=== PATIENT | female | born 1950 | race African-American/Black ===

== ENCOUNTER 2018-07-07 16:54 | Inpatient (IN) | payer MEDICARE, MEDICAID ==
[~2018-07-07] VITALS: Ht 162.6 cm; Wt 131.6 kg
[~2018-07-07 16:54] MED LIST: ALLO100T PO; CARV25TA47 PO; ESCI10TA54 PO; FLUT1DIS2 IH; FURO-151 PO; GABA-531 PO; INSU100I7 SQ; IVAB5TAB PO; LEVVL SQ; MONT5TAB13 PO; SACU1TAB PO; SIMV40TA5 PO
[2018-07-07] MEDS ORDERED: IPRATROPIUM BROMIDE (0.02%) 0.5MG/2.5ML NEB HHN STA (16:57)
[2018-07-07] MEDS ORDERED: METHYLPREDNISOLONE SOD SUCC 125 MG/2 ML VIAL IV STA (16:57)
[2018-07-07] MEDS ORDERED: ALBUTEROL (0.083%) 2.5MG/3ML NEB HHN STA (16:57)
[2018-07-07] MEDS ORDERED: MAGNESIUM 2 G PREMIX 50 ML IV ONE (17:00)
[2018-07-07 18:18] LABS: BASOPHILS % 0.7 % (0.0-2.0); EOSINOPHILS % 1.7 % (0.0-5.0); HEMATOCRIT. 35.1 % (36.0-48.0); HEMOGLOBIN. 11.6 g/dL (12.0-16.0); LYMPHOCYTES % 25.9 % (20.0-50.0); MEAN CORPUSCULAR HEMOGLOBIN 29.6 pg (28.0-32.0); MEAN CORPUSCULAR VOLUME 89.3 fL (81.0-99.0); MEAN PLATELET VOLUME 9.7 fl (7.4-10.4); MONOCYTES % 11.6 % (2.0-8.0); NEUTROPHILS % 60.1 % (40.0-76.0); PLATELET 166 x1000/uL (130-400); RED BLOOD CELL COUNT 3.93 mill/uL (4.2-5.4); RED CELL DISTRIBUTION WIDTH 17.1 % (11.6-14.6)
[2018-07-07 18:23] LABS: CHLORIDE 108 mEq/L (98-107)
[2018-07-07 20:31] LABS: CLARITY URINE CLEAR (CLEAR); COLOR URINE YELLOW (YELLOW); KETONES URINE NEGATIVE (NEGATIVE); LEUKOCYTE ESTERASE URINE NEGATIVE (NEGATIVE); NITRITE URINE NEGATIVE (NEGATIVE); OCCULT BLOOD URINE NEGATIVE (NEGATIVE); PROTEIN URINE NEGATIVE (NEGATIVE); SPECIFIC GRAVITY URINE 1.015 (1.005-1.030)
[2018-07-07] MEDS ORDERED: IPRATROPIUM/ALBUTEROL 0.5-3(2.5)MG/3ML NEB INH PRN (22:00)
[2018-07-07] MEDS ORDERED: CLONIDINE 0.1MG TABLET PO PRN (22:00)
[2018-07-07] MEDS ORDERED: ACETAMINOPHEN 325MG TABLET PO PRN (22:00)
[2018-07-07] MEDS ORDERED: MAGNESIUM/ALUMINUM HYDROXIDE/SIMETHICONE 30ML UDC PO PRN (22:00)
[2018-07-07] MEDS ORDERED: ONDANSETRON HCL 4MG/2ML INJ IV PRN (22:00)
[2018-07-07] MEDS ORDERED: NA PHOS,M-B/NA PHOS,DI-BA ENEMA 118ML PR PRN (22:00)
[2018-07-07] MEDS ORDERED: MORPHINE SULFATE 10MG/5ML ORAL SOLN UDC PO PRN (22:00)
[2018-07-07 23:00] VITALS: BP 134/72
[2018-07-07] MEDS ORDERED: PREG75CA PO (23:21)
[2018-07-07] MEDS ORDERED: TIOT18CA3 INH (23:40)
[2018-07-07] MEDS ORDERED: HYDR-4001 MT (23:40)
[2018-07-07] MEDS ORDERED: DEXTROSE 50% WATER 50ML SYRINGE IV PRN (23:45)
[2018-07-08] VITALS (12 sets, daily range): BP systolic 116–142; BP diastolic 57–90
[2018-07-08 00:04] LABS: CREATINE KINASE 62 IU/L (26-192)
[2018-07-08 00:05] LABS: CREATINE KINASE MB FRACTION < 1.0 ng/mL (0.5-3.6)
[2018-07-08] MEDS: HYDROCODONE/ACETAMINOPHEN 5/325MG TABLET PO PRN ×2 (00:18→08:32)
[2018-07-08 07:12] LABS: BASOPHILS % 0.2 % (0.0-2.0); HEMATOCRIT. 36.8 % (36.0-48.0); HEMOGLOBIN. 11.8 g/dL (12.0-16.0); LYMPHOCYTES % 14.1 % (20.0-50.0); MEAN CORPUSCULAR HEMOGLOBIN 28.9 pg (28.0-32.0); MEAN CORPUSCULAR VOLUME 90.1 fL (81.0-99.0); MEAN PLATELET VOLUME 10.1 fl (7.4-10.4); MONOCYTES % 1.5 % (2.0-8.0); NEUTROPHILS % 84.2 % (40.0-76.0); PLATELET 160 x1000/uL (130-400); RED BLOOD CELL COUNT 4.08 mill/uL (4.2-5.4); RED CELL DISTRIBUTION WIDTH 17.3 % (11.6-14.6)
[2018-07-08 07:47] LABS: CHLORIDE 108 mEq/L (98-107)
[2018-07-08 07:56] LABS: LDL CHOLESTEROL 78 mg/dL (5-100)
[2018-07-08 07:58] LABS: CREATINE KINASE 61 IU/L (26-192)
[2018-07-08 07:59] LABS: HDL CHOLESTEROL 48 mg/dL (40-59)
[2018-07-08 08:02] LABS: CREATINE KINASE MB FRACTION < 1.0 ng/mL (0.5-3.6)
[2018-07-08] MEDS: BLOOD SUGAR DIAGNOSTIC STRIP TEST SCH ×4 (08:15→21:22)
[2018-07-08] MEDS: ENOXAPARIN 40MG/0.4ML SYR SUBCUT SCH ×2 (08:29→21:21)
[2018-07-08] MEDS: FUROSEMIDE 40MG/4ML VIAL IV SCH ×2 (08:29→17:10)
[2018-07-08] MEDS: POTASSIUM CHLORIDE 20MEQ TABLET SR PO SCH (08:30)
[2018-07-08] MEDS: CARVEDILOL 25MG TABLET PO SCH ×2 (08:30→21:20)
[2018-07-08] MEDS: INSULIN LISPRO 100 UNITS/ML SUBCUT SCH ×4 (08:32→21:00)
[2018-07-08] MEDS: CITALOPRAM HYDROBROMIDE 10MG TABLET PO SCH (12:13)
[2018-07-08 12:17] LABS: BG BASE EXCESS 0.6 mmol/L (-2.0-2.0); BG CARBOXYHEMOGLOBIN 0.4 % (0.5-1.5); BG DEOXYHEMOGLOBIN 2.7 % (0.0-5.0); BG FRACTION INSPIRED OXYGEN 26; BG HCO3 ACT 25.3 mmol/L (22.0-26.0); BG METHEMOGLOBIN 0.3 % (0.0-1.5); BG OXYGEN SATURATION 97.3 % (92.0-98.5); BG OXYHEMOGLOBIN 96.6 % (94.0-97.0); BG PCO2 40.8 mmHg (35.0-45.0); BG PO2 96.5 mmHg (75.0-100.0); BG SAMPLE SITE RIGHT RADIAL; BG TOTAL HEMOGLOBIN 11.9 g/dL (12.0-18.0); BG VENT MODE NASAL CANNULA
[2018-07-08] MEDS ORDERED: ALPRAZOLAM 0.5 MG TABLET PO PRN (14:45)
[2018-07-08] MEDS: MORPHINE SULFATE 10MG/5ML ORAL SOLN UDC PO PRN ×2 (15:50→23:02)
[2018-07-08 19:29] LABS: *AMPHETAMINES SCREEN URINE NEGATIVE (NEGATIVE); *BARBITURATES SCREEN URINE NEGATIVE (NEGATIVE); *BENZODIAZEPINES SCREEN URINE NEGATIVE (NEGATIVE)
[2018-07-08 19:30] LABS: *COCAINE SCREEN URINE NEGATIVE (NEGATIVE); METHADONE URINE SCREEN NEGATIVE (NEGATIVE); OPIATES URINE SCREEN PRESUMTIVE POSITIVE (NEGATIVE); PHENCYCLIDINE URINE SCREEN NEGATIVE (NEGATIVE)
[2018-07-08 19:31] LABS: CANNABINOID URINE SCREEN NEGATIVE (NEGATIVE)
[2018-07-09] VITALS (12 sets, daily range): BP systolic 108–133; BP diastolic 54–84
[2018-07-09] MEDS: INSULIN LISPRO 100 UNITS/ML SUBCUT SCH ×4 (08:00→21:00)
[2018-07-09] MEDS: BLOOD SUGAR DIAGNOSTIC STRIP TEST SCH ×4 (08:25→21:19)
[2018-07-09] MEDS: LOSARTAN POTASSIUM 25 MG TABLET PO SCH (08:26)
[2018-07-09] MEDS: FUROSEMIDE 40MG/4ML VIAL IV SCH ×2 (08:26→17:45)
[2018-07-09] MEDS: ENOXAPARIN 40MG/0.4ML SYR SUBCUT SCH ×2 (08:26→21:20)
[2018-07-09] MEDS: CARVEDILOL 25MG TABLET PO SCH ×2 (08:27→21:00)
[2018-07-09] MEDS: CITALOPRAM HYDROBROMIDE 10MG TABLET PO SCH (08:27)
[2018-07-09] MEDS: POTASSIUM CHLORIDE 20MEQ TABLET SR PO SCH (08:27)
[2018-07-09 09:53] LABS: BASOPHILS % 0.4 % (0.0-2.0); EOSINOPHILS % 0.4 % (0.0-5.0); HEMATOCRIT. 35.8 % (36.0-48.0); HEMOGLOBIN. 11.8 g/dL (12.0-16.0); LYMPHOCYTES % 9.9 % (20.0-50.0); MEAN CORPUSCULAR HEMOGLOBIN 29.6 pg (28.0-32.0); MEAN CORPUSCULAR VOLUME 90.1 fL (81.0-99.0); MEAN PLATELET VOLUME 9.8 fl (7.4-10.4); NEUTROPHILS % 77.3 % (40.0-76.0); PLATELET 152 x1000/uL (130-400); RED BLOOD CELL COUNT 3.98 mill/uL (4.2-5.4); RED CELL DISTRIBUTION WIDTH 16.7 % (11.6-14.6)
[2018-07-09] MEDS: MORPHINE SULFATE 10MG/5ML ORAL SOLN UDC PO PRN ×2 (09:53→15:25)
[2018-07-09 11:34] LABS: CHLORIDE 102 mEq/L (98-107)
[2018-07-09 11:42] LABS: CREATINE KINASE MB FRACTION < 1.0 ng/mL (0.5-3.6); LDL CHOLESTEROL 80 mg/dL (5-100)
[2018-07-09 11:43] LABS: CREATINE KINASE 53 IU/L (26-192); HDL CHOLESTEROL 49 mg/dL (40-59)
[2018-07-09] MEDS: MONTELUKAST SODIUM 10MG TABLET PO SCH (17:56)
[2018-07-10] MEDS: MORPHINE SULFATE 10MG/5ML ORAL SOLN UDC PO PRN ×3 (02:13→23:43)
[2018-07-10 06:00] VITALS: BP 132/73
[2018-07-10] MEDS: BLOOD SUGAR DIAGNOSTIC STRIP TEST SCH ×4 (07:30→21:43)
[2018-07-10 08:00] VITALS: BP 133/63
[2018-07-10] MEDS: INSULIN LISPRO 100 UNITS/ML SUBCUT SCH ×4 (08:00→21:00)
[2018-07-10] MEDS: ENOXAPARIN 40MG/0.4ML SYR SUBCUT SCH ×2 (09:36→21:43)
[2018-07-10] MEDS: FUROSEMIDE 40MG/4ML VIAL IV SCH ×2 (09:36→17:32)
[2018-07-10] MEDS: POTASSIUM CHLORIDE 20MEQ TABLET SR PO SCH (09:36)
[2018-07-10] MEDS: LOSARTAN POTASSIUM 25 MG TABLET PO SCH (09:36)
[2018-07-10] MEDS: CARVEDILOL 25MG TABLET PO SCH ×2 (09:38→21:47)
[2018-07-10] MEDS: CITALOPRAM HYDROBROMIDE 10MG TABLET PO SCH (09:40)
[2018-07-10 10:00] VITALS: BP 111/62
[2018-07-10 12:00] VITALS: BP 108/73
[2018-07-10 16:00] VITALS: BP 113/64
[2018-07-10] MEDS: MONTELUKAST SODIUM 10MG TABLET PO SCH (17:32)
[2018-07-11 07:44] LABS: HEMATOCRIT. 35.4 % (36.0-48.0); HEMOGLOBIN. 11.7 g/dL (12.0-16.0); MEAN CORPUSCULAR HEMOGLOBIN 29.7 pg (28.0-32.0); MEAN CORPUSCULAR VOLUME 89.7 fL (81.0-99.0); MEAN PLATELET VOLUME 9.8 fl (7.4-10.4); PLATELET 147 x1000/uL (130-400); RED BLOOD CELL COUNT 3.95 mill/uL (4.2-5.4); RED CELL DISTRIBUTION WIDTH 16.4 % (11.6-14.6)
[2018-07-11 08:00] VITALS: BP 114/67
[2018-07-11] MEDS: INSULIN LISPRO 100 UNITS/ML SUBCUT SCH ×4 (08:00→21:00)
[2018-07-11] MEDS: BLOOD SUGAR DIAGNOSTIC STRIP TEST SCH ×3 (08:15→17:25)
[2018-07-11 08:41] LABS: CHLORIDE 100 mEq/L (98-107)
[2018-07-11] MEDS: FUROSEMIDE 40MG/4ML VIAL IV SCH ×2 (09:29→17:33)
[2018-07-11] MEDS: ENOXAPARIN 40MG/0.4ML SYR SUBCUT SCH ×2 (09:29→23:10)
[2018-07-11] MEDS: LOSARTAN POTASSIUM 25 MG TABLET PO SCH (09:29)
[2018-07-11] MEDS: POTASSIUM CHLORIDE 20MEQ TABLET SR PO SCH (09:29)
[2018-07-11] MEDS: CARVEDILOL 25MG TABLET PO SCH ×2 (09:29→23:09)
[2018-07-11] MEDS: CITALOPRAM HYDROBROMIDE 10MG TABLET PO SCH (09:30)
[2018-07-11 12:00] VITALS: BP 118/53
[2018-07-11 13:38] LABS: PLATELET ESTIMATE NORMAL
[2018-07-11 15:49] VITALS: BP 118/53
[2018-07-11] MEDS: MONTELUKAST SODIUM 10MG TABLET PO SCH (17:33)
[2018-07-11 20:30] VITALS: BP 132/77
[2018-07-11 22:00] VITALS: BP 127/75
[2018-07-12] VITALS: BP 130/74
[2018-07-12 02:00] VITALS: BP 106/56
[2018-07-12 04:26] VITALS: BP 107/55
[2018-07-12] MEDS: BLOOD SUGAR DIAGNOSTIC STRIP TEST SCH (07:59)
[2018-07-12 08:00] VITALS: BP 101/62
[2018-07-12] MEDS: INSULIN LISPRO 100 UNITS/ML SUBCUT SCH (08:00)
[2018-07-12] MEDS: CARVEDILOL 25MG TABLET PO SCH (09:00)
[2018-07-12] MEDS: LOSARTAN POTASSIUM 25 MG TABLET PO SCH (09:00)
[2018-07-12] MEDS: POTASSIUM CHLORIDE 20MEQ TABLET SR PO SCH (09:26)
[2018-07-12] MEDS: FUROSEMIDE 40MG/4ML VIAL IV SCH (09:26)
[2018-07-12] MEDS: ENOXAPARIN 40MG/0.4ML SYR SUBCUT SCH (09:27)
[2018-07-12] MEDS: CITALOPRAM HYDROBROMIDE 10MG TABLET PO SCH (09:30)
== END 2018-07-12 11:00 | disposition home health service (06) | DRG 291 ==
LOC: ER 16:54 → 5EST 18:59 → EDBEDREQTM 19:00 → EDBEDREQ 19:00 → ENRESERV 21:21 → SUPCPDRO 21:58
PROVIDERS: ADMIT Hospitalist; ATTEND Hospitalist
PROC: 5A09357 Assistance with Respiratory Ventilation, Less than 24 Consecutive Hours, Continuous Positive Airway Pressure (ICD-10-PCS; principal; 2018-07-07)
PROC: 5A09357 Assistance with Respiratory Ventilation, Less than 24 Consecutive Hours, Continuous Positive Airway Pressure (ICD-10-PCS; 2018-07-09)
PROC: 5A09357 Assistance with Respiratory Ventilation, Less than 24 Consecutive Hours, Continuous Positive Airway Pressure (ICD-10-PCS; 2018-07-10)
PROC: 5A09357 Assistance with Respiratory Ventilation, Less than 24 Consecutive Hours, Continuous Positive Airway Pressure (ICD-10-PCS; 2018-07-12)
DX: I11.0 Hypertensive heart disease with heart failure (principal); J96.02 Acute respiratory failure with hypercapnia; J96.01 Acute respiratory failure with hypoxia; J44.1 Chronic obstructive pulmonary disease with (acute) exacerbation; E46 Unspecified protein-calorie malnutrition; E87.2 Acidosis; J45.901 Unspecified asthma with (acute) exacerbation; I69.351 Hemiplegia and hemiparesis following cerebral infarction affecting right dominant side; Z68.42 Body mass index [BMI] 45.0-49.9, adult; I25.10 Atherosclerotic heart disease of native coronary artery without angina pectoris; I42.0 Dilated cardiomyopathy; I27.20 Pulmonary hypertension, unspecified; F32.9 Major depressive disorder, single episode, unspecified; G47.33 Obstructive sleep apnea (adult) (pediatric); E11.65 Type 2 diabetes mellitus with hyperglycemia; M10.9 Gout, unspecified; I49.3 Ventricular premature depolarization; I48.91 Unspecified atrial fibrillation; E87.5 Hyperkalemia; E66.01 Morbid (severe) obesity due to excess calories; E78.00 Pure hypercholesterolemia, unspecified; E11.42 Type 2 diabetes mellitus with diabetic polyneuropathy; Z92.21 Personal history of antineoplastic chemotherapy; Z90.710 Acquired absence of both cervix and uterus; Z85.72 Personal history of non-Hodgkin lymphomas; Z85.42 Personal history of malignant neoplasm of other parts of uterus; Z80.1 Family history of malignant neoplasm of trachea, bronchus and lung; Z82.49 Family history of ischemic heart disease and other diseases of the circulatory system; Z83.3 Family history of diabetes mellitus; Z95.5 Presence of coronary angioplasty implant and graft; Z87.891 Personal history of nicotine dependence; Z79.899 Other long term (current) drug therapy; Z95.810 Presence of automatic (implantable) cardiac defibrillator; I50.23 Acute on chronic systolic (congestive) heart failure
CPT/HCPCS: 36415; 36600; 71045; 80061; 80305; 82375; 82550; 82553; 82805; 82962; 83605; 83735; 83880; 84443; 84484; 85379; 87804; 93005; 93306; 93970; 94640; 94660; 96365; 96366; 96375; 99285; J1650; J1815; J1940; J2930; J3475; J7611; J7620; A4315

== ENCOUNTER 2019-09-03 22:15 | Inpatient (IN) | payer MEDICARE, MEDICAID ==
[~2019-09-03] VITALS: Ht 165.1 cm; Wt 145.1 kg
[~2019-09-03 22:15] MED LIST changes: -ESCI10TA54 PO; +ESCI10TA61 PO; -GABA-531 PO; +HYDR-4001 MT; +PREG75CA PO; +SIMV-46 PO; -SIMV40TA5 PO; +TIOT18CA3 INH
[2019-09-03] MEDS ORDERED: NITROGLYCERIN 0.4MG TABLET SL SL PRN (22:30)
[2019-09-03] MEDS ORDERED: FUROSEMIDE 40MG/4ML VIAL IV ONE (22:30)
[2019-09-03 22:49] LABS: BASOPHILS % 0.7 % (0.0-2.0); EOSINOPHILS % 0.7 % (0.0-5.0); HEMATOCRIT. 35.4 % (36.0-48.0); HEMOGLOBIN. 11.5 g/dL (12.0-16.0); LYMPHOCYTES % 11.7 % (20.0-50.0); MEAN CORPUSCULAR HEMOGLOBIN 29.1 pg (28.0-32.0); MEAN CORPUSCULAR VOLUME 89.5 fL (81.0-99.0); MEAN PLATELET VOLUME 9.3 fl (7.4-10.4); MONOCYTES % 11.1 % (2.0-8.0); NEUTROPHILS % 75.8 % (40.0-76.0); PLATELET 211 x1000/uL (130-400); RED BLOOD CELL COUNT 3.96 mill/uL (4.2-5.4); RED CELL DISTRIBUTION WIDTH 17.4 % (11.6-14.6)
[2019-09-03 22:53] LABS: CHLORIDE 109 mEq/L (98-107)
[2019-09-04] VITALS (8 sets, daily range): BP systolic 101–119; BP diastolic 50–70
[2019-09-04] MEDS ORDERED: MAGNESIUM/ALUMINUM HYDROXIDE/SIMETHICONE 30ML UDC PO PRN (02:15)
[2019-09-04] MEDS ORDERED: CLONIDINE 0.1MG TABLET PO PRN (02:15)
[2019-09-04] MEDS ORDERED: NA PHOS,M-B/NA PHOS,DI-BA ENEMA 118ML PR PRN (02:15)
[2019-09-04] MEDS ORDERED: IPRATROPIUM/ALBUTEROL 0.5-3(2.5)MG/3ML NEB NEB PRN (02:15)
[2019-09-04] MEDS ORDERED: LORAZEPAM 2MG/ML CPJ IV PRN (02:15)
[2019-09-04] MEDS ORDERED: GUAIFENESIN 200MG/10ML SUGAR FREE UDC PO PRN (02:15)
[2019-09-04] MEDS ORDERED: DIPHENHYDRAMINE 50MG/ML VIAL IV PRN (02:15)
[2019-09-04] MEDS ORDERED: DOCUSATE SODIUM 100MG CAPSULE PO PRN (02:15)
[2019-09-04] MEDS ORDERED: ONDANSETRON HCL 4MG/2ML INJ IV PRN (02:15)
[2019-09-04 11:42] LABS: CHLORIDE 112 mEq/L (98-107)
[2019-09-04] MEDS: FUROSEMIDE 40MG/4ML VIAL IV SCH ×2 (12:23→17:38)
[2019-09-04] MEDS: ASPIRIN 81MG EC TABLET PO SCH (12:23)
[2019-09-04] MEDS ORDERED: LEVOFLOXACIN 500MG PREMIX 100 ML IV SCH (13:00)
[2019-09-04] MEDS ORDERED: PNEUMOCOCCAL 23-VAL P-SAC VAC 0.5 ML IM ONE (13:15)
[2019-09-04] MEDS: HYDROCODONE/ACETAMINOPHEN 5/325MG TABLET PO PRN (14:51)
[2019-09-04] MEDS ORDERED: NON FORMULARY PATIENT HOME MED XX SCH (17:45)
[2019-09-04] MEDS ORDERED: IPRATROPIUM/ALBUTEROL 0.5-3(2.5)MG/3ML NEB HHN PRN (17:45)
[2019-09-04] MEDS ORDERED: DEXTROSE 50% WATER 50ML SYRINGE IV PRN (20:30)
[2019-09-04] MEDS: CARVEDILOL 6.25 MG TABLET PO SCH (20:57)
[2019-09-04] MEDS: ENOXAPARIN 40MG/0.4ML SYR SUBCUT SCH (20:58)
[2019-09-04] MEDS: MORPHINE SULFATE 2 MG/ML CPJ (NOT FOR IM USE) IV PRN (20:58)
[2019-09-04] MEDS ORDERED: CARVEDILOL 3.125 MG TABLET PO SCH (21:00)
[2019-09-04] MEDS: INSULIN LISPRO 100 UNITS/ML SUBCUT SCH (21:00)
[2019-09-04] MEDS: BLOOD SUGAR DIAGNOSTIC STRIP TEST SCH (21:48)
[2019-09-04] MEDS: SACUBITRIL/VALSARTAN 24/26 TAB PO SCH (22:19)
[2019-09-05] VITALS (14 sets, daily range): BP systolic 104–140; BP diastolic 43–99
[2019-09-05] MEDS: IPRATROPIUM/ALBUTEROL 0.5-3(2.5)MG/3ML NEB HHN SCH ×4 (01:14→21:10)
[2019-09-05] MEDS: BLOOD SUGAR DIAGNOSTIC STRIP TEST SCH ×4 (06:45→20:48)
[2019-09-05] MEDS: INSULIN LISPRO 100 UNITS/ML SUBCUT SCH ×4 (06:45→21:00)
[2019-09-05] MEDS: FUROSEMIDE 40MG/4ML VIAL IV SCH (06:46)
[2019-09-05 07:12] LABS: BASOPHILS % 0.4 % (0.0-2.0); EOSINOPHILS % 1.2 % (0.0-5.0); HEMATOCRIT. 31.5 % (36.0-48.0); HEMOGLOBIN. 10.2 g/dL (12.0-16.0); LYMPHOCYTES % 12.4 % (20.0-50.0); MEAN CORPUSCULAR HEMOGLOBIN 29.3 pg (28.0-32.0); MEAN CORPUSCULAR VOLUME 90.5 fL (81.0-99.0); MONOCYTES % 11.7 % (2.0-8.0); NEUTROPHILS % 74.3 % (40.0-76.0); RED BLOOD CELL COUNT 3.48 mill/uL (4.2-5.4); RED CELL DISTRIBUTION WIDTH 17.6 % (11.6-14.6)
[2019-09-05] MEDS: ASPIRIN 81MG EC TABLET PO SCH (07:46)
[2019-09-05] MEDS: ENOXAPARIN 40MG/0.4ML SYR SUBCUT SCH (07:47)
[2019-09-05] MEDS: SACUBITRIL/VALSARTAN 24/26 TAB PO SCH ×2 (07:50→20:47)
[2019-09-05] MEDS: CARVEDILOL 6.25 MG TABLET PO SCH ×2 (07:50→20:47)
[2019-09-05 07:54] LABS: CHLORIDE 110 mEq/L (98-107)
[2019-09-05 08:03] LABS: LDL CHOLESTEROL 56 mg/dL (5-100)
[2019-09-05 08:05] LABS: HDL CHOLESTEROL 46 mg/dL (40-59); T4 FREE 1.01 ng/dL (0.76-1.46)
[2019-09-05] MEDS ORDERED: LISINOPRIL 5MG TABLET PO SCH (09:00)
[2019-09-05] MEDS ORDERED: SACUBITRIL/VALSARTAN 24/26 TAB PO SCH (09:00)
[2019-09-05] MEDS: LEVOFLOXACIN 500MG PREMIX 100 ML IV SCH (11:00)
[2019-09-05 11:55] LABS: PLATELET 144 x1000/uL (130-400)
[2019-09-05] MEDS: MORPHINE SULFATE 2 MG/ML CPJ (NOT FOR IM USE) IV PRN ×2 (14:45→21:16)
[2019-09-05] MEDS ORDERED: BENZONATATE 100MG CAPSULE PO PRN (15:00)
[2019-09-05] MEDS: FUROSEMIDE 100MG/10ML VIAL IV SCH (20:47)
[2019-09-05] MEDS: ATORVASTATIN CALCIUM 40MG TABLET PO SCH (20:48)
[2019-09-06] VITALS (19 sets, daily range): BP systolic 95–136; BP diastolic 41–81
[2019-09-06] MEDS: IPRATROPIUM/ALBUTEROL 0.5-3(2.5)MG/3ML NEB HHN SCH ×3 (01:30→22:25)
[2019-09-06] MEDS: FUROSEMIDE 100MG/10ML VIAL IV SCH ×3 (06:10→18:00)
[2019-09-06] MEDS: INSULIN LISPRO 100 UNITS/ML SUBCUT SCH ×4 (06:29→20:29)
[2019-09-06] MEDS: BLOOD SUGAR DIAGNOSTIC STRIP TEST SCH ×4 (06:29→20:29)
[2019-09-06] MEDS: ASPIRIN 81MG EC TABLET PO SCH (09:13)
[2019-09-06] MEDS: CARVEDILOL 6.25 MG TABLET PO SCH ×2 (09:22→20:28)
[2019-09-06] MEDS: SACUBITRIL/VALSARTAN 24/26 TAB PO SCH ×2 (09:22→20:29)
[2019-09-06 09:36] LABS: BASOPHILS % 0.5 % (0.0-2.0); EOSINOPHILS % 1.5 % (0.0-5.0); HEMATOCRIT. 29.1 % (36.0-48.0); HEMOGLOBIN. 9.6 g/dL (12.0-16.0); LYMPHOCYTES % 12.4 % (20.0-50.0); MEAN CORPUSCULAR HEMOGLOBIN 29.6 pg (28.0-32.0); MEAN CORPUSCULAR VOLUME 89.7 fL (81.0-99.0); MONOCYTES % 12.5 % (2.0-8.0); NEUTROPHILS % 73.1 % (40.0-76.0); PLATELET 138 x1000/uL (130-400); RED BLOOD CELL COUNT 3.24 mill/uL (4.2-5.4); RED CELL DISTRIBUTION WIDTH 17.2 % (11.6-14.6)
[2019-09-06] MEDS ORDERED: LIDOCAINE HCL/EPINEPHRINE 1%-EPI 1:100,000 20 ML VIAL INFIL SCH (10:45)
[2019-09-06] MEDS: LEVOFLOXACIN 500MG PREMIX 100 ML IV SCH (12:10)
[2019-09-06] MEDS: FUROSEMIDE 40MG TABLET PO SCH (20:29)
[2019-09-06] MEDS: HYDROCODONE/ACETAMINOPHEN 5/325MG TABLET PO PRN (20:59)
[2019-09-06] MEDS: ATORVASTATIN CALCIUM 40MG TABLET PO SCH (20:59)
[2019-09-07] VITALS (16 sets, daily range): BP systolic 90–138; BP diastolic 30–82
[2019-09-07] MEDS: IPRATROPIUM/ALBUTEROL 0.5-3(2.5)MG/3ML NEB HHN SCH ×2 (03:01→21:05)
[2019-09-07] MEDS: INSULIN LISPRO 100 UNITS/ML SUBCUT SCH ×4 (05:43→20:51)
[2019-09-07] MEDS: BLOOD SUGAR DIAGNOSTIC STRIP TEST SCH ×4 (05:43→20:51)
[2019-09-07 07:08] LABS: BASOPHILS % 0.7 % (0.0-2.0); EOSINOPHILS % 2.4 % (0.0-5.0); HEMOGLOBIN. 10.6 g/dL (12.0-16.0); LYMPHOCYTES % 15.1 % (20.0-50.0); MEAN CORPUSCULAR HEMOGLOBIN 30.5 pg (28.0-32.0); MEAN CORPUSCULAR VOLUME 88.7 fL (81.0-99.0); MEAN PLATELET VOLUME 9.6 fl (7.4-10.4); MONOCYTES % 12.5 % (2.0-8.0); NEUTROPHILS % 69.3 % (40.0-76.0); PLATELET 165 x1000/uL (130-400); RED BLOOD CELL COUNT 3.49 mill/uL (4.2-5.4); RED CELL DISTRIBUTION WIDTH 16.9 % (11.6-14.6)
[2019-09-07] MEDS: FUROSEMIDE 40MG TABLET PO SCH ×2 (08:14→20:50)
[2019-09-07] MEDS: ASPIRIN 81MG EC TABLET PO SCH (08:14)
[2019-09-07] MEDS: CARVEDILOL 6.25 MG TABLET PO SCH ×2 (08:16→20:40)
[2019-09-07] MEDS: SACUBITRIL/VALSARTAN 24/26 TAB PO SCH ×2 (08:16→20:39)
[2019-09-07] MEDS: LEVOFLOXACIN 500MG PREMIX 100 ML IV SCH (11:49)
[2019-09-07] MEDS: SILDENAFIL CITRATE 20MG TABLET PO SCH ×2 (14:28→21:05)
[2019-09-07] MEDS: CORLANOR 5 MG PO SCH (17:38)
[2019-09-07] MEDS: ATORVASTATIN CALCIUM 40MG TABLET PO SCH (20:39)
[2019-09-07] MEDS: MORPHINE SULFATE 2 MG/ML CPJ (NOT FOR IM USE) IV PRN (20:39)
[2019-09-08] VITALS (10 sets, daily range): BP systolic 98–127; BP diastolic 50–72
[2019-09-08] MEDS: IPRATROPIUM/ALBUTEROL 0.5-3(2.5)MG/3ML NEB HHN SCH ×4 (02:06→21:52)
[2019-09-08] MEDS: SILDENAFIL CITRATE 20MG TABLET PO SCH ×3 (05:32→22:00)
[2019-09-08] MEDS: BLOOD SUGAR DIAGNOSTIC STRIP TEST SCH ×4 (06:47→21:27)
[2019-09-08] MEDS: INSULIN LISPRO 100 UNITS/ML SUBCUT SCH ×4 (06:48→21:00)
[2019-09-08] MEDS: ASPIRIN 81MG EC TABLET PO SCH (08:42)
[2019-09-08] MEDS: FUROSEMIDE 40MG TABLET PO SCH ×2 (08:42→21:00)
[2019-09-08] MEDS: CARVEDILOL 6.25 MG TABLET PO SCH ×2 (08:44→21:00)
[2019-09-08] MEDS: CORLANOR 5 MG PO SCH ×2 (09:47→18:02)
[2019-09-08] MEDS: SACUBITRIL/VALSARTAN 24/26 TAB PO SCH ×2 (09:47→21:00)
[2019-09-08] MEDS: LEVOFLOXACIN 500MG TABLET PO SCH (11:08)
[2019-09-08 14:23] LABS: BG BASE EXCESS 5.4 mmol/L (-2.0-2.0); BG CARBOXYHEMOGLOBIN 0.5 % (0.5-1.5); BG DEOXYHEMOGLOBIN 6.7 % (0.0-5.0); BG FRACTION INSPIRED OXYGEN 21; BG HCO3 ACT 29.8 mmol/L (22.0-26.0); BG METHEMOGLOBIN 0.1 % (0.0-1.5); BG OXYGEN SATURATION 93.3 % (92.0-98.5); BG OXYHEMOGLOBIN 92.7 % (94.0-97.0); BG PCO2 42.7 mmHg (35.0-45.0); BG PH 7.461 (7.350-7.450); BG PO2 65.4 mmHg (75.0-100.0); BG SAMPLE SITE RIGHT BRACHIAL; BG TOTAL HEMOGLOBIN 11.1 g/dL (12.0-18.0); BG VENT MODE ROOM AIR
[2019-09-08] MEDS: ATORVASTATIN CALCIUM 40MG TABLET PO SCH (21:28)
[2019-09-09] VITALS: BP 109/50
[2019-09-09] MEDS: IPRATROPIUM/ALBUTEROL 0.5-3(2.5)MG/3ML NEB HHN SCH ×4 (03:39→21:56)
[2019-09-09 04:00] VITALS: BP 111/34
[2019-09-09] MEDS: SILDENAFIL CITRATE 20MG TABLET PO SCH ×3 (05:42→22:11)
[2019-09-09] MEDS: BLOOD SUGAR DIAGNOSTIC STRIP TEST SCH ×4 (05:48→21:52)
[2019-09-09] MEDS: INSULIN LISPRO 100 UNITS/ML SUBCUT SCH ×4 (05:48→21:00)
[2019-09-09 07:10] LABS: BASOPHILS % 0.5 % (0.0-2.0); EOSINOPHILS % 1.8 % (0.0-5.0); HEMATOCRIT. 29.5 % (36.0-48.0); HEMOGLOBIN. 9.7 g/dL (12.0-16.0); LYMPHOCYTES % 14.3 % (20.0-50.0); MEAN CORPUSCULAR HEMOGLOBIN 29.2 pg (28.0-32.0); MEAN CORPUSCULAR VOLUME 88.9 fL (81.0-99.0); MEAN PLATELET VOLUME 9.5 fl (7.4-10.4); MONOCYTES % 12.8 % (2.0-8.0); NEUTROPHILS % 70.6 % (40.0-76.0); PLATELET 154 x1000/uL (130-400); RED BLOOD CELL COUNT 3.32 mill/uL (4.2-5.4); RED CELL DISTRIBUTION WIDTH 16.9 % (11.6-14.6)
[2019-09-09 08:00] VITALS: BP 117/56
[2019-09-09] MEDS: ASPIRIN 81MG EC TABLET PO SCH (10:10)
[2019-09-09] MEDS: FUROSEMIDE 40MG TABLET PO SCH ×2 (10:11→17:40)
[2019-09-09] MEDS: SACUBITRIL/VALSARTAN 24/26 TAB PO SCH ×2 (10:11→22:12)
[2019-09-09] MEDS: CARVEDILOL 6.25 MG TABLET PO SCH ×2 (10:11→22:12)
[2019-09-09] MEDS: CORLANOR 5 MG PO SCH ×2 (10:12→17:39)
[2019-09-09] MEDS: LEVOFLOXACIN 500MG TABLET PO SCH (10:13)
[2019-09-09 12:00] VITALS: BP 98/49
[2019-09-09] MEDS ORDERED: MAGNESIUM 2 G PREMIX 50 ML IV ONE (15:00)
[2019-09-09 16:00] VITALS: BP 97/54
[2019-09-09] MEDS ORDERED: MAGNESIUM 2 G PREMIX 50 ML IV SCH (16:00)
[2019-09-09 20:00] VITALS: BP 107/43
[2019-09-09] MEDS: ATORVASTATIN CALCIUM 40MG TABLET PO SCH (22:12)
[2019-09-10] VITALS (7 sets, daily range): BP systolic 84–114; BP diastolic 40–65
[2019-09-10] MEDS: IPRATROPIUM/ALBUTEROL 0.5-3(2.5)MG/3ML NEB HHN SCH ×4 (02:58→22:16)
[2019-09-10] MEDS: SILDENAFIL CITRATE 20MG TABLET PO SCH ×3 (06:00→22:00)
[2019-09-10] MEDS: BLOOD SUGAR DIAGNOSTIC STRIP TEST SCH ×4 (07:00→20:32)
[2019-09-10] MEDS: INSULIN LISPRO 100 UNITS/ML SUBCUT SCH ×4 (07:00→20:32)
[2019-09-10] MEDS: CORLANOR 5 MG PO SCH ×2 (07:02→17:06)
[2019-09-10] MEDS: FUROSEMIDE 40MG TABLET PO SCH ×2 (09:02→17:05)
[2019-09-10] MEDS: CARVEDILOL 6.25 MG TABLET PO SCH ×2 (09:02→20:38)
[2019-09-10] MEDS: ASPIRIN 81MG EC TABLET PO SCH (09:02)
[2019-09-10] MEDS: SACUBITRIL/VALSARTAN 24/26 TAB PO SCH ×2 (09:03→20:39)
[2019-09-10] MEDS: LEVOFLOXACIN 500MG TABLET PO SCH (12:37)
[2019-09-10 17:41] LABS: BASOPHILS % 0.6 % (0.0-2.0); EOSINOPHILS % 2.5 % (0.0-5.0); HEMATOCRIT. 33.3 % (36.0-48.0); MEAN CORPUSCULAR HEMOGLOBIN 29.3 pg (28.0-32.0); MEAN CORPUSCULAR VOLUME 88.4 fL (81.0-99.0); MEAN PLATELET VOLUME 9.5 fl (7.4-10.4); MONOCYTES % 12.7 % (2.0-8.0); NEUTROPHILS % 68.2 % (40.0-76.0); PLATELET 148 x1000/uL (130-400); RED BLOOD CELL COUNT 3.76 mill/uL (4.2-5.4); RED CELL DISTRIBUTION WIDTH 17.1 % (11.6-14.6)
[2019-09-10] MEDS: ATORVASTATIN CALCIUM 40MG TABLET PO SCH (20:41)
[2019-09-11] VITALS (7 sets, daily range): BP systolic 99–111; BP diastolic 45–62
[2019-09-11] MEDS: ACETAMINOPHEN 325MG TABLET PO PRN (01:20)
[2019-09-11] MEDS: IPRATROPIUM/ALBUTEROL 0.5-3(2.5)MG/3ML NEB HHN SCH ×4 (01:26→21:28)
[2019-09-11] MEDS: SILDENAFIL CITRATE 20MG TABLET PO SCH ×3 (05:00→21:40)
[2019-09-11] MEDS: BLOOD SUGAR DIAGNOSTIC STRIP TEST SCH ×4 (05:45→21:39)
[2019-09-11] MEDS: INSULIN LISPRO 100 UNITS/ML SUBCUT SCH ×4 (06:15→21:00)
[2019-09-11] MEDS: CORLANOR 5 MG PO SCH ×2 (06:47→17:50)
[2019-09-11 07:34] LABS: CHLORIDE 104 mEq/L (98-107)
[2019-09-11 07:41] LABS: BASOPHILS % 0.6 % (0.0-2.0); HEMATOCRIT. 26.3 % (36.0-48.0); HEMOGLOBIN. 8.8 g/dL (12.0-16.0); LYMPHOCYTES % 21.2 % (20.0-50.0); MEAN CORPUSCULAR HEMOGLOBIN 29.7 pg (28.0-32.0); MEAN CORPUSCULAR VOLUME 88.3 fL (81.0-99.0); MEAN PLATELET VOLUME 9.3 fl (7.4-10.4); MONOCYTES % 13.5 % (2.0-8.0); NEUTROPHILS % 61.7 % (40.0-76.0); PLATELET 99 x1000/uL (130-400); RED BLOOD CELL COUNT 2.98 mill/uL (4.2-5.4); RED CELL DISTRIBUTION WIDTH 16.8 % (11.6-14.6)
[2019-09-11] MEDS: CARVEDILOL 6.25 MG TABLET PO SCH ×2 (09:00→21:00)
[2019-09-11] MEDS: SACUBITRIL/VALSARTAN 24/26 TAB PO SCH ×2 (09:00→21:00)
[2019-09-11] MEDS: ASPIRIN 81MG EC TABLET PO SCH (09:28)
[2019-09-11] MEDS: FUROSEMIDE 40MG TABLET PO SCH ×2 (09:28→17:48)
[2019-09-11] MEDS: LEVOFLOXACIN 500MG TABLET PO SCH (13:27)
[2019-09-11] MEDS: ATORVASTATIN CALCIUM 40MG TABLET PO SCH (21:39)
[2019-09-12] VITALS (7 sets, daily range): BP systolic 92–115; BP diastolic 37–62
[2019-09-12] MEDS: ACETAMINOPHEN 325MG TABLET PO PRN
[2019-09-12] MEDS: IPRATROPIUM/ALBUTEROL 0.5-3(2.5)MG/3ML NEB HHN SCH ×4 (01:58→21:46)
[2019-09-12] MEDS: INSULIN LISPRO 100 UNITS/ML SUBCUT SCH ×4 (06:31→21:00)
[2019-09-12] MEDS: BLOOD SUGAR DIAGNOSTIC STRIP TEST SCH ×4 (06:31→21:17)
[2019-09-12] MEDS: SILDENAFIL CITRATE 20MG TABLET PO SCH ×3 (06:46→22:00)
[2019-09-12] MEDS: CORLANOR 5 MG PO SCH ×2 (06:46→17:21)
[2019-09-12] MEDS: CARVEDILOL 6.25 MG TABLET PO SCH ×2 (09:00→21:00)
[2019-09-12] MEDS: SACUBITRIL/VALSARTAN 24/26 TAB PO SCH ×3 (09:00→21:00)
[2019-09-12] MEDS: ASPIRIN 81MG EC TABLET PO SCH (09:29)
[2019-09-12] MEDS: FUROSEMIDE 40MG TABLET PO SCH ×2 (09:29→17:20)
[2019-09-12] MEDS: ATORVASTATIN CALCIUM 40MG TABLET PO SCH (21:21)
[2019-09-13] VITALS: BP 130/55
[2019-09-13] MEDS: IPRATROPIUM/ALBUTEROL 0.5-3(2.5)MG/3ML NEB HHN SCH ×4 (02:25→21:17)
[2019-09-13 04:00] VITALS: BP 130/61
[2019-09-13] MEDS: SILDENAFIL CITRATE 20MG TABLET PO SCH ×3 (06:00→21:10)
[2019-09-13] MEDS: BLOOD SUGAR DIAGNOSTIC STRIP TEST SCH ×4 (06:26→20:51)
[2019-09-13] MEDS: INSULIN LISPRO 100 UNITS/ML SUBCUT SCH ×4 (06:26→20:52)
[2019-09-13 06:40] LABS: HEMATOCRIT 29.5 % (36.0-48.0); HEMOGLOBIN 9.7 g/dL (12.0-16.0); MEAN CORPUSCULAR HEMOGLOBIN 29.4 pg (28.0-32.0); MEAN CORPUSCULAR VOLUME 88.8 fL (81.0-99.0); PLATELET 137 x1000/uL (130-400); RED BLOOD CELL COUNT 3.32 mill/uL (4.2-5.4); RED CELL DISTRIBUTION WIDTH 17.2 % (11.6-14.6)
[2019-09-13] MEDS: CORLANOR 5 MG PO SCH ×2 (06:58→17:20)
[2019-09-13 08:00] VITALS: BP 111/63
[2019-09-13] MEDS: CARVEDILOL 6.25 MG TABLET PO SCH ×2 (08:50→20:54)
[2019-09-13] MEDS: ASPIRIN 81MG EC TABLET PO SCH (08:56)
[2019-09-13] MEDS: FUROSEMIDE 40MG TABLET PO SCH ×2 (08:56→17:00)
[2019-09-13] MEDS: SACUBITRIL/VALSARTAN 24/26 TAB PO SCH ×2 (08:56→20:54)
[2019-09-13 12:00] VITALS: BP 101/53
[2019-09-13] MEDS ORDERED: POTASSIUM CHLORIDE 20MEQ/PACKET PO SCH (14:00)
[2019-09-13 16:00] VITALS: BP 105/35
[2019-09-13 20:00] VITALS: BP 101/52
[2019-09-13] MEDS: ATORVASTATIN CALCIUM 40MG TABLET PO SCH (20:56)
[2019-09-14] VITALS: BP 104/69
[2019-09-14] MEDS: IPRATROPIUM/ALBUTEROL 0.5-3(2.5)MG/3ML NEB HHN SCH ×4 (02:35→21:22)
[2019-09-14 04:00] VITALS: BP 113/64
[2019-09-14] MEDS: BLOOD SUGAR DIAGNOSTIC STRIP TEST SCH ×4 (05:51→20:50)
[2019-09-14] MEDS: SILDENAFIL CITRATE 20MG TABLET PO SCH ×3 (06:08→21:13)
[2019-09-14] MEDS: CORLANOR 5 MG PO SCH ×2 (06:08→17:32)
[2019-09-14] MEDS: INSULIN LISPRO 100 UNITS/ML SUBCUT SCH ×4 (06:35→20:50)
[2019-09-14 07:12] LABS: BASOPHILS % 0.9 % (0.0-2.0); EOSINOPHILS % 3.8 % (0.0-5.0); HEMATOCRIT. 33.8 % (36.0-48.0); HEMOGLOBIN. 10.8 g/dL (12.0-16.0); LYMPHOCYTES % 15.9 % (20.0-50.0); MEAN CORPUSCULAR HEMOGLOBIN 29.1 pg (28.0-32.0); MEAN CORPUSCULAR VOLUME 90.9 fL (81.0-99.0); MEAN PLATELET VOLUME 9.7 fl (7.4-10.4); MONOCYTES % 12.5 % (2.0-8.0); NEUTROPHILS % 66.9 % (40.0-76.0); PLATELET 138 x1000/uL (130-400); RED BLOOD CELL COUNT 3.72 mill/uL (4.2-5.4); RED CELL DISTRIBUTION WIDTH 17.5 % (11.6-14.6)
[2019-09-14 08:00] VITALS: BP 95/49
[2019-09-14 08:10] LABS: CHLORIDE 106 mEq/L (98-107)
[2019-09-14] MEDS: ASPIRIN 81MG EC TABLET PO SCH (09:00)
[2019-09-14] MEDS: CARVEDILOL 6.25 MG TABLET PO SCH ×2 (09:00→21:00)
[2019-09-14] MEDS: FUROSEMIDE 40MG TABLET PO SCH ×2 (09:01→17:32)
[2019-09-14] MEDS: SACUBITRIL/VALSARTAN 24/26 TAB PO SCH ×2 (09:04→21:00)
[2019-09-14 12:00] VITALS: BP 91/36
[2019-09-14 16:00] VITALS: BP 97/25
[2019-09-14 20:00] VITALS: BP 102/45
[2019-09-14] MEDS: ATORVASTATIN CALCIUM 40MG TABLET PO SCH (21:29)
[2019-09-15] VITALS: BP 101/45
[2019-09-15] MEDS: IPRATROPIUM/ALBUTEROL 0.5-3(2.5)MG/3ML NEB HHN SCH ×2 (00:43→09:04)
[2019-09-15 04:00] VITALS: BP 115/73
[2019-09-15] MEDS: BLOOD SUGAR DIAGNOSTIC STRIP TEST SCH ×2 (05:59→11:45)
[2019-09-15] MEDS: SILDENAFIL CITRATE 20MG TABLET PO SCH (06:02)
[2019-09-15] MEDS: CORLANOR 5 MG PO SCH (06:02)
[2019-09-15] MEDS: INSULIN LISPRO 100 UNITS/ML SUBCUT SCH ×2 (06:30→12:15)
[2019-09-15 07:11] LABS: HEMATOCRIT 30.3 % (36.0-48.0); HEMOGLOBIN 9.8 g/dL (12.0-16.0); MEAN CORPUSCULAR HEMOGLOBIN 29.4 pg (28.0-32.0); MEAN CORPUSCULAR VOLUME 90.4 fL (81.0-99.0); PLATELET 138 x1000/uL (130-400); RED BLOOD CELL COUNT 3.35 mill/uL (4.2-5.4); RED CELL DISTRIBUTION WIDTH 17.7 % (11.6-14.6)
[2019-09-15 07:50] LABS: CHLORIDE 106 mEq/L (98-107)
[2019-09-15 08:00] VITALS: BP 97/47
[2019-09-15] MEDS: SACUBITRIL/VALSARTAN 24/26 TAB PO SCH (08:37)
[2019-09-15] MEDS: CARVEDILOL 6.25 MG TABLET PO SCH (08:37)
[2019-09-15] MEDS: ASPIRIN 81MG EC TABLET PO SCH (08:48)
[2019-09-15] MEDS: FUROSEMIDE 40MG TABLET PO SCH (08:48)
[2019-09-15 10:24] VITALS: BP 97/50
== END 2019-09-15 13:44 | disposition home or self-care (01) | DRG 166 ==
LOC: ER 22:15 → 3WST 23:09 → ENRESERV 09-04 07:59 → 5WST 09-08 16:05
PROVIDERS: ADMIT Internal Medicine; ATTEND Internal Medicine
PROC: 5A09357 Assistance with Respiratory Ventilation, Less than 24 Consecutive Hours, Continuous Positive Airway Pressure (ICD-10-PCS; 2019-09-03)
PROC: 5A09357 Assistance with Respiratory Ventilation, Less than 24 Consecutive Hours, Continuous Positive Airway Pressure (ICD-10-PCS; 2019-09-04)
PROC: 5A09357 Assistance with Respiratory Ventilation, Less than 24 Consecutive Hours, Continuous Positive Airway Pressure (ICD-10-PCS; 2019-09-05)
PROC: 4B02XTZ Measurement of Cardiac Defibrillator, External Approach (ICD-10-PCS; 2019-09-05)
PROC: 5A09357 Assistance with Respiratory Ventilation, Less than 24 Consecutive Hours, Continuous Positive Airway Pressure (ICD-10-PCS; 2019-09-06)
PROC: 0JB70ZZ Excision of Back Subcutaneous Tissue and Fascia, Open Approach (ICD-10-PCS; principal; 2019-09-07)
PROC: 5A09357 Assistance with Respiratory Ventilation, Less than 24 Consecutive Hours, Continuous Positive Airway Pressure (ICD-10-PCS; 2019-09-07)
PROC: 5A09357 Assistance with Respiratory Ventilation, Less than 24 Consecutive Hours, Continuous Positive Airway Pressure (ICD-10-PCS; 2019-09-08)
PROC: 5A09357 Assistance with Respiratory Ventilation, Less than 24 Consecutive Hours, Continuous Positive Airway Pressure (ICD-10-PCS; 2019-09-09)
PROC: 5A09357 Assistance with Respiratory Ventilation, Less than 24 Consecutive Hours, Continuous Positive Airway Pressure (ICD-10-PCS; 2019-09-10)
PROC: 5A09357 Assistance with Respiratory Ventilation, Less than 24 Consecutive Hours, Continuous Positive Airway Pressure (ICD-10-PCS; 2019-09-11)
PROC: 5A09357 Assistance with Respiratory Ventilation, Less than 24 Consecutive Hours, Continuous Positive Airway Pressure (ICD-10-PCS; 2019-09-13)
PROC: 5A09357 Assistance with Respiratory Ventilation, Less than 24 Consecutive Hours, Continuous Positive Airway Pressure (ICD-10-PCS; 2019-09-14)
PROC: 5A09357 Assistance with Respiratory Ventilation, Less than 24 Consecutive Hours, Continuous Positive Airway Pressure (ICD-10-PCS; 2019-09-15)
DX: J84.9 Interstitial pulmonary disease, unspecified (principal); J96.00 Acute respiratory failure, unspecified whether with hypoxia or hypercapnia; I50.23 Acute on chronic systolic (congestive) heart failure; L02.212 Cutaneous abscess of back [any part, except buttock and flank]; Z68.43 Body mass index [BMI] 50.0-59.9, adult; C81.90 Hodgkin lymphoma, unspecified, unspecified site; E46 Unspecified protein-calorie malnutrition; I42.9 Cardiomyopathy, unspecified; I11.0 Hypertensive heart disease with heart failure; I25.10 Atherosclerotic heart disease of native coronary artery without angina pectoris; E11.9 Type 2 diabetes mellitus without complications; J44.9 Chronic obstructive pulmonary disease, unspecified; E87.6 Hypokalemia; E78.5 Hyperlipidemia, unspecified; G47.33 Obstructive sleep apnea (adult) (pediatric); E66.01 Morbid (severe) obesity due to excess calories; I27.21 Secondary pulmonary arterial hypertension; Z53.20 Procedure and treatment not carried out because of patient's decision for unspecified reasons; Z95.810 Presence of automatic (implantable) cardiac defibrillator; Z85.72 Personal history of non-Hodgkin lymphomas; Z95.5 Presence of coronary angioplasty implant and graft; Z92.21 Personal history of antineoplastic chemotherapy; Z85.42 Personal history of malignant neoplasm of other parts of uterus; Z79.4 Long term (current) use of insulin; Z79.899 Other long term (current) drug therapy; Z87.891 Personal history of nicotine dependence; Z90.710 Acquired absence of both cervix and uterus; Z71.89 Other specified counseling
CPT/HCPCS: 36415; 36600; 71045; 80048; 80053; 80061; 82375; 82805; 82962; 83605; 83735; 83880; 84134; 84439; 84443; 84484; 85025; 85027; 85379; 87804; 93005; 93306; 93970; 94618; 94640; 94660; 96365; 96372; 96375; 96376; 97162; 99291; J1650; J1815; J1940; J1956; J2270; J3475; J3490; A4315

== ENCOUNTER 2019-11-04 12:30 | Inpatient (IN) | payer MEDICARE, MEDICAID ==
[~2019-11-04] VITALS: Ht 162.6 cm; Wt 146.5 kg
[2019-11-04] MEDS ORDERED: SODIUM CHLORIDE 0.9% 1000ML BAG (SEPSIS BOLUS) IV ONE (13:00)
[2019-11-04 14:06] LABS: BASOPHILS % 0.2 % (0.0-2.0); EOSINOPHILS % 2.9 % (0.0-5.0); HEMATOCRIT. 30.8 % (36.0-48.0); HEMOGLOBIN. 10.1 g/dL (12.0-16.0); LYMPHOCYTES % 11.2 % (20.0-50.0); MEAN CORPUSCULAR HEMOGLOBIN 29.6 pg (28.0-32.0); MEAN CORPUSCULAR VOLUME 90.1 fL (81.0-99.0); MONOCYTES % 8.9 % (2.0-8.0); NEUTROPHILS % 76.8 % (40.0-76.0); PLATELET 100 x1000/uL (130-400); RED BLOOD CELL COUNT 3.42 mill/uL (4.2-5.4)
[2019-11-04 14:11] LABS: CHLORIDE 108 mEq/L (98-107)
[2019-11-04 14:14] LABS: PROTHROMBIN TIME 10.7 sec (9.6-11.0)
[2019-11-04 15:24] LABS: CLARITY URINE CLEAR (CLEAR); COLOR URINE YELLOW (YELLOW); KETONES URINE TRACE (NEGATIVE); LEUKOCYTE ESTERASE URINE NEGATIVE (NEGATIVE); NITRITE URINE NEGATIVE (NEGATIVE); OCCULT BLOOD URINE NEGATIVE (NEGATIVE); PROTEIN URINE NEGATIVE (NEGATIVE); SPECIFIC GRAVITY URINE 1.023 (1.005-1.030)
[2019-11-04] MEDS ORDERED: VANCOMYCIN 1 G PREMIX 200 ML IV ONE (15:45)
[2019-11-04] MEDS ORDERED: PIPERACILLIN/TAZ 3.375G PREMIX 50 ML IV ONE (15:45)
[2019-11-04] MEDS ORDERED: HYDROCODONE/ACETAMINOPHEN 5/325MG TABLET PO PRN (21:00)
[2019-11-04] MEDS ORDERED: LORAZEPAM 0.5MG TABLET PO PRN (21:00)
[2019-11-04] MEDS ORDERED: ONDANSETRON HCL 4MG/2ML INJ IV PRN (21:00)
[2019-11-04] MEDS ORDERED: IPRATROPIUM/ALBUTEROL 0.5-3(2.5)MG/3ML NEB HHN PRN (21:00)
[2019-11-04] MEDS ORDERED: GUAIFENESIN 200MG/10ML SUGAR FREE UDC PO PRN (21:00)
[2019-11-04] MEDS ORDERED: ACETAMINOPHEN 325MG TABLET PO PRN (21:00)
[2019-11-04 21:15] VITALS: BP 100/58
[2019-11-04 21:30] VITALS: BP 100/58
[2019-11-04] MEDS ORDERED: INFLUENZA VIRUS VACCINE(AFLURIA) 0.5ML SYR IM ONE (23:15)
[2019-11-05] VITALS: BP 101/60
[2019-11-05] MEDS ORDERED: PREG50CA PO (00:39)
[2019-11-05] MEDS ORDERED: LEVVL SQ (00:39)
[2019-11-05] MEDS ORDERED: INSU100V40 SUBCUT (00:39)
[2019-11-05] MEDS ORDERED: FURO-151 PO (00:39)
[2019-11-05 04:00] VITALS: BP 101/42
[2019-11-05] MEDS ORDERED: INFLUENZA VIRUS VACCINE(AFLURIA) 0.5ML SYR IM ONE (06:00)
[2019-11-05 08:00] VITALS: BP 97/46
[2019-11-05 10:06] LABS: BASOPHILS % 0.2 % (0.0-2.0); HEMATOCRIT. 29.3 % (36.0-48.0); HEMOGLOBIN. 9.6 g/dL (12.0-16.0); LYMPHOCYTES % 12.8 % (20.0-50.0); MEAN CORPUSCULAR HEMOGLOBIN 29.9 pg (28.0-32.0); MEAN CORPUSCULAR VOLUME 91.1 fL (81.0-99.0); MEAN PLATELET VOLUME 9.8 fl (7.4-10.4); MONOCYTES % 6.1 % (2.0-8.0); NEUTROPHILS % 76.9 % (40.0-76.0); PLATELET 118 x1000/uL (130-400); RED BLOOD CELL COUNT 3.22 mill/uL (4.2-5.4); RED CELL DISTRIBUTION WIDTH 16.7 % (11.6-14.6)
[2019-11-05 10:10] LABS: CHLORIDE 111 mEq/L (98-107)
[2019-11-05 12:00] VITALS: BP 104/59
[2019-11-05] MEDS ORDERED: NON FORMULARY PATIENT HOME MED XX SCH ×3 (12:15)
[2019-11-05] MEDS ORDERED: DEXTROSE 50% WATER 50ML SYRINGE IV PRN (12:15)
[2019-11-05] MEDS: POTASSIUM CHLORIDE 20MEQ TABLET SR PO SCH (13:49)
[2019-11-05] MEDS: ASPIRIN 81MG EC TABLET PO SCH (13:49)
[2019-11-05] MEDS: ENOXAPARIN 40MG/0.4ML SYR SUBCUT SCH ×2 (13:50→20:43)
[2019-11-05] MEDS: NYSTATIN POWDER 15GM TOP SCH ×2 (13:51→17:39)
[2019-11-05] MEDS: INSULIN GLARGINE UD 100 UNITS/ML SYR SUBCUT SCH ×2 (13:52→22:13)
[2019-11-05 16:00] VITALS: BP 107/44
[2019-11-05] MEDS: BLOOD SUGAR DIAGNOSTIC STRIP TEST SCH ×2 (17:16→20:23)
[2019-11-05] MEDS: MONTELUKAST SODIUM 10MG TABLET PO SCH (17:37)
[2019-11-05] MEDS: PREGABALIN 50 MG CAPSULE PO SCH (17:37)
[2019-11-05] MEDS: ALLOPURINOL 100 MG TABLET PO SCH (17:37)
[2019-11-05] MEDS: FUROSEMIDE 40MG/4ML VIAL IVP SCH (17:37)
[2019-11-05] MEDS: INSULIN LISPRO 100 UNITS/ML SUBCUT SCH ×2 (17:39→20:45)
[2019-11-05 20:00] VITALS: BP 128/65
[2019-11-05] MEDS: ATORVASTATIN CALCIUM 40MG TABLET PO SCH (20:42)
[2019-11-05] MEDS: CARVEDILOL 6.25 MG TABLET PO SCH (20:42)
[2019-11-06] VITALS: BP 105/81
[2019-11-06] MEDS: ALBUTEROL (0.083%) 2.5MG/3ML NEB HHN SCH ×5 (01:45→21:35)
[2019-11-06] MEDS: IPRATROPIUM BROMIDE (0.02%) 0.5MG/2.5ML NEB HHN SCH ×4 (02:59→21:35)
[2019-11-06 04:00] VITALS: BP 117/60
[2019-11-06] MEDS: BLOOD SUGAR DIAGNOSTIC STRIP TEST SCH ×4 (05:52→21:35)
[2019-11-06 05:55] LABS: BASOPHILS % 0.2 % (0.0-2.0); EOSINOPHILS % 4.2 % (0.0-5.0); HEMATOCRIT. 26.4 % (36.0-48.0); HEMOGLOBIN. 8.7 g/dL (12.0-16.0); MEAN CORPUSCULAR HEMOGLOBIN 30.1 pg (28.0-32.0); MEAN CORPUSCULAR VOLUME 90.8 fL (81.0-99.0); MEAN PLATELET VOLUME 9.2 fl (7.4-10.4); MONOCYTES % 8.8 % (2.0-8.0); NEUTROPHILS % 64.8 % (40.0-76.0); PLATELET 126 x1000/uL (130-400); RED CELL DISTRIBUTION WIDTH 16.5 % (11.6-14.6)
[2019-11-06] MEDS: INSULIN LISPRO 100 UNITS/ML SUBCUT SCH ×4 (06:15→21:00)
[2019-11-06] MEDS: FUROSEMIDE 40MG/4ML VIAL IVP SCH ×2 (06:19→17:15)
[2019-11-06 07:53] LABS: CHLORIDE 109 mEq/L (98-107)
[2019-11-06 08:00] VITALS: BP 92/53
[2019-11-06] MEDS: BUDESONIDE 0.5MG/2ML NEB HHN SCH ×2 (08:14→21:34)
[2019-11-06] MEDS: CITALOPRAM HYDROBROMIDE 10MG TABLET PO SCH (08:43)
[2019-11-06] MEDS: PREGABALIN 50 MG CAPSULE PO SCH ×2 (08:43→17:58)
[2019-11-06] MEDS: ASPIRIN 81MG EC TABLET PO SCH (08:44)
[2019-11-06] MEDS: ALLOPURINOL 100 MG TABLET PO SCH ×2 (08:44→17:58)
[2019-11-06] MEDS: ENOXAPARIN 40MG/0.4ML SYR SUBCUT SCH ×2 (08:44→21:43)
[2019-11-06] MEDS: NYSTATIN POWDER 15GM TOP SCH ×3 (08:45→17:59)
[2019-11-06] MEDS: CARVEDILOL 6.25 MG TABLET PO SCH ×2 (08:46→21:00)
[2019-11-06] MEDS: POTASSIUM CHLORIDE 20MEQ TABLET SR PO SCH (08:46)
[2019-11-06] MEDS: INSULIN GLARGINE UD 100 UNITS/ML SYR SUBCUT SCH ×2 (10:33→21:44)
[2019-11-06 12:00] VITALS: BP 108/37
[2019-11-06] MEDS ORDERED: SODIUM POLYSTYRENE SULFONATE 15 G/60 ML BOT PO SCH (14:00)
[2019-11-06 16:00] VITALS: BP 98/59
[2019-11-06] MEDS: MONTELUKAST SODIUM 10MG TABLET PO SCH (17:58)
[2019-11-06 20:00] VITALS: BP 96/41
[2019-11-06] MEDS: ATORVASTATIN CALCIUM 40MG TABLET PO SCH ×2 (21:00→21:43)
[2019-11-07] VITALS: BP 96/50
[2019-11-07] MEDS: IPRATROPIUM BROMIDE (0.02%) 0.5MG/2.5ML NEB HHN SCH ×4 (03:04→21:59)
[2019-11-07] MEDS: ALBUTEROL (0.083%) 2.5MG/3ML NEB HHN SCH ×4 (03:04→21:50)
[2019-11-07 04:00] VITALS: BP 94/45
[2019-11-07] MEDS: INSULIN LISPRO 100 UNITS/ML SUBCUT SCH ×4 (06:15→20:36)
[2019-11-07] MEDS: BLOOD SUGAR DIAGNOSTIC STRIP TEST SCH ×4 (06:15→20:36)
[2019-11-07 06:36] LABS: BASOPHILS % 0.1 % (0.0-2.0); EOSINOPHILS % 4.3 % (0.0-5.0); HEMATOCRIT. 24.9 % (36.0-48.0); HEMOGLOBIN. 8.3 g/dL (12.0-16.0); LYMPHOCYTES % 29.6 % (20.0-50.0); MEAN CORPUSCULAR HEMOGLOBIN 29.8 pg (28.0-32.0); MEAN CORPUSCULAR VOLUME 89.9 fL (81.0-99.0); MEAN PLATELET VOLUME 8.6 fl (7.4-10.4); MONOCYTES % 13.5 % (2.0-8.0); NEUTROPHILS % 52.5 % (40.0-76.0); PLATELET 146 x1000/uL (130-400); RED BLOOD CELL COUNT 2.77 mill/uL (4.2-5.4); RED CELL DISTRIBUTION WIDTH 16.3 % (11.6-14.6)
[2019-11-07 06:43] LABS: CHLORIDE 107 mEq/L (98-107)
[2019-11-07 08:00] VITALS: BP 108/62
[2019-11-07] MEDS: BUDESONIDE 0.5MG/2ML NEB HHN SCH ×2 (08:26→21:50)
[2019-11-07] MEDS: CARVEDILOL 6.25 MG TABLET PO SCH ×2 (09:00→21:00)
[2019-11-07] MEDS: ALLOPURINOL 100 MG TABLET PO SCH ×2 (09:21→17:07)
[2019-11-07] MEDS: PREGABALIN 50 MG CAPSULE PO SCH ×2 (09:21→17:07)
[2019-11-07] MEDS: ASPIRIN 81MG EC TABLET PO SCH (09:21)
[2019-11-07] MEDS: CITALOPRAM HYDROBROMIDE 10MG TABLET PO SCH (09:22)
[2019-11-07] MEDS: FUROSEMIDE 40MG/4ML VIAL IVP SCH ×2 (09:23→17:08)
[2019-11-07] MEDS: ENOXAPARIN 40MG/0.4ML SYR SUBCUT SCH ×2 (09:24→21:24)
[2019-11-07] MEDS: NYSTATIN POWDER 15GM TOP SCH ×3 (09:24→17:08)
[2019-11-07] MEDS: INSULIN GLARGINE UD 100 UNITS/ML SYR SUBCUT SCH ×2 (09:25→21:37)
[2019-11-07 12:00] VITALS: BP 114/76
[2019-11-07 12:14] LABS: TOTAL IRON BINDING CAPACITY 223 ug/dL (250-450)
[2019-11-07 16:00] VITALS: BP 99/60
[2019-11-07] MEDS: MONTELUKAST SODIUM 10MG TABLET PO SCH (17:06)
[2019-11-07 18:54] LABS: T4 FREE 0.83 ng/dL (0.76-1.46)
[2019-11-07 19:04] LABS: FOLIC ACID (FOLATE) SERUM >20 ng/mL ng/mL (>5.38)
[2019-11-07 19:06] LABS: CLARITY URINE TURBID (CLEAR); COLOR URINE RED (YELLOW); KETONES URINE 2+ (NEGATIVE); LEUKOCYTE ESTERASE URINE 3+ (NEGATIVE); NITRITE URINE POSITIVE (NEGATIVE); OCCULT BLOOD URINE 3+ (NEGATIVE); PROTEIN URINE 2+ (NEGATIVE)
[2019-11-07 19:16] LABS: VITAMIN B12 SERUM 390 pg/mL (211-911)
[2019-11-07 20:00] VITALS: BP 106/66
[2019-11-07] MEDS: ATORVASTATIN CALCIUM 40MG TABLET PO SCH (21:00)
[2019-11-08] VITALS: BP 98/60
[2019-11-08] MEDS: ALBUTEROL (0.083%) 2.5MG/3ML NEB HHN SCH ×4 (01:11→20:50)
[2019-11-08] MEDS: IPRATROPIUM BROMIDE (0.02%) 0.5MG/2.5ML NEB HHN SCH ×4 (01:11→20:50)
[2019-11-08 04:00] VITALS: BP 112/65
[2019-11-08] MEDS: FUROSEMIDE 40MG/4ML VIAL IVP SCH ×3 (06:18→22:03)
[2019-11-08] MEDS: INSULIN LISPRO 100 UNITS/ML SUBCUT SCH ×4 (06:18→21:00)
[2019-11-08] MEDS: BLOOD SUGAR DIAGNOSTIC STRIP TEST SCH ×4 (06:18→21:00)
[2019-11-08 07:05] LABS: HEMATOCRIT. 25.3 % (36.0-48.0); HEMOGLOBIN. 8.4 g/dL (12.0-16.0); MEAN CORPUSCULAR HEMOGLOBIN 29.8 pg (28.0-32.0); MEAN CORPUSCULAR VOLUME 89.4 fL (81.0-99.0); MEAN PLATELET VOLUME 9.2 fl (7.4-10.4); PLATELET 174 x1000/uL (130-400); RED BLOOD CELL COUNT 2.83 mill/uL (4.2-5.4); RED CELL DISTRIBUTION WIDTH 16.1 % (11.6-14.6)
[2019-11-08 07:11] LABS: CHLORIDE 109 mEq/L (98-107)
[2019-11-08 07:19] LABS: LDL CHOLESTEROL 63 mg/dL (5-100)
[2019-11-08 07:20] LABS: CREATINE KINASE 25 IU/L (26-192)
[2019-11-08 07:23] LABS: HDL CHOLESTEROL 45 mg/dL (40-59)
[2019-11-08] MEDS: BUDESONIDE 0.5MG/2ML NEB HHN SCH (08:15)
[2019-11-08 08:46] VITALS: BP 107/61
[2019-11-08] MEDS: NYSTATIN POWDER 15GM TOP SCH ×3 (09:00→17:00)
[2019-11-08] MEDS: ENOXAPARIN 40MG/0.4ML SYR SUBCUT SCH ×2 (09:00→22:07)
[2019-11-08] MEDS: CARVEDILOL 6.25 MG TABLET PO SCH ×2 (09:00→22:06)
[2019-11-08] MEDS: CITALOPRAM HYDROBROMIDE 10MG TABLET PO SCH (09:59)
[2019-11-08] MEDS: ALLOPURINOL 100 MG TABLET PO SCH ×2 (09:59→17:09)
[2019-11-08] MEDS: ASPIRIN 81MG EC TABLET PO SCH (09:59)
[2019-11-08] MEDS: PREGABALIN 50 MG CAPSULE PO SCH ×2 (09:59→17:09)
[2019-11-08] MEDS: INSULIN GLARGINE UD 100 UNITS/ML SYR SUBCUT SCH ×2 (10:20→22:25)
[2019-11-08 11:41] VITALS: BP 106/58
[2019-11-08 16:23] VITALS: BP 111/67
[2019-11-08] MEDS: MONTELUKAST SODIUM 10MG TABLET PO SCH (17:09)
[2019-11-08 19:23] LABS: PLATELET ESTIMATE NORMAL
[2019-11-08 20:00] VITALS: BP 110/60
[2019-11-08] MEDS: ATORVASTATIN CALCIUM 40MG TABLET PO SCH (22:03)
[2019-11-09] VITALS: BP 107/53
[2019-11-09] MEDS: IPRATROPIUM BROMIDE (0.02%) 0.5MG/2.5ML NEB HHN SCH ×3 (01:45→14:05)
[2019-11-09 04:00] VITALS: BP 124/58
[2019-11-09] MEDS: BLOOD SUGAR DIAGNOSTIC STRIP TEST SCH ×3 (06:45→17:36)
[2019-11-09] MEDS: INSULIN LISPRO 100 UNITS/ML SUBCUT SCH ×3 (07:15→17:15)
[2019-11-09] MEDS: FUROSEMIDE 40MG/4ML VIAL IVP SCH (07:15)
[2019-11-09 08:00] VITALS: BP 98/52
[2019-11-09] MEDS: CARVEDILOL 6.25 MG TABLET PO SCH (08:20)
[2019-11-09] MEDS: ASPIRIN 81MG EC TABLET PO SCH (08:22)
[2019-11-09] MEDS: PREGABALIN 50 MG CAPSULE PO SCH ×2 (08:22→17:36)
[2019-11-09] MEDS: CITALOPRAM HYDROBROMIDE 10MG TABLET PO SCH (08:22)
[2019-11-09] MEDS: ALLOPURINOL 100 MG TABLET PO SCH ×2 (08:22→17:36)
[2019-11-09] MEDS: NYSTATIN POWDER 15GM TOP SCH ×3 (08:23→17:37)
[2019-11-09] MEDS: ENOXAPARIN 40MG/0.4ML SYR SUBCUT SCH (08:23)
[2019-11-09] MEDS ORDERED: CYANOCOBALAMIN 1000MCG/ML VIAL IM SCH (09:00)
[2019-11-09] MEDS: INSULIN GLARGINE UD 100 UNITS/ML SYR SUBCUT SCH (09:20)
[2019-11-09] MEDS: ALBUTEROL (0.083%) 2.5MG/3ML NEB HHN SCH ×2 (09:25→14:05)
[2019-11-09 12:00] VITALS: BP 107/51
[2019-11-09 16:00] VITALS: BP 105/44
[2019-11-09] MEDS ORDERED: FUROSEMIDE 40MG TABLET PO SCH (17:15)
[2019-11-09] MEDS: MONTELUKAST SODIUM 10MG TABLET PO SCH (17:36)
[2019-11-09 18:22] VITALS: BP 105/44
== END 2019-11-09 18:49 | DRG 291 ==
LOC: ER 12:53 → EDBEDREQSVC 16:32 → 5WST 19:01 → EDBEDREQ 19:03 → EDBEDREQTM 19:03 → ENRESERV 19:54 → 5WST 11-06 12:23
PROVIDERS: ADMIT Internal Medicine; ATTEND Internal Medicine
PROC: 5A09357 Assistance with Respiratory Ventilation, Less than 24 Consecutive Hours, Continuous Positive Airway Pressure (ICD-10-PCS; principal; 2019-11-05)
PROC: 5A09357 Assistance with Respiratory Ventilation, Less than 24 Consecutive Hours, Continuous Positive Airway Pressure (ICD-10-PCS; 2019-11-06)
PROC: 5A09357 Assistance with Respiratory Ventilation, Less than 24 Consecutive Hours, Continuous Positive Airway Pressure (ICD-10-PCS; 2019-11-08)
PROC: 5A09357 Assistance with Respiratory Ventilation, Less than 24 Consecutive Hours, Continuous Positive Airway Pressure (ICD-10-PCS; 2019-11-09)
DX: I11.0 Hypertensive heart disease with heart failure (principal); G82.50 Quadriplegia, unspecified; R57.0 Cardiogenic shock; Z68.43 Body mass index [BMI] 50.0-59.9, adult; D61.818 Other pancytopenia; I50.23 Acute on chronic systolic (congestive) heart failure; I42.0 Dilated cardiomyopathy; R62.7 Adult failure to thrive; I25.10 Atherosclerotic heart disease of native coronary artery without angina pectoris; E78.5 Hyperlipidemia, unspecified; E66.01 Morbid (severe) obesity due to excess calories; J44.9 Chronic obstructive pulmonary disease, unspecified; I34.0 Nonrheumatic mitral (valve) insufficiency; G47.33 Obstructive sleep apnea (adult) (pediatric); E11.42 Type 2 diabetes mellitus with diabetic polyneuropathy; M47.816 Spondylosis without myelopathy or radiculopathy, lumbar region; M48.03 Spinal stenosis, cervicothoracic region; I27.20 Pulmonary hypertension, unspecified; E87.5 Hyperkalemia; R79.82 Elevated C-reactive protein (CRP); M10.9 Gout, unspecified; R53.81 Other malaise; E78.00 Pure hypercholesterolemia, unspecified; M75.01 Adhesive capsulitis of right shoulder; M47.817 Spondylosis without myelopathy or radiculopathy, lumbosacral region; M75.02 Adhesive capsulitis of left shoulder; E53.8 Deficiency of other specified B group vitamins; Z79.4 Long term (current) use of insulin; Z90.710 Acquired absence of both cervix and uterus; Z92.21 Personal history of antineoplastic chemotherapy; Z95.2 Presence of prosthetic heart valve; Z95.810 Presence of automatic (implantable) cardiac defibrillator; Z79.891 Long term (current) use of opiate analgesic; Z79.899 Other long term (current) drug therapy; Z83.3 Family history of diabetes mellitus; Z82.49 Family history of ischemic heart disease and other diseases of the circulatory system; Z87.891 Personal history of nicotine dependence; Z85.72 Personal history of non-Hodgkin lymphomas
CPT/HCPCS: 36415; 71045; 72128; 72131; 80048; 80053; 80061; 81003; 82270; 82550; 82607; 82728; 82746; 82962; 83036; 83540; 83550; 83605; 84145; 84439; 84443; 84481; 84484; 85025; 85044; 85651; 86141; 86256; 90686; 93005; 93306; 94640; 94660; 96361; 96365; 96368; 97110; 97162; 97166; 97530; 99285; J1650; J1815; J1940; J2543; J3370; J3420; J7030; J7626

== ENCOUNTER 2019-11-09 18:52 | Inpatient (IN) | payer MEDICARE, MEDICAID ==
[~2019-11-09] VITALS: Ht 162.6 cm; Wt 146.5 kg
[~2019-11-09 18:52] MED LIST changes: -HYDR-4001 MT; -INSU100I7 SQ; +INSU100V40 SUBCUT; +PREG50CA PO; -PREG75CA PO
[2019-11-09] MEDS ORDERED: LORAZEPAM 0.5MG TABLET PO PRN (19:45)
[2019-11-09] MEDS ORDERED: ONDANSETRON HCL 4MG/2ML INJ IV PRN (19:45)
[2019-11-09] MEDS ORDERED: DEXTROSE 50% WATER 50ML SYRINGE IV PRN (19:45)
[2019-11-09] MEDS ORDERED: GUAIFENESIN 200MG/10ML SUGAR FREE UDC PO PRN (19:45)
[2019-11-09] MEDS ORDERED: HYDROCODONE/ACETAMINOPHEN 5/325MG TABLET PO PRN (19:45)
[2019-11-09] MEDS ORDERED: IPRATROPIUM/ALBUTEROL 0.5-3(2.5)MG/3ML NEB HHN PRN (19:45)
[2019-11-09 20:00] VITALS: BP 104/61
[2019-11-09] MEDS: ATORVASTATIN CALCIUM 40MG TABLET PO SCH ×2 (21:00→21:58)
[2019-11-09] MEDS: INSULIN LISPRO 100 UNITS/ML SUBCUT SCH (21:00)
[2019-11-09] MEDS: BLOOD SUGAR DIAGNOSTIC STRIP TEST SCH (21:59)
[2019-11-09] MEDS: CARVEDILOL 6.25 MG TABLET PO SCH (21:59)
[2019-11-09] MEDS: ENOXAPARIN 40MG/0.4ML SYR SUBCUT SCH (22:00)
[2019-11-09] MEDS: INSULIN GLARGINE UD 100 UNITS/ML SYR SUBCUT SCH (23:24)
[2019-11-10 02:06] LABS: CLARITY URINE TURBID (CLEAR); COLOR URINE DK YELLOW (YELLOW); KETONES URINE NEGATIVE (NEGATIVE); LEUKOCYTE ESTERASE URINE 2+ (NEGATIVE); NITRITE URINE POSITIVE (NEGATIVE); OCCULT BLOOD URINE 3+ (NEGATIVE); PH URINE 5.5 (4.5-8.0); PROTEIN URINE 2+ (NEGATIVE); SPECIFIC GRAVITY URINE 1.013 (1.005-1.030)
[2019-11-10] MEDS: IPRATROPIUM BROMIDE (0.02%) 0.5MG/2.5ML NEB HHN SCH ×4 (02:20→22:00)
[2019-11-10] MEDS: ALBUTEROL (0.083%) 2.5MG/3ML NEB HHN SCH ×4 (02:20→22:00)
[2019-11-10] MEDS: BLOOD SUGAR DIAGNOSTIC STRIP TEST SCH ×4 (06:32→21:17)
[2019-11-10] MEDS: FUROSEMIDE 40MG TABLET PO SCH ×2 (06:33→17:38)
[2019-11-10] MEDS: INSULIN LISPRO 100 UNITS/ML SUBCUT SCH ×4 (06:33→21:00)
[2019-11-10 06:48] LABS: HEMATOCRIT. 26.6 % (36.0-48.0); HEMOGLOBIN. 8.8 g/dL (12.0-16.0); MEAN CORPUSCULAR HEMOGLOBIN 29.6 pg (28.0-32.0); MEAN CORPUSCULAR VOLUME 89.5 fL (81.0-99.0); MEAN PLATELET VOLUME 8.6 fl (7.4-10.4); PLATELET 219 x1000/uL (130-400); RED BLOOD CELL COUNT 2.97 mill/uL (4.2-5.4); RED CELL DISTRIBUTION WIDTH 15.7 % (11.6-14.6)
[2019-11-10 06:50] LABS: CHLORIDE 107 mEq/L (98-107)
[2019-11-10 08:29] VITALS: BP 120/56
[2019-11-10] MEDS ORDERED: PREGABALIN 50 MG CAPSULE PO SCH (09:00)
[2019-11-10] MEDS ORDERED: PREGABALIN 25MG CAPSULE PO SCH (09:00)
[2019-11-10] MEDS: CYANOCOBALAMIN 1000MCG/ML VIAL IM SCH (10:16)
[2019-11-10] MEDS: ALLOPURINOL 100 MG TABLET PO SCH ×2 (10:17→17:38)
[2019-11-10] MEDS: ASPIRIN 81MG EC TABLET PO SCH (10:17)
[2019-11-10] MEDS: PREGABALIN 50 MG CAPSULE PO SCH ×2 (10:17→17:38)
[2019-11-10] MEDS: CARVEDILOL 6.25 MG TABLET PO SCH ×2 (10:17→21:25)
[2019-11-10] MEDS: CITALOPRAM HYDROBROMIDE 10MG TABLET PO SCH (10:17)
[2019-11-10] MEDS: NYSTATIN POWDER 15GM TOP SCH ×3 (10:18→17:38)
[2019-11-10] MEDS: ENOXAPARIN 40MG/0.4ML SYR SUBCUT SCH ×2 (10:18→21:24)
[2019-11-10] MEDS: INSULIN GLARGINE UD 100 UNITS/ML SYR SUBCUT SCH ×2 (10:27→22:00)
[2019-11-10 11:47] LABS: PLATELET ESTIMATE NORMAL
[2019-11-10] MEDS ORDERED: DIPHENOXYLATE/ATROPINE 2.5/0.025MG TABLET PO ONE (13:30)
[2019-11-10] MEDS: MONTELUKAST SODIUM 10MG TABLET PO SCH (17:38)
[2019-11-10 20:00] VITALS: BP 126/58
[2019-11-10] MEDS: ATORVASTATIN CALCIUM 40MG TABLET PO SCH (21:25)
[2019-11-11] MEDS: IPRATROPIUM BROMIDE (0.02%) 0.5MG/2.5ML NEB HHN SCH ×3 (02:17→22:39)
[2019-11-11] MEDS: ALBUTEROL (0.083%) 2.5MG/3ML NEB HHN SCH ×4 (02:17→22:39)
[2019-11-11 06:39] LABS: CHLORIDE 104 mEq/L (98-107)
[2019-11-11 06:53] LABS: HEMATOCRIT. 26.4 % (36.0-48.0); HEMOGLOBIN. 8.9 g/dL (12.0-16.0); MEAN CORPUSCULAR HEMOGLOBIN 30.2 pg (28.0-32.0); MEAN CORPUSCULAR VOLUME 89.5 fL (81.0-99.0); MEAN PLATELET VOLUME 8.6 fl (7.4-10.4); PLATELET 235 x1000/uL (130-400); RED BLOOD CELL COUNT 2.95 mill/uL (4.2-5.4)
[2019-11-11] MEDS: INSULIN LISPRO 100 UNITS/ML SUBCUT SCH ×4 (07:31→22:30)
[2019-11-11 08:00] VITALS: BP 99/50
[2019-11-11] MEDS: CARVEDILOL 6.25 MG TABLET PO SCH ×2 (09:00→22:24)
[2019-11-11] MEDS: CITALOPRAM HYDROBROMIDE 10MG TABLET PO SCH (09:10)
[2019-11-11] MEDS: PREGABALIN 50 MG CAPSULE PO SCH ×2 (09:11→17:52)
[2019-11-11] MEDS: FUROSEMIDE 40MG TABLET PO SCH ×2 (09:11→17:52)
[2019-11-11] MEDS: ALLOPURINOL 100 MG TABLET PO SCH ×2 (09:11→17:52)
[2019-11-11] MEDS: ENOXAPARIN 40MG/0.4ML SYR SUBCUT SCH ×2 (09:11→22:26)
[2019-11-11] MEDS: ASPIRIN 81MG EC TABLET PO SCH (09:11)
[2019-11-11] MEDS: MULTIVITAMINS,THER W-MINERALS TABLET PO SCH (09:11)
[2019-11-11] MEDS: CYANOCOBALAMIN 1000MCG/ML VIAL IM SCH (09:11)
[2019-11-11] MEDS: NYSTATIN POWDER 15GM TOP SCH ×3 (09:12→17:52)
[2019-11-11] MEDS: INSULIN GLARGINE UD 100 UNITS/ML SYR SUBCUT SCH ×2 (10:54→22:39)
[2019-11-11] MEDS: BLOOD SUGAR DIAGNOSTIC STRIP TEST SCH ×3 (11:10→22:20)
[2019-11-11] MEDS: MONTELUKAST SODIUM 10MG TABLET PO SCH (17:52)
[2019-11-11 20:00] VITALS: BP 115/61
[2019-11-11] MEDS: ATORVASTATIN CALCIUM 40MG TABLET PO SCH (22:25)
[2019-11-12] MEDS: ALBUTEROL (0.083%) 2.5MG/3ML NEB HHN SCH ×3 (02:30→13:55)
[2019-11-12 06:47] LABS: CHLORIDE 103 mEq/L (98-107)
[2019-11-12 06:48] LABS: HEMATOCRIT. 27.5 % (36.0-48.0); MEAN CORPUSCULAR HEMOGLOBIN 29.3 pg (28.0-32.0); MEAN CORPUSCULAR VOLUME 89.7 fL (81.0-99.0); MEAN PLATELET VOLUME 8.6 fl (7.4-10.4); PLATELET 263 x1000/uL (130-400); RED BLOOD CELL COUNT 3.07 mill/uL (4.2-5.4); RED CELL DISTRIBUTION WIDTH 15.8 % (11.6-14.6)
[2019-11-12 06:55] LABS: PHOSPHORUS 3.5 mg/dL (2.5-4.9); TOTAL IRON BINDING CAPACITY 229 ug/dL (250-450)
[2019-11-12] MEDS: INSULIN LISPRO 100 UNITS/ML SUBCUT SCH ×4 (06:56→21:00)
[2019-11-12] MEDS: BLOOD SUGAR DIAGNOSTIC STRIP TEST SCH ×4 (06:56→21:27)
[2019-11-12] MEDS: FUROSEMIDE 40MG TABLET PO SCH ×2 (06:57→17:01)
[2019-11-12 07:09] LABS: FERRITIN 122 ng/mL (10-291)
[2019-11-12 07:29] LABS: FOLIC ACID (FOLATE) SERUM > 20.00 ng/mL (>5.38); VITAMIN B12 SERUM > 2000.0 pg/mL (211-911)
[2019-11-12] MEDS: IPRATROPIUM BROMIDE (0.02%) 0.5MG/2.5ML NEB HHN SCH ×3 (07:45→13:55)
[2019-11-12 08:00] VITALS: BP 98/45
[2019-11-12 08:45] LABS: ATYPICAL LYMPHOCYTES 2
[2019-11-12 08:46] LABS: PLATELET ESTIMATE NORMAL
[2019-11-12] MEDS: CARVEDILOL 6.25 MG TABLET PO SCH ×2 (09:00→21:00)
[2019-11-12] MEDS: CYANOCOBALAMIN 1000MCG/ML VIAL IM SCH (09:09)
[2019-11-12] MEDS: ENOXAPARIN 40MG/0.4ML SYR SUBCUT SCH ×2 (09:09→21:25)
[2019-11-12] MEDS: CITALOPRAM HYDROBROMIDE 10MG TABLET PO SCH (09:10)
[2019-11-12] MEDS: PREGABALIN 50 MG CAPSULE PO SCH ×2 (09:10→17:34)
[2019-11-12] MEDS: NYSTATIN POWDER 15GM TOP SCH ×3 (09:10→17:34)
[2019-11-12] MEDS: MULTIVITAMINS,THER W-MINERALS TABLET PO SCH (09:10)
[2019-11-12] MEDS: ASPIRIN 81MG EC TABLET PO SCH (09:10)
[2019-11-12] MEDS: ALLOPURINOL 100 MG TABLET PO SCH ×2 (09:10→17:34)
[2019-11-12 10:25] LABS: ATYPICAL LYMPHOCYTES 1
[2019-11-12 10:26] LABS: PLATELET ESTIMATE NORMAL
[2019-11-12] MEDS: INSULIN GLARGINE UD 100 UNITS/ML SYR SUBCUT SCH ×2 (10:58→21:27)
[2019-11-12] MEDS: CLINDAMYCIN HCL 150MG CAPSULE PO SCH ×3 (11:29→23:05)
[2019-11-12] MEDS: MONTELUKAST SODIUM 10MG TABLET PO SCH (17:34)
[2019-11-12 18:34] LABS: CLARITY URINE CLOUDY (CLEAR); COLOR URINE YELLOW (YELLOW); KETONES URINE NEGATIVE (NEGATIVE); LEUKOCYTE ESTERASE URINE 1+ (NEGATIVE); NITRITE URINE NEGATIVE (NEGATIVE); OCCULT BLOOD URINE 3+ (NEGATIVE); PH URINE 5.5 (4.5-8.0); PROTEIN URINE NEGATIVE (NEGATIVE); SPECIFIC GRAVITY URINE 1.008 (1.005-1.030)
[2019-11-12] MEDS: ATORVASTATIN CALCIUM 40MG TABLET PO SCH (21:25)
[2019-11-12 22:42] VITALS: BP 99/56
[2019-11-13] MEDS: CLINDAMYCIN HCL 150MG CAPSULE PO SCH ×3 (05:29→17:40)
[2019-11-13] MEDS: BLOOD SUGAR DIAGNOSTIC STRIP TEST SCH ×4 (06:03→21:25)
[2019-11-13] MEDS: FUROSEMIDE 40MG TABLET PO SCH ×2 (06:03→17:41)
[2019-11-13] MEDS: INSULIN LISPRO 100 UNITS/ML SUBCUT SCH ×4 (06:52→21:00)
[2019-11-13] MEDS: ALBUTEROL (0.083%) 2.5MG/3ML NEB HHN SCH ×2 (07:45→19:58)
[2019-11-13 08:23] VITALS: BP 111/61
[2019-11-13] MEDS: CITALOPRAM HYDROBROMIDE 10MG TABLET PO SCH (08:51)
[2019-11-13] MEDS: ASPIRIN 81MG EC TABLET PO SCH (08:51)
[2019-11-13] MEDS: ALLOPURINOL 100 MG TABLET PO SCH ×2 (08:52→17:41)
[2019-11-13] MEDS: CARVEDILOL 6.25 MG TABLET PO SCH ×2 (08:52→21:00)
[2019-11-13] MEDS: MULTIVITAMINS,THER W-MINERALS TABLET PO SCH (08:52)
[2019-11-13] MEDS: PREGABALIN 50 MG CAPSULE PO SCH ×2 (08:52→17:40)
[2019-11-13] MEDS: ENOXAPARIN 40MG/0.4ML SYR SUBCUT SCH ×2 (08:52→21:26)
[2019-11-13] MEDS: NYSTATIN POWDER 15GM TOP SCH ×3 (08:52→17:41)
[2019-11-13] MEDS: CYANOCOBALAMIN 1000MCG/ML VIAL IM SCH (08:52)
[2019-11-13] MEDS: INSULIN GLARGINE UD 100 UNITS/ML SYR SUBCUT SCH ×2 (10:06→21:25)
[2019-11-13] MEDS: IPRATROPIUM BROMIDE (0.02%) 0.5MG/2.5ML NEB HHN SCH ×2 (12:00→19:57)
[2019-11-13] MEDS: MONTELUKAST SODIUM 10MG TABLET PO SCH (17:40)
[2019-11-13 20:00] VITALS: BP 97/62
[2019-11-13] MEDS: ATORVASTATIN CALCIUM 40MG TABLET PO SCH (21:25)
[2019-11-14] MEDS: IPRATROPIUM BROMIDE (0.02%) 0.5MG/2.5ML NEB HHN SCH ×3 (02:30→21:00)
[2019-11-14] MEDS: ALBUTEROL (0.083%) 2.5MG/3ML NEB HHN SCH ×3 (02:30→13:38)
[2019-11-14] MEDS: FUROSEMIDE 40MG TABLET PO SCH ×2 (06:11→16:21)
[2019-11-14] MEDS: INSULIN LISPRO 100 UNITS/ML SUBCUT SCH ×4 (06:12→20:48)
[2019-11-14] MEDS: BLOOD SUGAR DIAGNOSTIC STRIP TEST SCH ×4 (06:12→20:49)
[2019-11-14 06:42] LABS: CHLORIDE 100 mEq/L (98-107)
[2019-11-14 06:48] LABS: HEMATOCRIT. 27.4 % (36.0-48.0); HEMOGLOBIN. 9.1 g/dL (12.0-16.0); MEAN CORPUSCULAR HEMOGLOBIN 29.8 pg (28.0-32.0); MEAN CORPUSCULAR VOLUME 89.7 fL (81.0-99.0); MEAN PLATELET VOLUME 8.9 fl (7.4-10.4); PLATELET 254 x1000/uL (130-400); RED BLOOD CELL COUNT 3.05 mill/uL (4.2-5.4); RED CELL DISTRIBUTION WIDTH 15.9 % (11.6-14.6)
[2019-11-14 08:02] VITALS: BP 128/48
[2019-11-14] MEDS: ASPIRIN 81MG EC TABLET PO SCH (08:33)
[2019-11-14] MEDS: CITALOPRAM HYDROBROMIDE 10MG TABLET PO SCH (08:33)
[2019-11-14] MEDS: MULTIVITAMINS,THER W-MINERALS TABLET PO SCH (08:33)
[2019-11-14] MEDS: PREGABALIN 50 MG CAPSULE PO SCH ×2 (08:33→16:21)
[2019-11-14] MEDS: CYANOCOBALAMIN 1000MCG/ML VIAL IM SCH (08:33)
[2019-11-14] MEDS: CARVEDILOL 6.25 MG TABLET PO SCH ×2 (08:33→20:48)
[2019-11-14] MEDS: ALLOPURINOL 100 MG TABLET PO SCH ×2 (08:33→16:21)
[2019-11-14] MEDS: NYSTATIN POWDER 15GM TOP SCH ×3 (08:34→16:21)
[2019-11-14] MEDS: ENOXAPARIN 40MG/0.4ML SYR SUBCUT SCH ×2 (08:34→21:09)
[2019-11-14] MEDS: INSULIN GLARGINE UD 100 UNITS/ML SYR SUBCUT SCH ×2 (09:54→20:49)
[2019-11-14 11:45] LABS: PLATELET ESTIMATE NORMAL
[2019-11-14] MEDS: MONTELUKAST SODIUM 10MG TABLET PO SCH (16:21)
[2019-11-14 20:00] VITALS: BP 99/52
[2019-11-14] MEDS: ATORVASTATIN CALCIUM 40MG TABLET PO SCH (21:08)
[2019-11-14] MEDS: ACETAMINOPHEN 325MG TABLET PO PRN (21:09)
[2019-11-15] MEDS: IPRATROPIUM BROMIDE (0.02%) 0.5MG/2.5ML NEB HHN SCH ×4 (02:08→20:16)
[2019-11-15] MEDS: BLOOD SUGAR DIAGNOSTIC STRIP TEST SCH ×4 (06:04→21:51)
[2019-11-15] MEDS: FUROSEMIDE 40MG TABLET PO SCH ×3 (06:05→17:34)
[2019-11-15 06:09] LABS: 25-HYDROXY VITAMIN D3 28 ng/mL (.)
[2019-11-15] MEDS: CARVEDILOL 6.25 MG TABLET PO SCH ×2 (08:06→21:50)
[2019-11-15 08:27] VITALS: BP 104/64
[2019-11-15] MEDS: INSULIN LISPRO 100 UNITS/ML SUBCUT SCH ×4 (09:00→22:00)
[2019-11-15] MEDS: CYANOCOBALAMIN 1000MCG/ML VIAL IM SCH (09:25)
[2019-11-15] MEDS: CITALOPRAM HYDROBROMIDE 10MG TABLET PO SCH (09:26)
[2019-11-15] MEDS: ASPIRIN 81MG EC TABLET PO SCH (09:26)
[2019-11-15] MEDS: MULTIVITAMINS,THER W-MINERALS TABLET PO SCH (09:26)
[2019-11-15] MEDS: ALLOPURINOL 100 MG TABLET PO SCH ×2 (09:26→17:34)
[2019-11-15] MEDS: PREGABALIN 50 MG CAPSULE PO SCH ×2 (09:26→17:34)
[2019-11-15] MEDS: ENOXAPARIN 40MG/0.4ML SYR SUBCUT SCH ×2 (09:27→21:51)
[2019-11-15] MEDS: NYSTATIN POWDER 15GM TOP SCH ×3 (09:27→17:37)
[2019-11-15] MEDS: INSULIN GLARGINE UD 100 UNITS/ML SYR SUBCUT SCH ×2 (09:34→22:22)
[2019-11-15] MEDS: HYDROCODONE/ACETAMINOPHEN 5/325MG TABLET PO PRN (15:19)
[2019-11-15] MEDS: LIDOCAINE 5% PATCH TOP SCH (15:19)
[2019-11-15] MEDS: MONTELUKAST SODIUM 10MG TABLET PO SCH (17:34)
[2019-11-15] MEDS: ERGOCALCIFEROL 50000UNITS CAPSULE PO SCH (17:34)
[2019-11-15 20:00] VITALS: BP 126/80
[2019-11-15] MEDS: ALBUTEROL (0.083%) 2.5MG/3ML NEB HHN SCH (20:16)
[2019-11-15] MEDS: ATORVASTATIN CALCIUM 40MG TABLET PO SCH (21:46)
[2019-11-16] MEDS: ALBUTEROL (0.083%) 2.5MG/3ML NEB HHN SCH ×4 (01:47→22:17)
[2019-11-16] MEDS: IPRATROPIUM BROMIDE (0.02%) 0.5MG/2.5ML NEB HHN SCH ×3 (01:47→14:32)
[2019-11-16] MEDS: BLOOD SUGAR DIAGNOSTIC STRIP TEST SCH ×4 (06:45→21:09)
[2019-11-16] MEDS: FUROSEMIDE 40MG TABLET PO SCH ×2 (06:45→16:42)
[2019-11-16 07:55] VITALS: BP 91/60
[2019-11-16] MEDS: INSULIN LISPRO 100 UNITS/ML SUBCUT SCH ×4 (09:00→21:08)
[2019-11-16] MEDS: CARVEDILOL 6.25 MG TABLET PO SCH ×2 (09:00→21:05)
[2019-11-16] MEDS: MULTIVITAMINS,THER W-MINERALS TABLET PO SCH (09:20)
[2019-11-16] MEDS: PREGABALIN 50 MG CAPSULE PO SCH ×2 (09:20→16:40)
[2019-11-16] MEDS: CITALOPRAM HYDROBROMIDE 10MG TABLET PO SCH (09:20)
[2019-11-16] MEDS: ASPIRIN 81MG EC TABLET PO SCH (09:20)
[2019-11-16] MEDS: ALLOPURINOL 100 MG TABLET PO SCH ×2 (09:22→16:40)
[2019-11-16] MEDS: LIDOCAINE 5% PATCH TOP SCH (09:23)
[2019-11-16] MEDS: NYSTATIN POWDER 15GM TOP SCH ×3 (09:23→16:46)
[2019-11-16] MEDS: ENOXAPARIN 40MG/0.4ML SYR SUBCUT SCH ×2 (09:23→21:04)
[2019-11-16] MEDS: INSULIN GLARGINE UD 100 UNITS/ML SYR SUBCUT SCH ×2 (09:29→21:09)
[2019-11-16] MEDS: HYDROCODONE/ACETAMINOPHEN 5/325MG TABLET PO PRN ×2 (09:53→21:05)
[2019-11-16] MEDS: MONTELUKAST SODIUM 10MG TABLET PO SCH (16:40)
[2019-11-16 20:00] VITALS: BP 111/71
[2019-11-16] MEDS: ATORVASTATIN CALCIUM 40MG TABLET PO SCH (21:04)
[2019-11-17] MEDS: ALBUTEROL (0.083%) 2.5MG/3ML NEB HHN SCH ×4 (02:17→20:00)
[2019-11-17] MEDS: BLOOD SUGAR DIAGNOSTIC STRIP TEST SCH ×4 (06:12→21:44)
[2019-11-17] MEDS: INSULIN LISPRO 100 UNITS/ML SUBCUT SCH ×4 (06:13→21:00)
[2019-11-17] MEDS: FUROSEMIDE 40MG TABLET PO SCH ×3 (07:15→12:30)
[2019-11-17] MEDS: IPRATROPIUM BROMIDE (0.02%) 0.5MG/2.5ML NEB HHN SCH ×3 (07:34→20:00)
[2019-11-17 07:41] LABS: HEMATOCRIT. 27.4 % (36.0-48.0); HEMOGLOBIN. 9.2 g/dL (12.0-16.0); MEAN CORPUSCULAR HEMOGLOBIN 29.9 pg (28.0-32.0); MEAN CORPUSCULAR VOLUME 89.4 fL (81.0-99.0); MEAN PLATELET VOLUME 8.9 fl (7.4-10.4); PLATELET 225 x1000/uL (130-400); RED BLOOD CELL COUNT 3.06 mill/uL (4.2-5.4); RED CELL DISTRIBUTION WIDTH 16.3 % (11.6-14.6)
[2019-11-17 08:21] VITALS: BP 123/78
[2019-11-17] MEDS: NYSTATIN POWDER 15GM TOP SCH ×3 (09:00→17:38)
[2019-11-17] MEDS: ASPIRIN 81MG EC TABLET PO SCH (09:32)
[2019-11-17] MEDS: CITALOPRAM HYDROBROMIDE 10MG TABLET PO SCH (09:32)
[2019-11-17] MEDS: CARVEDILOL 6.25 MG TABLET PO SCH ×2 (09:32→21:38)
[2019-11-17] MEDS: PREGABALIN 50 MG CAPSULE PO SCH ×2 (09:32→17:38)
[2019-11-17] MEDS: MULTIVITAMINS,THER W-MINERALS TABLET PO SCH (09:33)
[2019-11-17] MEDS: HYDROCODONE/ACETAMINOPHEN 5/325MG TABLET PO PRN (09:36)
[2019-11-17] MEDS: LIDOCAINE 5% PATCH TOP SCH (09:36)
[2019-11-17] MEDS: ENOXAPARIN 40MG/0.4ML SYR SUBCUT SCH ×2 (09:37→21:37)
[2019-11-17] MEDS: ALLOPURINOL 100 MG TABLET PO SCH ×2 (09:39→17:38)
[2019-11-17] MEDS: INSULIN GLARGINE UD 100 UNITS/ML SYR SUBCUT SCH ×2 (11:02→22:51)
[2019-11-17 14:13] LABS: ATYPICAL LYMPHOCYTES 1
[2019-11-17 14:14] LABS: PLATELET ESTIMATE NORMAL
[2019-11-17] MEDS: MONTELUKAST SODIUM 10MG TABLET PO SCH (17:39)
[2019-11-17 20:00] VITALS: BP 111/67
[2019-11-17] MEDS: ATORVASTATIN CALCIUM 40MG TABLET PO SCH (21:37)
[2019-11-18] MEDS: HYDROCODONE/ACETAMINOPHEN 5/325MG TABLET PO PRN ×2 (00:22→23:36)
[2019-11-18] MEDS: ALBUTEROL (0.083%) 2.5MG/3ML NEB HHN SCH ×2 (00:43→20:28)
[2019-11-18] MEDS: IPRATROPIUM BROMIDE (0.02%) 0.5MG/2.5ML NEB HHN SCH ×2 (00:43→20:28)
[2019-11-18 06:45] LABS: HEMATOCRIT. 27.4 % (36.0-48.0); HEMOGLOBIN. 9.1 g/dL (12.0-16.0); MEAN CORPUSCULAR HEMOGLOBIN 29.7 pg (28.0-32.0); MEAN CORPUSCULAR VOLUME 89.7 fL (81.0-99.0); MEAN PLATELET VOLUME 8.8 fl (7.4-10.4); PLATELET 217 x1000/uL (130-400); RED BLOOD CELL COUNT 3.05 mill/uL (4.2-5.4); RED CELL DISTRIBUTION WIDTH 16.3 % (11.6-14.6)
[2019-11-18] MEDS: BLOOD SUGAR DIAGNOSTIC STRIP TEST SCH ×4 (07:21→21:13)
[2019-11-18 08:00] VITALS: BP 113/69
[2019-11-18] MEDS: ENOXAPARIN 40MG/0.4ML SYR SUBCUT SCH ×2 (08:44→20:56)
[2019-11-18] MEDS: NYSTATIN POWDER 15GM TOP SCH ×3 (08:45→17:58)
[2019-11-18] MEDS: LIDOCAINE 5% PATCH TOP SCH (08:45)
[2019-11-18] MEDS: ASPIRIN 81MG EC TABLET PO SCH (08:46)
[2019-11-18] MEDS: CARVEDILOL 6.25 MG TABLET PO SCH ×2 (08:46→20:56)
[2019-11-18] MEDS: PREGABALIN 50 MG CAPSULE PO SCH ×2 (08:46→17:58)
[2019-11-18] MEDS: FUROSEMIDE 40MG TABLET PO SCH (08:46)
[2019-11-18] MEDS: MULTIVITAMINS,THER W-MINERALS TABLET PO SCH (08:47)
[2019-11-18] MEDS: INSULIN LISPRO 100 UNITS/ML SUBCUT SCH ×4 (08:47→21:00)
[2019-11-18] MEDS: CITALOPRAM HYDROBROMIDE 10MG TABLET PO SCH (08:47)
[2019-11-18] MEDS: ALLOPURINOL 100 MG TABLET PO SCH ×2 (08:47→17:58)
[2019-11-18] MEDS: INSULIN GLARGINE UD 100 UNITS/ML SYR SUBCUT SCH (10:33)
[2019-11-18 13:29] LABS: PLATELET ESTIMATE NORMAL
[2019-11-18] MEDS: MONTELUKAST SODIUM 10MG TABLET PO SCH (17:58)
[2019-11-18 20:00] VITALS: BP 110/52
[2019-11-18] MEDS: ATORVASTATIN CALCIUM 40MG TABLET PO SCH (20:56)
[2019-11-19] MEDS: ALBUTEROL (0.083%) 2.5MG/3ML NEB HHN SCH ×4 (01:31→20:10)
[2019-11-19] MEDS: IPRATROPIUM BROMIDE (0.02%) 0.5MG/2.5ML NEB HHN SCH ×4 (01:31→20:10)
[2019-11-19] MEDS: INSULIN LISPRO 100 UNITS/ML SUBCUT SCH ×4 (06:26→20:35)
[2019-11-19] MEDS: BLOOD SUGAR DIAGNOSTIC STRIP TEST SCH ×4 (06:26→20:34)
[2019-11-19] MEDS: ENOXAPARIN 40MG/0.4ML SYR SUBCUT SCH ×2 (09:43→20:28)
[2019-11-19] MEDS: CITALOPRAM HYDROBROMIDE 10MG TABLET PO SCH (09:43)
[2019-11-19] MEDS: PREGABALIN 50 MG CAPSULE PO SCH ×2 (09:43→18:44)
[2019-11-19] MEDS: LIDOCAINE 5% PATCH TOP SCH (09:44)
[2019-11-19] MEDS: CARVEDILOL 6.25 MG TABLET PO SCH ×2 (09:44→20:29)
[2019-11-19] MEDS: ASPIRIN 81MG EC TABLET PO SCH (09:45)
[2019-11-19] MEDS: ALLOPURINOL 100 MG TABLET PO SCH ×2 (09:45→18:44)
[2019-11-19] MEDS: MULTIVITAMINS,THER W-MINERALS TABLET PO SCH (09:45)
[2019-11-19] MEDS: FUROSEMIDE 40MG TABLET PO SCH (09:45)
[2019-11-19] MEDS: NYSTATIN POWDER 15GM TOP SCH ×3 (09:58→18:45)
[2019-11-19] MEDS: ACETAMINOPHEN 325MG TABLET PO PRN (14:25)
[2019-11-19] MEDS: MONTELUKAST SODIUM 10MG TABLET PO SCH (18:44)
[2019-11-19 20:00] VITALS: BP 112/52
[2019-11-19] MEDS: ATORVASTATIN CALCIUM 40MG TABLET PO SCH (20:28)
[2019-11-20] MEDS: IPRATROPIUM BROMIDE (0.02%) 0.5MG/2.5ML NEB HHN SCH ×3 (01:30→20:38)
[2019-11-20] MEDS: ALBUTEROL (0.083%) 2.5MG/3ML NEB HHN SCH ×3 (01:30→20:38)
[2019-11-20] MEDS: BLOOD SUGAR DIAGNOSTIC STRIP TEST SCH ×4 (06:33→21:53)
[2019-11-20] MEDS: INSULIN LISPRO 100 UNITS/ML SUBCUT SCH ×4 (06:33→21:00)
[2019-11-20] MEDS: HYDROCODONE/ACETAMINOPHEN 5/325MG TABLET PO PRN ×2 (06:47→14:21)
[2019-11-20 08:24] VITALS: BP 92/72
[2019-11-20] MEDS: CARVEDILOL 6.25 MG TABLET PO SCH (08:35)
[2019-11-20] MEDS: CITALOPRAM HYDROBROMIDE 10MG TABLET PO SCH (10:27)
[2019-11-20] MEDS: FUROSEMIDE 40MG TABLET PO SCH (10:27)
[2019-11-20] MEDS: ASPIRIN 81MG EC TABLET PO SCH (10:27)
[2019-11-20] MEDS: PREGABALIN 50 MG CAPSULE PO SCH ×2 (10:27→17:41)
[2019-11-20] MEDS: ALLOPURINOL 100 MG TABLET PO SCH ×2 (10:27→17:41)
[2019-11-20] MEDS: MULTIVITAMINS,THER W-MINERALS TABLET PO SCH (10:28)
[2019-11-20] MEDS: ENOXAPARIN 40MG/0.4ML SYR SUBCUT SCH ×2 (10:28→21:52)
[2019-11-20] MEDS: LIDOCAINE 5% PATCH TOP SCH (10:28)
[2019-11-20] MEDS: NYSTATIN POWDER 15GM TOP SCH ×3 (10:49→21:00)
[2019-11-20] MEDS: ACETAMINOPHEN 500MG TABLET PO SCH (17:41)
[2019-11-20] MEDS: IBUPROFEN 200MG TABLET PO SCH (17:41)
[2019-11-20] MEDS: MONTELUKAST SODIUM 10MG TABLET PO SCH (17:41)
[2019-11-20 20:00] VITALS: BP 115/61
[2019-11-20] MEDS: CARVEDILOL 3.125 MG TABLET PO SCH (21:51)
[2019-11-20] MEDS: ATORVASTATIN CALCIUM 40MG TABLET PO SCH (21:52)
[2019-11-21] MEDS: ALBUTEROL (0.083%) 2.5MG/3ML NEB HHN SCH ×4 (01:49→22:32)
[2019-11-21] MEDS: IPRATROPIUM BROMIDE (0.02%) 0.5MG/2.5ML NEB HHN SCH ×4 (01:49→22:31)
[2019-11-21] MEDS: INSULIN LISPRO 100 UNITS/ML SUBCUT SCH ×4 (06:28→21:00)
[2019-11-21] MEDS: BLOOD SUGAR DIAGNOSTIC STRIP TEST SCH ×4 (06:28→21:09)
[2019-11-21] MEDS: ASPIRIN 81MG EC TABLET PO SCH (08:21)
[2019-11-21 08:25] VITALS: BP 102/50
[2019-11-21] MEDS: IBUPROFEN 200MG TABLET PO SCH ×3 (08:25→17:06)
[2019-11-21] MEDS: CITALOPRAM HYDROBROMIDE 10MG TABLET PO SCH (08:25)
[2019-11-21] MEDS: PREGABALIN 50 MG CAPSULE PO SCH ×2 (08:25→17:06)
[2019-11-21] MEDS: MULTIVITAMINS,THER W-MINERALS TABLET PO SCH (08:25)
[2019-11-21] MEDS: ACETAMINOPHEN 500MG TABLET PO SCH ×3 (08:26→17:07)
[2019-11-21] MEDS: LIDOCAINE 5% PATCH TOP SCH (08:26)
[2019-11-21] MEDS: FUROSEMIDE 40MG TABLET PO SCH (08:26)
[2019-11-21] MEDS: ENOXAPARIN 40MG/0.4ML SYR SUBCUT SCH ×2 (08:26→21:00)
[2019-11-21] MEDS: ALLOPURINOL 100 MG TABLET PO SCH ×2 (08:26→17:07)
[2019-11-21] MEDS: NYSTATIN POWDER 15GM TOP SCH ×3 (08:27→17:07)
[2019-11-21] MEDS: CARVEDILOL 3.125 MG TABLET PO SCH ×2 (08:27→21:00)
[2019-11-21 09:38] LABS: BASOPHILS % 0.7 % (0.0-2.0); EOSINOPHILS % 0.8 % (0.0-5.0); HEMATOCRIT. 29.8 % (36.0-48.0); HEMOGLOBIN. 9.5 g/dL (12.0-16.0); LYMPHOCYTES % 21.6 % (20.0-50.0); MEAN CORPUSCULAR HEMOGLOBIN 29.1 pg (28.0-32.0); MEAN CORPUSCULAR VOLUME 91.3 fL (81.0-99.0); NEUTROPHILS % 65.9 % (40.0-76.0); PLATELET 175 x1000/uL (130-400); RED BLOOD CELL COUNT 3.27 mill/uL (4.2-5.4)
[2019-11-21] MEDS ORDERED: HYDROCODONE/ACETAMINOPHEN 5/325MG TABLET PO PRN (10:15)
[2019-11-21] MEDS: MONTELUKAST SODIUM 10MG TABLET PO SCH (17:06)
[2019-11-21 20:00] VITALS: BP 112/47
[2019-11-21] MEDS: ATORVASTATIN CALCIUM 40MG TABLET PO SCH (20:59)
[2019-11-22] MEDS: IPRATROPIUM BROMIDE (0.02%) 0.5MG/2.5ML NEB HHN SCH ×4 (02:25→22:34)
[2019-11-22] MEDS: ALBUTEROL (0.083%) 2.5MG/3ML NEB HHN SCH ×4 (02:25→22:34)
[2019-11-22] MEDS: BLOOD SUGAR DIAGNOSTIC STRIP TEST SCH ×4 (06:39→21:00)
[2019-11-22] MEDS: INSULIN LISPRO 100 UNITS/ML SUBCUT SCH ×4 (06:39→21:00)
[2019-11-22 07:44] VITALS: BP 108/47
[2019-11-22] MEDS: CARVEDILOL 3.125 MG TABLET PO SCH ×2 (09:00→21:00)
[2019-11-22] MEDS: MULTIVITAMINS,THER W-MINERALS TABLET PO SCH (09:17)
[2019-11-22] MEDS: ASPIRIN 81MG EC TABLET PO SCH (09:17)
[2019-11-22] MEDS: PREGABALIN 50 MG CAPSULE PO SCH ×2 (09:18→16:53)
[2019-11-22] MEDS: IBUPROFEN 200MG TABLET PO SCH ×3 (09:18→16:54)
[2019-11-22] MEDS: FUROSEMIDE 40MG TABLET PO SCH (09:18)
[2019-11-22] MEDS: ERGOCALCIFEROL 50000UNITS CAPSULE PO SCH (09:18)
[2019-11-22] MEDS: ALLOPURINOL 100 MG TABLET PO SCH ×2 (09:18→16:53)
[2019-11-22] MEDS: CITALOPRAM HYDROBROMIDE 10MG TABLET PO SCH (09:18)
[2019-11-22] MEDS: NYSTATIN POWDER 15GM TOP SCH ×3 (09:19→16:54)
[2019-11-22] MEDS: ENOXAPARIN 40MG/0.4ML SYR SUBCUT SCH ×2 (09:19→21:40)
[2019-11-22] MEDS: ACETAMINOPHEN 500MG TABLET PO SCH ×3 (09:19→16:53)
[2019-11-22] MEDS: LIDOCAINE 5% PATCH TOP SCH (09:19)
[2019-11-22] MEDS ORDERED: LIP40 PO (12:13)
[2019-11-22] MEDS ORDERED: MONT10TA21 PO (12:13)
[2019-11-22] MEDS: MONTELUKAST SODIUM 10MG TABLET PO SCH (16:53)
[2019-11-22 20:00] VITALS: BP 106/47
[2019-11-22] MEDS: ATORVASTATIN CALCIUM 40MG TABLET PO SCH (21:39)
[2019-11-23] MEDS: IPRATROPIUM BROMIDE (0.02%) 0.5MG/2.5ML NEB HHN SCH (02:28)
[2019-11-23] MEDS: ALBUTEROL (0.083%) 2.5MG/3ML NEB HHN SCH ×2 (02:28→13:42)
[2019-11-23] MEDS: INSULIN LISPRO 100 UNITS/ML SUBCUT SCH ×2 (06:17→13:00)
[2019-11-23] MEDS: BLOOD SUGAR DIAGNOSTIC STRIP TEST SCH ×2 (06:17→11:40)
[2019-11-23 08:00] VITALS: BP 96/66
[2019-11-23] MEDS: FUROSEMIDE 40MG TABLET PO SCH ×2 (08:55→09:00)
[2019-11-23] MEDS: PREGABALIN 50 MG CAPSULE PO SCH (08:55)
[2019-11-23] MEDS: ASPIRIN 81MG EC TABLET PO SCH (08:55)
[2019-11-23] MEDS: MULTIVITAMINS,THER W-MINERALS TABLET PO SCH (08:55)
[2019-11-23] MEDS: ALLOPURINOL 100 MG TABLET PO SCH (08:55)
[2019-11-23] MEDS: CARVEDILOL 3.125 MG TABLET PO SCH (08:56)
[2019-11-23] MEDS: CITALOPRAM HYDROBROMIDE 10MG TABLET PO SCH (08:56)
[2019-11-23] MEDS: ENOXAPARIN 40MG/0.4ML SYR SUBCUT SCH (08:57)
[2019-11-23] MEDS: LIDOCAINE 5% PATCH TOP SCH (08:58)
[2019-11-23] MEDS: NYSTATIN POWDER 15GM TOP SCH ×2 (09:00→13:00)
[2019-11-23] MEDS: ACETAMINOPHEN 500MG TABLET PO SCH ×2 (09:52→14:03)
[2019-11-23] MEDS: IBUPROFEN 200MG TABLET PO SCH ×2 (09:53→14:07)
[2019-11-23 12:05] VITALS: BP 96/66
[2019-11-23 14:07] VITALS: BP 128/77
== END 2019-11-23 14:25 | disposition home or self-care (01) | DRG 551 ==
PROVIDERS: ADMIT Physical Medicine & Rehabilitation Spinal Cord Injury Medicine; ATTEND Internal Medicine
PROC: 5A09357 Assistance with Respiratory Ventilation, Less than 24 Consecutive Hours, Continuous Positive Airway Pressure (ICD-10-PCS; principal; 2019-11-10)
PROC: 5A09357 Assistance with Respiratory Ventilation, Less than 24 Consecutive Hours, Continuous Positive Airway Pressure (ICD-10-PCS; 2019-11-11)
PROC: 5A09357 Assistance with Respiratory Ventilation, Less than 24 Consecutive Hours, Continuous Positive Airway Pressure (ICD-10-PCS; 2019-11-12)
PROC: 5A09357 Assistance with Respiratory Ventilation, Less than 24 Consecutive Hours, Continuous Positive Airway Pressure (ICD-10-PCS; 2019-11-13)
PROC: 5A09357 Assistance with Respiratory Ventilation, Less than 24 Consecutive Hours, Continuous Positive Airway Pressure (ICD-10-PCS; 2019-11-14)
PROC: 5A09357 Assistance with Respiratory Ventilation, Less than 24 Consecutive Hours, Continuous Positive Airway Pressure (ICD-10-PCS; 2019-11-15)
PROC: 5A09357 Assistance with Respiratory Ventilation, Less than 24 Consecutive Hours, Continuous Positive Airway Pressure (ICD-10-PCS; 2019-11-16)
PROC: 5A09357 Assistance with Respiratory Ventilation, Less than 24 Consecutive Hours, Continuous Positive Airway Pressure (ICD-10-PCS; 2019-11-17)
PROC: 5A09357 Assistance with Respiratory Ventilation, Less than 24 Consecutive Hours, Continuous Positive Airway Pressure (ICD-10-PCS; 2019-11-18)
PROC: 5A09357 Assistance with Respiratory Ventilation, Less than 24 Consecutive Hours, Continuous Positive Airway Pressure (ICD-10-PCS; 2019-11-19)
PROC: 5A09357 Assistance with Respiratory Ventilation, Less than 24 Consecutive Hours, Continuous Positive Airway Pressure (ICD-10-PCS; 2019-11-20)
PROC: 5A09357 Assistance with Respiratory Ventilation, Less than 24 Consecutive Hours, Continuous Positive Airway Pressure (ICD-10-PCS; 2019-11-21)
PROC: 5A09357 Assistance with Respiratory Ventilation, Less than 24 Consecutive Hours, Continuous Positive Airway Pressure (ICD-10-PCS; 2019-11-22)
PROC: 5A09357 Assistance with Respiratory Ventilation, Less than 24 Consecutive Hours, Continuous Positive Airway Pressure (ICD-10-PCS; 2019-11-23)
DX: M48.02 Spinal stenosis, cervical region (principal); G82.50 Quadriplegia, unspecified; I50.23 Acute on chronic systolic (congestive) heart failure; I42.0 Dilated cardiomyopathy; L03.113 Cellulitis of right upper limb; N39.0 Urinary tract infection, site not specified; Z68.43 Body mass index [BMI] 50.0-59.9, adult; N17.9 Acute kidney failure, unspecified; D64.9 Anemia, unspecified; E11.42 Type 2 diabetes mellitus with diabetic polyneuropathy; E66.01 Morbid (severe) obesity due to excess calories; E78.00 Pure hypercholesterolemia, unspecified; E87.5 Hyperkalemia; E78.5 Hyperlipidemia, unspecified; G47.33 Obstructive sleep apnea (adult) (pediatric); I11.0 Hypertensive heart disease with heart failure; M48.061 Spinal stenosis, lumbar region without neurogenic claudication; I25.10 Atherosclerotic heart disease of native coronary artery without angina pectoris; E53.8 Deficiency of other specified B group vitamins; I27.20 Pulmonary hypertension, unspecified; J44.9 Chronic obstructive pulmonary disease, unspecified; M75.01 Adhesive capsulitis of right shoulder; M75.02 Adhesive capsulitis of left shoulder; R53.81 Other malaise; D72.819 Decreased white blood cell count, unspecified; I95.9 Hypotension, unspecified; I27.21 Secondary pulmonary arterial hypertension; M17.0 Bilateral primary osteoarthritis of knee; R62.7 Adult failure to thrive; Z79.4 Long term (current) use of insulin; Z82.49 Family history of ischemic heart disease and other diseases of the circulatory system; Z83.3 Family history of diabetes mellitus; Z95.810 Presence of automatic (implantable) cardiac defibrillator; Z92.21 Personal history of antineoplastic chemotherapy; Z90.710 Acquired absence of both cervix and uterus
CPT/HCPCS: 36415; 73200; 73560; 76770; 80048; 80053; 81003; 82306; 82607; 82728; 82746; 82962; 83540; 83550; 83735; 84100; 84134; 84145; 84443; 85025; 86141; 93970; 93971; 94003; 94640; 94660; 97110; 97112; 97116; 97162; 97166; 97530; 97535; J1650; J1815; J3420

== ENCOUNTER 2019-12-10 07:53 | Inpatient (IN) | payer MEDICARE, MEDICAID ==
[~2019-12-10] VITALS: Ht 170.2 cm; Wt 145.8 kg
[~2019-12-10 07:53] MED LIST changes: -INSU100V40 SUBCUT; -LEVVL SQ; +LIP40 PO; +MONT10TA21 PO; -MONT5TAB13 PO; -SIMV-46 PO
[2019-12-10] MEDS ORDERED: FUROSEMIDE 40MG/4ML VIAL IV ONE (08:15)
[2019-12-10] MEDS ORDERED: NITROGLYCERIN 0.4MG TABLET SL SL PRN (08:15)
[2019-12-10] MEDS ORDERED: ASPIRIN 81MG TABLET PO ONE (08:15)
[2019-12-10 08:54] LABS: BASOPHILS % 0.8 % (0.0-2.0); EOSINOPHILS % 5.4 % (0.0-5.0); HEMATOCRIT. 32.9 % (36.0-48.0); HEMOGLOBIN. 10.8 g/dL (12.0-16.0); LYMPHOCYTES % 15.1 % (20.0-50.0); MEAN CORPUSCULAR HEMOGLOBIN 29.8 pg (28.0-32.0); MEAN CORPUSCULAR VOLUME 91.1 fL (81.0-99.0); MONOCYTES % 11.2 % (2.0-8.0); NEUTROPHILS % 67.5 % (40.0-76.0); PLATELET 162 x1000/uL (130-400); RED BLOOD CELL COUNT 3.61 mill/uL (4.2-5.4); RED CELL DISTRIBUTION WIDTH 19.3 % (11.6-14.6)
[2019-12-10 08:58] LABS: CHLORIDE 110 mEq/L (98-107)
[2019-12-10] MEDS ORDERED: MORPHINE SULFATE 2 MG/ML CPJ (NOT FOR IM USE) IV PRN (11:30)
[2019-12-10] MEDS ORDERED: CITALOPRAM HYDROBROMIDE 10MG TABLET PO SCH (11:30)
[2019-12-10] MEDS ORDERED: GUAIFENESIN 200MG/10ML SUGAR FREE UDC PO PRN (11:30)
[2019-12-10] MEDS ORDERED: DOCUSATE SODIUM 100MG CAPSULE PO PRN (11:30)
[2019-12-10] MEDS ORDERED: HYDROCODONE/ACETAMINOPHEN 5/325MG TABLET PO PRN (11:30)
[2019-12-10] MEDS ORDERED: CARVEDILOL 6.25 MG TABLET PO ONE (11:30)
[2019-12-10] MEDS ORDERED: ONDANSETRON HCL 4MG/2ML INJ IV PRN (11:30)
[2019-12-10] MEDS ORDERED: ACETAMINOPHEN 325MG TABLET PO PRN (11:30)
[2019-12-10] MEDS ORDERED: MAGNESIUM/ALUMINUM HYDROXIDE/SIMETHICONE 30ML UDC PO PRN (11:30)
[2019-12-10] MEDS ORDERED: CLONIDINE 0.1MG TABLET PO PRN (11:30)
[2019-12-10] MEDS ORDERED: POTASSIUM CHLORIDE 20MEQ TABLET SR PO SCH (11:45)
[2019-12-10] MEDS: PREGABALIN 25MG CAPSULE PO SCH ×2 (12:00→23:10)
[2019-12-10] MEDS: ALLOPURINOL 100 MG TABLET PO SCH ×2 (12:30→17:18)
[2019-12-10] MEDS ORDERED: DEXTROSE 50% WATER 50ML SYRINGE IV PRN (13:15)
[2019-12-10] MEDS: INSULIN LISPRO (HIGH DOSE) 100 UNITS/ML SUBCUT SCH ×3 (13:20→22:00)
[2019-12-10] MEDS: ENOXAPARIN 30MG/0.3ML SYR SUBCUT SCH (13:35)
[2019-12-10] MEDS: BLOOD SUGAR DIAGNOSTIC STRIP TEST SCH ×3 (13:36→22:00)
[2019-12-10] MEDS: IPRATROPIUM/ALBUTEROL 0.5-3(2.5)MG/3ML NEB HHN PRN ×2 (14:17→23:16)
[2019-12-10] MEDS ORDERED: MONTELUKAST SODIUM 10MG TABLET PO NR (16:45)
[2019-12-10] MEDS: FUROSEMIDE 40MG/4ML VIAL IV SCH ×2 (17:00→17:18)
[2019-12-10] MEDS ORDERED: ATORVASTATIN CALCIUM 40MG TABLET PO NR (22:15)
[2019-12-10] MEDS ORDERED: ATORVASTATIN CALCIUM 20MG TABLET PO NR (22:15)
[2019-12-11] VITALS (8 sets, daily range): BP systolic 111–144; BP diastolic 60–94
[2019-12-11] MEDS: ENOXAPARIN 30MG/0.3ML SYR SUBCUT SCH ×3 (02:21→21:18)
[2019-12-11] MEDS: INSULIN LISPRO (HIGH DOSE) 100 UNITS/ML SUBCUT SCH ×4 (08:20→21:00)
[2019-12-11] MEDS: BLOOD SUGAR DIAGNOSTIC STRIP TEST SCH ×4 (08:31→21:08)
[2019-12-11] MEDS: FUROSEMIDE 40MG/4ML VIAL IV SCH ×2 (08:31→17:32)
[2019-12-11 08:46] LABS: BASOPHILS % 0.9 % (0.0-2.0); EOSINOPHILS % 7.8 % (0.0-5.0); HEMOGLOBIN. 10.6 g/dL (12.0-16.0); LYMPHOCYTES % 12.7 % (20.0-50.0); MEAN CORPUSCULAR HEMOGLOBIN 29.9 pg (28.0-32.0); MEAN CORPUSCULAR VOLUME 90.5 fL (81.0-99.0); MEAN PLATELET VOLUME 9.3 fl (7.4-10.4); NEUTROPHILS % 66.6 % (40.0-76.0); PLATELET 143 x1000/uL (130-400); RED BLOOD CELL COUNT 3.53 mill/uL (4.2-5.4); RED CELL DISTRIBUTION WIDTH 18.8 % (11.6-14.6)
[2019-12-11 08:47] LABS: CHLORIDE 110 mEq/L (98-107)
[2019-12-11 08:54] LABS: LDL CHOLESTEROL 45 mg/dL (5-100)
[2019-12-11 08:55] LABS: HDL CHOLESTEROL 40 mg/dL (40-59)
[2019-12-11] MEDS ORDERED: CLONIDINE 0.1MG TABLET PO PRN (13:00)
[2019-12-11] MEDS ORDERED: MORPHINE SULFATE 2 MG/ML CPJ (NOT FOR IM USE) IV PRN (13:00)
[2019-12-11] MEDS ORDERED: MAGNESIUM/ALUMINUM HYDROXIDE/SIMETHICONE 30ML UDC PO PRN (13:00)
[2019-12-11] MEDS ORDERED: GUAIFENESIN 200MG/10ML SUGAR FREE UDC PO PRN (13:00)
[2019-12-11] MEDS ORDERED: DOCUSATE SODIUM 100MG CAPSULE PO PRN (13:00)
[2019-12-11] MEDS ORDERED: ONDANSETRON HCL 4MG/2ML INJ IV PRN (13:00)
[2019-12-11] MEDS ORDERED: HYDROCODONE/ACETAMINOPHEN 5/325MG TABLET PO PRN (13:00)
[2019-12-11] MEDS ORDERED: ACETAMINOPHEN 325MG TABLET PO PRN (13:00)
[2019-12-11] MEDS ORDERED: DEXTROSE 50% WATER 50ML SYRINGE IV PRN (13:00)
[2019-12-11] MEDS: CITALOPRAM HYDROBROMIDE 10MG TABLET PO SCH (13:28)
[2019-12-11] MEDS: POTASSIUM CHLORIDE 20MEQ TABLET SR PO SCH (13:29)
[2019-12-11] MEDS: PREGABALIN 50 MG CAPSULE PO SCH ×2 (13:29→21:17)
[2019-12-11] MEDS: ALLOPURINOL 100 MG TABLET PO SCH ×2 (13:29→21:17)
[2019-12-11] MEDS ORDERED: SODIUM BICARBONATE 4% (2.4MEQ) 5ML VIAL IV ONE (13:55)
[2019-12-11] MEDS ORDERED: LIDOCAINE HCL 1% 20ML VIAL (Pyxis) INJ ONE (13:55)
[2019-12-11] MEDS ORDERED: POTASSIUM CHLORIDE 20MEQ TABLET SR PO NR (16:00)
[2019-12-11] MEDS ORDERED: MONTELUKAST SODIUM 10MG TABLET PO SCH ×2 (17:00)
[2019-12-11] MEDS: MONTELUKAST SODIUM 10MG TABLET PO SCH (17:32)
[2019-12-11] MEDS ORDERED: ATORVASTATIN CALCIUM 40MG TABLET PO SCH (21:00)
[2019-12-11] MEDS: ATORVASTATIN CALCIUM 40MG TABLET PO SCH (21:17)
[2019-12-12] VITALS (11 sets, daily range): BP systolic 99–157; BP diastolic 57–80
[2019-12-12 06:44] LABS: BASOPHILS % 0.6 % (0.0-2.0); EOSINOPHILS % 6.6 % (0.0-5.0); HEMATOCRIT. 30.4 % (36.0-48.0); LYMPHOCYTES % 18.5 % (20.0-50.0); MEAN CORPUSCULAR VOLUME 90.7 fL (81.0-99.0); MEAN PLATELET VOLUME 9.8 fl (7.4-10.4); MONOCYTES % 11.3 % (2.0-8.0); PLATELET 138 x1000/uL (130-400); RED BLOOD CELL COUNT 3.35 mill/uL (4.2-5.4); RED CELL DISTRIBUTION WIDTH 18.8 % (11.6-14.6)
[2019-12-12] MEDS: BLOOD SUGAR DIAGNOSTIC STRIP TEST SCH ×4 (06:54→21:53)
[2019-12-12] MEDS: INSULIN LISPRO (HIGH DOSE) 100 UNITS/ML SUBCUT SCH ×4 (07:20→21:00)
[2019-12-12 07:57] LABS: CHLORIDE 109 mEq/L (98-107)
[2019-12-12] MEDS: FUROSEMIDE 40MG/4ML VIAL IV SCH ×2 (09:22→17:18)
[2019-12-12] MEDS: POTASSIUM CHLORIDE 20MEQ TABLET SR PO SCH (09:22)
[2019-12-12] MEDS: CITALOPRAM HYDROBROMIDE 10MG TABLET PO SCH (09:22)
[2019-12-12] MEDS: PREGABALIN 50 MG CAPSULE PO SCH ×2 (09:22→21:38)
[2019-12-12] MEDS: ALLOPURINOL 100 MG TABLET PO SCH ×2 (09:22→16:36)
[2019-12-12] MEDS: ENOXAPARIN 30MG/0.3ML SYR SUBCUT SCH (09:23)
[2019-12-12] MEDS: BENZONATATE 100MG CAPSULE PO SCH ×2 (12:16→21:38)
[2019-12-12] MEDS: FAMOTIDINE 20MG/2ML VIAL IV SCH (12:16)
[2019-12-12] MEDS: LORATADINE 10MG TABLET PO SCH (12:16)
[2019-12-12] MEDS: LIDOCAINE 5% PATCH TOP SCH (12:47)
[2019-12-12] MEDS: IPRATROPIUM/ALBUTEROL 0.5-3(2.5)MG/3ML NEB HHN SCH ×2 (13:58→21:55)
[2019-12-12] MEDS ORDERED: METOLAZONE 2.5MG TABLET PO NR (16:00)
[2019-12-12] MEDS: MONTELUKAST SODIUM 10MG TABLET PO SCH (16:36)
[2019-12-12] MEDS: ATORVASTATIN CALCIUM 40MG TABLET PO SCH (21:38)
[2019-12-12] MEDS: ENOXAPARIN 40MG/0.4ML SYR SUBCUT SCH (21:39)
[2019-12-13] VITALS (15 sets, daily range): BP systolic 82–127; BP diastolic 53–80
[2019-12-13] MEDS: BENZONATATE 100MG CAPSULE PO SCH ×3 (05:11→20:37)
[2019-12-13] MEDS: BLOOD SUGAR DIAGNOSTIC STRIP TEST SCH ×4 (06:18→20:38)
[2019-12-13] MEDS: INSULIN LISPRO (HIGH DOSE) 100 UNITS/ML SUBCUT SCH ×4 (07:20→20:38)
[2019-12-13] MEDS: IPRATROPIUM/ALBUTEROL 0.5-3(2.5)MG/3ML NEB HHN SCH ×3 (08:22→22:13)
[2019-12-13] MEDS: FUROSEMIDE 40MG/4ML VIAL IV SCH ×2 (09:00→18:06)
[2019-12-13] MEDS: PREGABALIN 50 MG CAPSULE PO SCH ×2 (11:15→20:37)
[2019-12-13] MEDS: CITALOPRAM HYDROBROMIDE 10MG TABLET PO SCH (11:15)
[2019-12-13] MEDS: ALLOPURINOL 100 MG TABLET PO SCH ×2 (11:15→18:07)
[2019-12-13] MEDS: POTASSIUM CHLORIDE 20MEQ TABLET SR PO SCH (11:16)
[2019-12-13] MEDS: FAMOTIDINE 20MG/2ML VIAL IV SCH (11:16)
[2019-12-13] MEDS: ENOXAPARIN 40MG/0.4ML SYR SUBCUT SCH ×2 (11:16→20:38)
[2019-12-13] MEDS: LORATADINE 10MG TABLET PO SCH (11:16)
[2019-12-13] MEDS ORDERED: METOLAZONE 2.5MG TABLET PO NR (11:30)
[2019-12-13] MEDS: LIDOCAINE 5% PATCH TOP SCH (12:17)
[2019-12-13 13:14] LABS: BASOPHILS % 0.7 % (0.0-2.0); EOSINOPHILS % 9.4 % (0.0-5.0); HEMATOCRIT. 29.3 % (36.0-48.0); HEMOGLOBIN. 9.7 g/dL (12.0-16.0); LYMPHOCYTES % 15.1 % (20.0-50.0); MEAN CORPUSCULAR HEMOGLOBIN 30.1 pg (28.0-32.0); MEAN CORPUSCULAR VOLUME 90.8 fL (81.0-99.0); MEAN PLATELET VOLUME 10.1 fl (7.4-10.4); MONOCYTES % 12.2 % (2.0-8.0); NEUTROPHILS % 62.6 % (40.0-76.0); PLATELET 137 x1000/uL (130-400); RED BLOOD CELL COUNT 3.23 mill/uL (4.2-5.4); RED CELL DISTRIBUTION WIDTH 18.6 % (11.6-14.6)
[2019-12-13 13:16] LABS: CHLORIDE 106 mEq/L (98-107)
[2019-12-13] MEDS: MONTELUKAST SODIUM 10MG TABLET PO SCH (18:06)
[2019-12-13] MEDS: ATORVASTATIN CALCIUM 40MG TABLET PO SCH (20:37)
[2019-12-13] MEDS: BUDESONIDE 0.5MG/2ML NEB HHN SCH (22:13)
[2019-12-14] VITALS (12 sets, daily range): BP systolic 109–141; BP diastolic 58–86
[2019-12-14] MEDS: IPRATROPIUM/ALBUTEROL 0.5-3(2.5)MG/3ML NEB HHN SCH ×4 (03:20→21:10)
[2019-12-14] MEDS: BENZONATATE 100MG CAPSULE PO SCH ×2 (05:01→12:18)
[2019-12-14] MEDS: INSULIN LISPRO (HIGH DOSE) 100 UNITS/ML SUBCUT SCH ×4 (06:26→21:00)
[2019-12-14] MEDS: BLOOD SUGAR DIAGNOSTIC STRIP TEST SCH ×4 (06:26→20:52)
[2019-12-14 06:58] LABS: BASOPHILS % 0.9 % (0.0-2.0); EOSINOPHILS % 8.7 % (0.0-5.0); HEMATOCRIT. 29.1 % (36.0-48.0); HEMOGLOBIN. 9.7 g/dL (12.0-16.0); LYMPHOCYTES % 19.5 % (20.0-50.0); MEAN CORPUSCULAR HEMOGLOBIN 30.1 pg (28.0-32.0); MEAN CORPUSCULAR VOLUME 90.2 fL (81.0-99.0); MEAN PLATELET VOLUME 9.8 fl (7.4-10.4); NEUTROPHILS % 58.9 % (40.0-76.0); PLATELET 137 x1000/uL (130-400); RED BLOOD CELL COUNT 3.23 mill/uL (4.2-5.4)
[2019-12-14 07:48] LABS: CHLORIDE 104 mEq/L (98-107)
[2019-12-14] MEDS: ENOXAPARIN 40MG/0.4ML SYR SUBCUT SCH ×2 (08:41→20:52)
[2019-12-14] MEDS: LIDOCAINE 5% PATCH TOP SCH (08:43)
[2019-12-14] MEDS: FUROSEMIDE 40MG/4ML VIAL IV SCH ×2 (08:43→17:06)
[2019-12-14] MEDS: FAMOTIDINE 20MG/2ML VIAL IV SCH (08:43)
[2019-12-14] MEDS: ALLOPURINOL 100 MG TABLET PO SCH ×2 (08:44→17:07)
[2019-12-14] MEDS: PREGABALIN 50 MG CAPSULE PO SCH ×2 (08:44→20:52)
[2019-12-14] MEDS: CITALOPRAM HYDROBROMIDE 10MG TABLET PO SCH (08:44)
[2019-12-14] MEDS: POTASSIUM CHLORIDE 20MEQ TABLET SR PO SCH (08:44)
[2019-12-14] MEDS: LORATADINE 10MG TABLET PO SCH (08:44)
[2019-12-14] MEDS: BUDESONIDE 0.5MG/2ML NEB HHN SCH ×2 (09:55→21:10)
[2019-12-14] MEDS ORDERED: DIPHENHYDRAMINE 50MG CAPSULE PO PRN (11:15)
[2019-12-14] MEDS: DIPHENHYDRAMINE 50MG/ML VIAL IV PRN (11:22)
[2019-12-14] MEDS ORDERED: METOLAZONE 2.5MG TABLET PO NR (17:00)
[2019-12-14] MEDS: MONTELUKAST SODIUM 10MG TABLET PO SCH (17:07)
[2019-12-14] MEDS: ATORVASTATIN CALCIUM 40MG TABLET PO SCH (20:51)
[2019-12-15] VITALS (10 sets, daily range): BP systolic 94–130; BP diastolic 52–78
[2019-12-15] MEDS: IPRATROPIUM/ALBUTEROL 0.5-3(2.5)MG/3ML NEB HHN SCH ×2 (02:08→07:38)
[2019-12-15] MEDS: BENZONATATE 100MG CAPSULE PO SCH ×2 (04:09→12:18)
[2019-12-15] MEDS: DIPHENHYDRAMINE 50MG/ML VIAL IV PRN (06:17)
[2019-12-15] MEDS: BLOOD SUGAR DIAGNOSTIC STRIP TEST SCH ×2 (06:17→12:10)
[2019-12-15 06:23] LABS: BASOPHILS % 0.8 % (0.0-2.0); EOSINOPHILS % 10.5 % (0.0-5.0); HEMATOCRIT. 30.3 % (36.0-48.0); HEMOGLOBIN. 10.1 g/dL (12.0-16.0); LYMPHOCYTES % 23.1 % (20.0-50.0); MEAN CORPUSCULAR HEMOGLOBIN 29.8 pg (28.0-32.0); MEAN CORPUSCULAR VOLUME 89.8 fL (81.0-99.0); MEAN PLATELET VOLUME 9.5 fl (7.4-10.4); MONOCYTES % 12.1 % (2.0-8.0); NEUTROPHILS % 53.5 % (40.0-76.0); PLATELET 145 x1000/uL (130-400); RED BLOOD CELL COUNT 3.38 mill/uL (4.2-5.4); RED CELL DISTRIBUTION WIDTH 18.4 % (11.6-14.6)
[2019-12-15] MEDS: INSULIN LISPRO (HIGH DOSE) 100 UNITS/ML SUBCUT SCH ×2 (07:08→12:10)
[2019-12-15] MEDS: BUDESONIDE 0.5MG/2ML NEB HHN SCH (07:38)
[2019-12-15] MEDS: ENOXAPARIN 40MG/0.4ML SYR SUBCUT SCH (08:54)
[2019-12-15] MEDS: FUROSEMIDE 40MG/4ML VIAL IV SCH (08:54)
[2019-12-15] MEDS: FAMOTIDINE 20MG/2ML VIAL IV SCH (08:54)
[2019-12-15] MEDS: ALLOPURINOL 100 MG TABLET PO SCH (08:55)
[2019-12-15] MEDS: CITALOPRAM HYDROBROMIDE 10MG TABLET PO SCH (08:55)
[2019-12-15] MEDS: POTASSIUM CHLORIDE 20MEQ TABLET SR PO SCH (08:55)
[2019-12-15] MEDS: LORATADINE 10MG TABLET PO SCH (08:55)
[2019-12-15] MEDS: PREGABALIN 50 MG CAPSULE PO SCH (08:55)
[2019-12-15] MEDS: LIDOCAINE 5% PATCH TOP SCH (08:57)
[2019-12-15] MEDS ORDERED: METOLAZONE 2.5MG TABLET PO SCH (09:00)
[2019-12-15] MEDS ORDERED: POTASSIUM CHLORIDE 20MEQ TABLET SR PO NR (09:15)
[2019-12-15] MEDS ORDERED: IPRATROPIUM/ALBUTEROL 0.5-3(2.5)MG/3ML NEB HHN SCH (14:00)
== END 2019-12-15 17:45 | disposition home or self-care (01) | DRG 291 ==
LOC: ER 08:11 → 3WST 10:42 → EDBEDREQTM 10:47 → EDBEDREQ 10:47 → ENRESERV 12-11 07:37 → ER 12-11 09:40
PROVIDERS: ADMIT Hospitalist; ATTEND Hospitalist
PROC: 05HY33Z Insertion of Infusion Device into Upper Vein, Percutaneous Approach (ICD-10-PCS; principal; 2019-12-11)
PROC: B54MZZA Ultrasonography of Right Upper Extremity Veins, Guidance (ICD-10-PCS; 2019-12-11)
PROC: 5A09357 Assistance with Respiratory Ventilation, Less than 24 Consecutive Hours, Continuous Positive Airway Pressure (ICD-10-PCS; 2019-12-11)
PROC: 5A09357 Assistance with Respiratory Ventilation, Less than 24 Consecutive Hours, Continuous Positive Airway Pressure (ICD-10-PCS; 2019-12-12)
PROC: 5A09357 Assistance with Respiratory Ventilation, Less than 24 Consecutive Hours, Continuous Positive Airway Pressure (ICD-10-PCS; 2019-12-13)
PROC: 5A09357 Assistance with Respiratory Ventilation, Less than 24 Consecutive Hours, Continuous Positive Airway Pressure (ICD-10-PCS; 2019-12-14)
PROC: 5A09357 Assistance with Respiratory Ventilation, Less than 24 Consecutive Hours, Continuous Positive Airway Pressure (ICD-10-PCS; 2019-12-15)
DX: I11.0 Hypertensive heart disease with heart failure (principal); J96.00 Acute respiratory failure, unspecified whether with hypoxia or hypercapnia; E43 Unspecified severe protein-calorie malnutrition; J45.901 Unspecified asthma with (acute) exacerbation; Z68.43 Body mass index [BMI] 50.0-59.9, adult; I50.23 Acute on chronic systolic (congestive) heart failure; I42.9 Cardiomyopathy, unspecified; E11.9 Type 2 diabetes mellitus without complications; E78.5 Hyperlipidemia, unspecified; E66.01 Morbid (severe) obesity due to excess calories; M10.9 Gout, unspecified; D63.8 Anemia in other chronic diseases classified elsewhere; I48.91 Unspecified atrial fibrillation; J44.9 Chronic obstructive pulmonary disease, unspecified; E87.6 Hypokalemia; I27.20 Pulmonary hypertension, unspecified; I34.0 Nonrheumatic mitral (valve) insufficiency; D72.1 Eosinophilia; G47.33 Obstructive sleep apnea (adult) (pediatric); Z92.21 Personal history of antineoplastic chemotherapy; Z85.71 Personal history of Hodgkin lymphoma; Z95.810 Presence of automatic (implantable) cardiac defibrillator; Z90.710 Acquired absence of both cervix and uterus
CPT/HCPCS: 36415; 71045; 76937; 80048; 80053; 80061; 82962; 83880; 84484; 85025; 93005; 99285; C1725; C1769; J1200; J1650; J1815; J1940; J3490; J7626

== ENCOUNTER 2020-01-16 16:25 | Inpatient (IN) | payer MEDICARE, MEDICAID ==
[~2020-01-16] VITALS: Ht 162.6 cm; Wt 156.9 kg
[2020-01-16] MEDS ORDERED: MAGNESIUM 2 G PREMIX 50 ML IV STA (16:55)
[2020-01-16] MEDS ORDERED: IPRATROPIUM BROMIDE (0.02%) 0.5MG/2.5ML NEB HHN STA (16:55)
[2020-01-16] MEDS ORDERED: METHYLPREDNISOLONE SOD SUCC 125 MG/2 ML VIAL IV STA (16:55)
[2020-01-16] MEDS ORDERED: ALBUTEROL (0.083%) 2.5MG/3ML NEB HHN STA (16:55)
[2020-01-16] MEDS ORDERED: FUROSEMIDE 40MG/4ML VIAL IVP ONE (17:00)
[2020-01-16 17:09] LABS: BASOPHILS % 1.1 % (0.0-2.0); EOSINOPHILS % 7.7 % (0.0-5.0); HEMATOCRIT. 29.8 % (36.0-48.0); HEMOGLOBIN. 9.9 g/dL (12.0-16.0); LYMPHOCYTES % 18.4 % (20.0-50.0); MEAN CORPUSCULAR HEMOGLOBIN 29.8 pg (28.0-32.0); MEAN CORPUSCULAR VOLUME 90.1 fL (81.0-99.0); MEAN PLATELET VOLUME 10.5 fl (7.4-10.4); MONOCYTES % 12.6 % (2.0-8.0); NEUTROPHILS % 60.2 % (40.0-76.0); PLATELET 105 x1000/uL (130-400); RED BLOOD CELL COUNT 3.31 mill/uL (4.2-5.4); RED CELL DISTRIBUTION WIDTH 18.3 % (11.6-14.6)
[2020-01-16 17:12] LABS: CHLORIDE 111 mEq/L (98-107)
[2020-01-16 17:15] LABS: INR 1.2; PROTHROMBIN TIME 12.7 sec (9.6-11.0)
[2020-01-16 17:37] LABS: CLARITY URINE CLOUDY (CLEAR); COLOR URINE YELLOW (YELLOW); KETONES URINE TRACE (NEGATIVE); LEUKOCYTE ESTERASE URINE 1+ (NEGATIVE); NITRITE URINE NEGATIVE (NEGATIVE); OCCULT BLOOD URINE NEGATIVE (NEGATIVE); PROTEIN URINE 1+ (NEGATIVE)
[2020-01-16] MEDS ORDERED: LEVOFLOXACIN 500MG PREMIX 100 ML IV ONE (18:15)
[2020-01-16 18:45] LABS: BG BILEVEL POS AIRWAY PRESSURE 15/5; BG CARBOXYHEMOGLOBIN 0.3 % (0.5-1.5); BG DEOXYHEMOGLOBIN 1.4 % (0.0-5.0); BG FRACTION INSPIRED OXYGEN 40; BG HCO3 ACT 22.3 mmol/L (22.0-26.0); BG METHEMOGLOBIN 0.1 % (0.0-1.5); BG OXYGEN SATURATION 98.6 % (92.0-98.5); BG OXYHEMOGLOBIN 98.2 % (94.0-97.0); BG PCO2 40.6 mmHg (35.0-45.0); BG PH 7.357 (7.350-7.450); BG PO2 145.2 mmHg (75.0-100.0); BG SAMPLE SITE RIGHT RADIAL; BG TOTAL HEMOGLOBIN 10.7 g/dL (12.0-18.0); BG VENT MODE MASK - BIPAP; BG VENT RATE 14 set
[2020-01-16] MEDS ORDERED: GUAIFENESIN 200MG/10ML SUGAR FREE UDC PO PRN (19:30)
[2020-01-16] MEDS ORDERED: DEXTROSE 50% WATER 50ML SYRINGE IV PRN (19:30)
[2020-01-16] MEDS ORDERED: MAGNESIUM/ALUMINUM HYDROXIDE/SIMETHICONE 30ML UDC PO PRN (19:30)
[2020-01-16] MEDS ORDERED: IPRATROPIUM/ALBUTEROL 0.5-3(2.5)MG/3ML NEB NEB PRN (19:30)
[2020-01-16] MEDS ORDERED: CLONIDINE 0.1MG TABLET PO PRN (19:30)
[2020-01-16] MEDS ORDERED: NA PHOS,M-B/NA PHOS,DI-BA ENEMA 118ML PR PRN (19:30)
[2020-01-16] MEDS ORDERED: DOCUSATE SODIUM 100MG CAPSULE PO PRN (19:30)
[2020-01-16] MEDS ORDERED: ONDANSETRON HCL 4MG/2ML INJ IV PRN (19:30)
[2020-01-16] MEDS ORDERED: NITROGLYCERIN 0.4MG TABLET SL SL PRN (19:30)
[2020-01-16] MEDS ORDERED: METOLAZONE 10MG TABLET PO NR (20:00)
[2020-01-16 20:27] LABS: T4 FREE 1.24 ng/dL (0.76-1.46)
[2020-01-16 20:41] LABS: FOLIC ACID (FOLATE) SERUM >20 ng/mL ng/mL (>5.38)
[2020-01-16 20:52] LABS: VITAMIN B12 SERUM 924 pg/mL (211-911)
[2020-01-16] MEDS: BLOOD SUGAR DIAGNOSTIC STRIP TEST SCH (21:00)
[2020-01-16] MEDS ORDERED: ZOLPIDEM TARTRATE 5MG TABLET PO PRN (21:00)
[2020-01-16] MEDS: CEFTRIAXONE 1 G PREMIX 50 ML IV SCH (21:35)
[2020-01-16] MEDS: SPIRONOLACTONE 25MG TABLET PO SCH (22:32)
[2020-01-16] MEDS: FUROSEMIDE 40MG/4ML VIAL IVP SCH (22:32)
[2020-01-16] MEDS: FAMOTIDINE 20MG TABLET PO SCH (22:33)
[2020-01-16] MEDS: ASCORBIC ACID 500 MG TABLET PO SCH (22:33)
[2020-01-16] MEDS: ATORVASTATIN CALCIUM 40MG TABLET PO SCH (22:33)
[2020-01-16] MEDS: GUAIFENESIN/DM 600MG/30MG ER TAB 12HR PO SCH (22:33)
[2020-01-17] VITALS (12 sets, daily range): BP systolic 111–148; BP diastolic 58–106
[2020-01-17] MEDS: ENOXAPARIN 40MG/0.4ML SYR SUBCUT SCH ×3 (00:35→20:34)
[2020-01-17] MEDS: PREGABALIN 25MG CAPSULE PO SCH ×3 (00:35→20:34)
[2020-01-17] MEDS: INSULIN LISPRO 100 UNITS/ML SUBCUT SCH ×5 (00:35→20:36)
[2020-01-17 00:48] LABS: CREATINE KINASE 40 IU/L (26-192)
[2020-01-17 00:49] LABS: CREATINE KINASE MB FRACTION < 1.0 ng/mL (0.5-3.6)
[2020-01-17] MEDS: ACETAMINOPHEN 325MG TABLET PO PRN (02:21)
[2020-01-17] MEDS: CARVEDILOL 3.125 MG TABLET PO SCH ×2 (05:51→18:17)
[2020-01-17 07:19] LABS: CREATINE KINASE MB FRACTION 1.1 ng/mL (0.5-3.6)
[2020-01-17] MEDS: BLOOD SUGAR DIAGNOSTIC STRIP TEST SCH ×4 (07:44→20:35)
[2020-01-17] MEDS ORDERED: ASPIRIN 325MG EC TABLET PO SCH (09:00)
[2020-01-17 09:26] LABS: *BARBITURATES SCREEN URINE NEGATIVE (NEGATIVE)
[2020-01-17 09:27] LABS: *AMPHETAMINES SCREEN URINE NEGATIVE (NEGATIVE); *BENZODIAZEPINES SCREEN URINE NEGATIVE (NEGATIVE); *COCAINE SCREEN URINE NEGATIVE (NEGATIVE); METHADONE URINE SCREEN NEGATIVE (NEGATIVE); OPIATES URINE SCREEN NEGATIVE (NEGATIVE); PHENCYCLIDINE URINE SCREEN NEGATIVE (NEGATIVE)
[2020-01-17 09:28] LABS: CANNABINOID URINE SCREEN NEGATIVE (NEGATIVE)
[2020-01-17] MEDS: FUROSEMIDE 40MG/4ML VIAL IVP SCH ×2 (09:30→21:00)
[2020-01-17] MEDS: ZINC SULFATE 220 MG ( 50 ) CAPSULE PO SCH (09:31)
[2020-01-17] MEDS: ASCORBIC ACID 500 MG TABLET PO SCH ×2 (09:31→20:34)
[2020-01-17] MEDS: GUAIFENESIN/DM 600MG/30MG ER TAB 12HR PO SCH ×2 (09:31→20:34)
[2020-01-17] MEDS: FAMOTIDINE 20MG TABLET PO SCH ×2 (09:32→20:34)
[2020-01-17] MEDS: SPIRONOLACTONE 25MG TABLET PO SCH ×2 (09:32→21:09)
[2020-01-17] MEDS: MONTELUKAST SODIUM 10MG TABLET PO SCH (18:16)
[2020-01-17] MEDS: CEFTRIAXONE 1 G PREMIX 50 ML IV SCH (20:00)
[2020-01-17] MEDS: ATORVASTATIN CALCIUM 40MG TABLET PO SCH (20:34)
[2020-01-17] MEDS: ALPRAZOLAM 0.25 MG TABLET PO PRN (20:34)
[2020-01-17] MEDS: IPRATROPIUM/ALBUTEROL 0.5-3(2.5)MG/3ML NEB HHN SCH (20:38)
[2020-01-18] VITALS (12 sets, daily range): BP systolic 101–137; BP diastolic 62–79
[2020-01-18] MEDS: IPRATROPIUM/ALBUTEROL 0.5-3(2.5)MG/3ML NEB HHN SCH ×4 (00:14→21:00)
[2020-01-18] MEDS: TRAMADOL 50MG TABLET PO PRN ×2 (04:22→21:33)
[2020-01-18] MEDS: CARVEDILOL 3.125 MG TABLET PO SCH ×2 (06:00→17:31)
[2020-01-18] MEDS: INSULIN LISPRO 100 UNITS/ML SUBCUT SCH ×4 (08:00→20:31)
[2020-01-18] MEDS ORDERED: LIDOCAINE HCL 1% 20ML VIAL (Pyxis) INJ ONE (08:19)
[2020-01-18] MEDS: BLOOD SUGAR DIAGNOSTIC STRIP TEST SCH ×4 (08:26→20:31)
[2020-01-18] MEDS: FUROSEMIDE 40MG/4ML VIAL IVP SCH ×2 (09:43→20:30)
[2020-01-18] MEDS: ZINC SULFATE 220 MG ( 50 ) CAPSULE PO SCH (09:43)
[2020-01-18] MEDS: ASCORBIC ACID 500 MG TABLET PO SCH ×2 (09:43→20:31)
[2020-01-18] MEDS: GUAIFENESIN/DM 600MG/30MG ER TAB 12HR PO SCH ×2 (09:43→20:30)
[2020-01-18] MEDS: ALPRAZOLAM 0.25 MG TABLET PO PRN (09:43)
[2020-01-18] MEDS: PREGABALIN 25MG CAPSULE PO SCH ×2 (09:43→20:31)
[2020-01-18] MEDS: ENOXAPARIN 40MG/0.4ML SYR SUBCUT SCH ×2 (09:47→20:31)
[2020-01-18] MEDS: SPIRONOLACTONE 25MG TABLET PO SCH ×2 (09:47→20:30)
[2020-01-18] MEDS: FAMOTIDINE 20MG TABLET PO SCH ×2 (09:48→20:30)
[2020-01-18] MEDS: CEFTRIAXONE 1 G PREMIX 50 ML IV SCH (13:12)
[2020-01-18] MEDS: MONTELUKAST SODIUM 10MG TABLET PO SCH (17:31)
[2020-01-18] MEDS: ASPIRIN 81MG TABLET PO SCH (17:32)
[2020-01-18] MEDS: ATORVASTATIN CALCIUM 40MG TABLET PO SCH (20:30)
[2020-01-18] MEDS ORDERED: CARVEDILOL 3.125 MG TABLET PO NR (22:00)
[2020-01-19] VITALS (12 sets, daily range): BP systolic 95–123; BP diastolic 53–95
[2020-01-19] MEDS: ACETAMINOPHEN 325MG TABLET PO PRN (00:48)
[2020-01-19] MEDS: ALPRAZOLAM 0.25 MG TABLET PO PRN ×2 (00:48→09:33)
[2020-01-19] MEDS: IPRATROPIUM/ALBUTEROL 0.5-3(2.5)MG/3ML NEB HHN SCH ×4 (01:53→20:05)
[2020-01-19 06:46] LABS: BASOPHILS % 0.9 % (0.0-2.0); EOSINOPHILS % 8.2 % (0.0-5.0); HEMATOCRIT. 28.2 % (36.0-48.0); HEMOGLOBIN. 9.4 g/dL (12.0-16.0); LYMPHOCYTES % 25.8 % (20.0-50.0); MEAN CORPUSCULAR VOLUME 90.3 fL (81.0-99.0); MEAN PLATELET VOLUME 10.6 fl (7.4-10.4); MONOCYTES % 14.2 % (2.0-8.0); NEUTROPHILS % 50.9 % (40.0-76.0); PLATELET 99 x1000/uL (130-400); RED BLOOD CELL COUNT 3.12 mill/uL (4.2-5.4); RED CELL DISTRIBUTION WIDTH 18.3 % (11.6-14.6)
[2020-01-19 07:01] LABS: PHOSPHORUS 4.7 mg/dL (2.5-4.9)
[2020-01-19] MEDS: INSULIN LISPRO 100 UNITS/ML SUBCUT SCH ×4 (08:00→21:00)
[2020-01-19] MEDS: BLOOD SUGAR DIAGNOSTIC STRIP TEST SCH ×4 (08:23→21:00)
[2020-01-19] MEDS: ASCORBIC ACID 500 MG TABLET PO SCH ×2 (08:24→20:34)
[2020-01-19] MEDS: ENOXAPARIN 40MG/0.4ML SYR SUBCUT SCH ×2 (08:24→20:36)
[2020-01-19] MEDS: FAMOTIDINE 20MG TABLET PO SCH ×2 (08:24→20:34)
[2020-01-19] MEDS: ZINC SULFATE 220 MG ( 50 ) CAPSULE PO SCH (08:24)
[2020-01-19] MEDS: GUAIFENESIN/DM 600MG/30MG ER TAB 12HR PO SCH ×2 (08:24→20:34)
[2020-01-19] MEDS: FUROSEMIDE 40MG/4ML VIAL IVP SCH (08:24)
[2020-01-19] MEDS: CARVEDILOL 6.25 MG TABLET PO SCH ×2 (08:25→20:33)
[2020-01-19] MEDS: ASPIRIN 81MG TABLET PO SCH ×2 (08:25→17:25)
[2020-01-19] MEDS: SPIRONOLACTONE 25MG TABLET PO SCH ×2 (08:25→20:34)
[2020-01-19] MEDS: PREGABALIN 25MG CAPSULE PO SCH ×2 (08:25→20:32)
[2020-01-19] MEDS: CEFTRIAXONE 1 G PREMIX 50 ML IV SCH (12:31)
[2020-01-19] MEDS: MONTELUKAST SODIUM 10MG TABLET PO SCH (17:25)
[2020-01-19] MEDS: ATORVASTATIN CALCIUM 40MG TABLET PO SCH (20:32)
[2020-01-19] MEDS: TRAMADOL 50MG TABLET PO PRN (20:34)
[2020-01-20] VITALS (12 sets, daily range): BP systolic 90–156; BP diastolic 55–100
[2020-01-20] MEDS: IPRATROPIUM/ALBUTEROL 0.5-3(2.5)MG/3ML NEB HHN SCH ×4 (00:01→20:36)
[2020-01-20] MEDS: INSULIN LISPRO 100 UNITS/ML SUBCUT SCH ×4 (08:00→21:00)
[2020-01-20] MEDS: BLOOD SUGAR DIAGNOSTIC STRIP TEST SCH ×4 (08:16→21:51)
[2020-01-20] MEDS: SPIRONOLACTONE 25MG TABLET PO SCH ×2 (08:42→21:50)
[2020-01-20] MEDS: ASCORBIC ACID 500 MG TABLET PO SCH ×2 (08:42→21:50)
[2020-01-20] MEDS: ZINC SULFATE 220 MG ( 50 ) CAPSULE PO SCH (08:43)
[2020-01-20] MEDS: FAMOTIDINE 20MG TABLET PO SCH ×2 (08:43→21:51)
[2020-01-20] MEDS: ASPIRIN 81MG TABLET PO SCH ×2 (08:43→17:31)
[2020-01-20] MEDS: PREGABALIN 25MG CAPSULE PO SCH ×2 (08:43→21:49)
[2020-01-20] MEDS: CARVEDILOL 6.25 MG TABLET PO SCH ×2 (08:44→21:50)
[2020-01-20] MEDS: FUROSEMIDE 40MG/4ML VIAL IVP SCH (08:45)
[2020-01-20] MEDS: GUAIFENESIN/DM 600MG/30MG ER TAB 12HR PO SCH ×2 (09:29→21:50)
[2020-01-20] MEDS: ALPRAZOLAM 0.25 MG TABLET PO PRN (09:33)
[2020-01-20] MEDS: CEFTRIAXONE 1 G PREMIX 50 ML IV SCH (12:42)
[2020-01-20] MEDS: ENOXAPARIN 40MG/0.4ML SYR SUBCUT SCH (12:51)
[2020-01-20 13:03] LABS: BASOPHILS % 0.4 % (0.0-2.0); HEMATOCRIT. 28.9 % (36.0-48.0); HEMOGLOBIN. 9.5 g/dL (12.0-16.0); LYMPHOCYTES % 15.1 % (20.0-50.0); MEAN CORPUSCULAR HEMOGLOBIN 29.7 pg (28.0-32.0); MEAN CORPUSCULAR VOLUME 90.3 fL (81.0-99.0); MEAN PLATELET VOLUME 10.1 fl (7.4-10.4); MONOCYTES % 14.5 % (2.0-8.0); PLATELET 98 x1000/uL (130-400)
[2020-01-20] MEDS: MONTELUKAST SODIUM 10MG TABLET PO SCH (17:31)
[2020-01-20] MEDS: ATORVASTATIN CALCIUM 40MG TABLET PO SCH (21:50)
[2020-01-21] VITALS (8 sets, daily range): BP systolic 93–105; BP diastolic 57–66
[2020-01-21] MEDS: ACETAMINOPHEN 325MG TABLET PO PRN ×2 (01:05→09:00)
[2020-01-21] MEDS: IPRATROPIUM/ALBUTEROL 0.5-3(2.5)MG/3ML NEB HHN SCH ×4 (01:21→14:30)
[2020-01-21] MEDS: BLOOD SUGAR DIAGNOSTIC STRIP TEST SCH ×2 (07:33→12:05)
[2020-01-21] MEDS: INSULIN LISPRO 100 UNITS/ML SUBCUT SCH ×2 (07:33→12:05)
[2020-01-21] MEDS: SPIRONOLACTONE 25MG TABLET PO SCH (08:56)
[2020-01-21] MEDS: FAMOTIDINE 20MG TABLET PO SCH (08:56)
[2020-01-21] MEDS: ASCORBIC ACID 500 MG TABLET PO SCH (08:56)
[2020-01-21] MEDS: ZINC SULFATE 220 MG ( 50 ) CAPSULE PO SCH (08:56)
[2020-01-21] MEDS: GUAIFENESIN/DM 600MG/30MG ER TAB 12HR PO SCH (08:57)
[2020-01-21] MEDS: FUROSEMIDE 40MG/4ML VIAL IVP SCH (08:57)
[2020-01-21] MEDS: ASPIRIN 81MG TABLET PO SCH ×2 (08:57→16:21)
[2020-01-21] MEDS: PREGABALIN 25MG CAPSULE PO SCH (08:58)
[2020-01-21] MEDS: CARVEDILOL 6.25 MG TABLET PO SCH (08:58)
[2020-01-21] MEDS: CEFTRIAXONE 1 G PREMIX 50 ML IV SCH (12:06)
[2020-01-21] MEDS: MONTELUKAST SODIUM 10MG TABLET PO SCH (16:21)
[2020-01-25 06:11] LABS: 25-HYDROXY VITAMIN D3 23 ng/mL (.)
== END 2020-01-21 18:11 | disposition home or self-care (01) | DRG 871 ==
LOC: ER 16:25 → 5EST 18:19 → EDBEDREQ 18:24 → ENRESERV 21:48 → ER 01-17 00:14
PROVIDERS: ADMIT Hospitalist; ATTEND Hospitalist
PROC: 5A09357 Assistance with Respiratory Ventilation, Less than 24 Consecutive Hours, Continuous Positive Airway Pressure (ICD-10-PCS; 2020-01-16)
PROC: 02HV33Z Insertion of Infusion Device into Superior Vena Cava, Percutaneous Approach (ICD-10-PCS; principal; 2020-01-18)
PROC: B548ZZA Ultrasonography of Superior Vena Cava, Guidance (ICD-10-PCS; 2020-01-18)
PROC: 5A09357 Assistance with Respiratory Ventilation, Less than 24 Consecutive Hours, Continuous Positive Airway Pressure (ICD-10-PCS; 2020-01-18)
PROC: 5A09357 Assistance with Respiratory Ventilation, Less than 24 Consecutive Hours, Continuous Positive Airway Pressure (ICD-10-PCS; 2020-01-19)
PROC: 5A09357 Assistance with Respiratory Ventilation, Less than 24 Consecutive Hours, Continuous Positive Airway Pressure (ICD-10-PCS; 2020-01-21)
DX: A41.51 Sepsis due to Escherichia coli [E. coli] (principal); I50.43 Acute on chronic combined systolic (congestive) and diastolic (congestive) heart failure; J96.01 Acute respiratory failure with hypoxia; G82.50 Quadriplegia, unspecified; N39.0 Urinary tract infection, site not specified; E44.0 Moderate protein-calorie malnutrition; I42.9 Cardiomyopathy, unspecified; Z68.43 Body mass index [BMI] 50.0-59.9, adult; N17.9 Acute kidney failure, unspecified; I11.0 Hypertensive heart disease with heart failure; I27.20 Pulmonary hypertension, unspecified; J44.9 Chronic obstructive pulmonary disease, unspecified; D63.8 Anemia in other chronic diseases classified elsewhere; E78.5 Hyperlipidemia, unspecified; G89.4 Chronic pain syndrome; E78.00 Pure hypercholesterolemia, unspecified; F32.9 Major depressive disorder, single episode, unspecified; E11.42 Type 2 diabetes mellitus with diabetic polyneuropathy; I48.0 Paroxysmal atrial fibrillation; I44.0 Atrioventricular block, first degree; E66.01 Morbid (severe) obesity due to excess calories; M10.9 Gout, unspecified; G47.33 Obstructive sleep apnea (adult) (pediatric); B96.89 Other specified bacterial agents as the cause of diseases classified elsewhere; R26.9 Unspecified abnormalities of gait and mobility; M48.02 Spinal stenosis, cervical region; Z99.81 Dependence on supplemental oxygen; Z79.84 Long term (current) use of oral hypoglycemic drugs; Z79.899 Other long term (current) drug therapy; Z90.710 Acquired absence of both cervix and uterus; Z85.71 Personal history of Hodgkin lymphoma; Z95.810 Presence of automatic (implantable) cardiac defibrillator; Z92.21 Personal history of antineoplastic chemotherapy; Z79.4 Long term (current) use of insulin
CPT/HCPCS: 36415; 36600; 71045; 76937; 80048; 80053; 80061; 80305; 81003; 82306; 82375; 82550; 82553; 82607; 82746; 82805; 82962; 83036; 83540; 83550; 83605; 83735; 83880; 84100; 84145; 84439; 84443; 84484; 85025; 87077; 87186; 93005; 93306; 93970; 94640; 97162; 97165; 97530; 99291; C1725; J0696; J1650; J1815; J1940; J1956; J2930; J3475; J3490

== ENCOUNTER 2020-07-16 14:50 | Inpatient (IN) | payer MEDICARE, MEDICAID ==
[~2020-07-16] VITALS: Ht 162.6 cm; Wt 140.6 kg
[2020-07-16] MEDS ORDERED: FUROSEMIDE 40MG/4ML VIAL IV ONE (15:30)
[2020-07-16] MEDS ORDERED: NITROGLYCERIN OINT 1GM/INCH UDPKT TD ONE (15:30)
[2020-07-16] MEDS ORDERED: ASPIRIN 81MG TABLET PO ONE (15:30)
[2020-07-16 15:53] LABS: BG BASE EXCESS -5.3 mmol/L (-2.0-2.0); BG CARBOXYHEMOGLOBIN 0.8 % (0.5-1.5); BG DEOXYHEMOGLOBIN 0.3 % (0.0-5.0); BG HCO3 ACT 18.5 mmol/L (22.0-26.0); BG METHEMOGLOBIN 0.3 % (0.0-1.5); BG OXYGEN SATURATION 99.7 % (92.0-98.5); BG OXYHEMOGLOBIN 98.6 % (94.0-97.0); BG PCO2 31.2 mmHg (35.0-45.0); BG PH 7.391 (7.350-7.450); BG PO2 312.7 mmHg (75.0-100.0); BG SAMPLE SITE RIGHT RADIAL; BG TOTAL HEMOGLOBIN 13.3 g/dL (12.0-18.0); BG VENT MODE MASK - BIPAP
[2020-07-16 16:59] LABS: BASOPHILS % 0.5 % (0.0-2.0); EOSINOPHILS % 0.5 % (0.0-5.0); HEMATOCRIT. 39.5 % (36.0-48.0); HEMOGLOBIN. 12.7 g/dL (12.0-16.0); LYMPHOCYTES % 16.5 % (20.0-50.0); MEAN CORPUSCULAR HEMOGLOBIN 28.9 pg (28.0-32.0); MEAN CORPUSCULAR VOLUME 89.7 fL (81.0-99.0); MEAN PLATELET VOLUME 9.1 fl (7.4-10.4); MONOCYTES % 8.9 % (2.0-8.0); NEUTROPHILS % 73.6 % (40.0-76.0); PLATELET 149 x1000/uL (130-400); RED CELL DISTRIBUTION WIDTH 17.1 % (11.6-14.6)
[2020-07-16 17:06] LABS: CHLORIDE 107 mEq/L (98-107)
[2020-07-16 17:10] LABS: INR 1.4; PARTIAL THROMBOPLASTIN TIME 29.3 sec (23.4-31.0); PROTHROMBIN TIME 14.1 sec (9.6-11.0)
[2020-07-16] MEDS ORDERED: DEXAMETHASONE 10 MG/ML VIAL IV ONE (18:00)
[2020-07-16] MEDS ORDERED: MAGNESIUM/ALUMINUM HYDROXIDE/SIMETHICONE 30ML UDC PO PRN (21:30)
[2020-07-16] MEDS ORDERED: IPRATROPIUM/ALBUTEROL 0.5-3(2.5)MG/3ML NEB NEB PRN (21:30)
[2020-07-16] MEDS ORDERED: CLONIDINE 0.1MG TABLET PO PRN (21:30)
[2020-07-16] MEDS ORDERED: ONDANSETRON HCL 4MG/2ML INJ IV PRN (21:30)
[2020-07-17] MEDS: ENOXAPARIN 40MG/0.4ML SYR SUBCUT SCH ×2 (02:00→10:06)
[2020-07-17 05:56] LABS: BASOPHILS % 0.8 % (0.0-2.0); EOSINOPHILS % 2.1 % (0.0-5.0); HEMATOCRIT. 37.2 % (36.0-48.0); HEMOGLOBIN. 12.1 g/dL (12.0-16.0); MEAN CORPUSCULAR HEMOGLOBIN 29.2 pg (28.0-32.0); MEAN CORPUSCULAR VOLUME 89.8 fL (81.0-99.0); MEAN PLATELET VOLUME 9.2 fl (7.4-10.4); MONOCYTES % 12.6 % (2.0-8.0); NEUTROPHILS % 62.5 % (40.0-76.0); PLATELET 137 x1000/uL (130-400); RED BLOOD CELL COUNT 4.14 mill/uL (4.2-5.4); RED CELL DISTRIBUTION WIDTH 17.3 % (11.6-14.6)
[2020-07-17 06:19] LABS: CREATINE KINASE MB FRACTION 1.3 ng/mL (0.5-3.6)
[2020-07-17] MEDS: FUROSEMIDE 40MG/4ML VIAL IV SCH ×2 (09:10→17:00)
[2020-07-17] MEDS: ASPIRIN 81MG EC TABLET PO SCH (09:10)
[2020-07-17 11:33] LABS: BG BASE EXCESS -2.5 mmol/L (-2.0-2.0); BG CARBOXYHEMOGLOBIN 0.6 % (0.5-1.5); BG DEOXYHEMOGLOBIN 0.7 % (0.0-5.0); BG FRACTION INSPIRED OXYGEN 50; BG HCO3 ACT 22.8 mmol/L (22.0-26.0); BG METHEMOGLOBIN 0.2 % (0.0-1.5); BG OXYGEN SATURATION 99.3 % (92.0-98.5); BG OXYHEMOGLOBIN 98.5 % (94.0-97.0); BG PCO2 41.2 mmHg (35.0-45.0); BG PO2 179.7 mmHg (75.0-100.0); BG SAMPLE SITE LEFT RADIAL; BG TOTAL HEMOGLOBIN 13.1 g/dL (12.0-18.0); BG TOTAL RESPIRATORY RATE 18 b/min; BG VENT MODE MASK - BIPAP
[2020-07-17] MEDS: INSULIN GLARGINE UD 100 UNITS/ML SYR SUBCUT SCH (22:00)
[2020-07-18] MEDS: ASPIRIN 81MG EC TABLET PO SCH (08:51)
[2020-07-18] MEDS: FUROSEMIDE 40MG/4ML VIAL IV SCH ×2 (08:51→17:53)
[2020-07-18] MEDS: ENOXAPARIN 40MG/0.4ML SYR SUBCUT SCH ×3 (09:44→21:43)
[2020-07-18] MEDS ORDERED: ALBUTEROL 6.7GM HFA INHALER ORI PRN (13:15)
[2020-07-18 18:07] LABS: BASOPHILS % 0.3 % (0.0-2.0); EOSINOPHILS % 0.2 % (0.0-5.0); HEMATOCRIT. 39.4 % (36.0-48.0); HEMOGLOBIN. 12.7 g/dL (12.0-16.0); LYMPHOCYTES % 16.8 % (20.0-50.0); MEAN CORPUSCULAR HEMOGLOBIN 29.1 pg (28.0-32.0); MEAN CORPUSCULAR VOLUME 90.1 fL (81.0-99.0); MEAN PLATELET VOLUME 9.6 fl (7.4-10.4); NEUTROPHILS % 71.7 % (40.0-76.0); PLATELET 155 x1000/uL (130-400); RED BLOOD CELL COUNT 4.38 mill/uL (4.2-5.4); RED CELL DISTRIBUTION WIDTH 17.6 % (11.6-14.6)
[2020-07-18] MEDS: DOCUSATE SODIUM 100MG CAPSULE PO SCH (21:43)
[2020-07-18] MEDS: INSULIN GLARGINE UD 100 UNITS/ML SYR SUBCUT SCH (21:44)
[2020-07-18] MEDS: ACETAMINOPHEN 325MG TABLET PO PRN (23:14)
[2020-07-19 06:43] LABS: BASOPHILS % 0.8 % (0.0-2.0); HEMATOCRIT. 38.4 % (36.0-48.0); HEMOGLOBIN. 12.7 g/dL (12.0-16.0); LYMPHOCYTES % 20.2 % (20.0-50.0); MEAN CORPUSCULAR HEMOGLOBIN 29.5 pg (28.0-32.0); MEAN CORPUSCULAR VOLUME 89.3 fL (81.0-99.0); MEAN PLATELET VOLUME 9.2 fl (7.4-10.4); MONOCYTES % 12.2 % (2.0-8.0); NEUTROPHILS % 65.8 % (40.0-76.0); PLATELET 145 x1000/uL (130-400); RED CELL DISTRIBUTION WIDTH 17.2 % (11.6-14.6)
[2020-07-19] MEDS: HYDROCODONE/ACETAMINOPHEN 5/325MG TABLET PO PRN ×2 (08:48→13:54)
[2020-07-19] MEDS: DOCUSATE SODIUM 100MG CAPSULE PO SCH (08:48)
[2020-07-19] MEDS: ASPIRIN 81MG EC TABLET PO SCH (08:48)
[2020-07-19] MEDS: FUROSEMIDE 40MG/4ML VIAL IV SCH (08:48)
[2020-07-19] MEDS: ENOXAPARIN 40MG/0.4ML SYR SUBCUT SCH ×2 (08:49→23:17)
[2020-07-19 18:18] VITALS: BP 98/83
[2020-07-19 20:00] VITALS: BP 134/75
[2020-07-19] MEDS: IPRATROPIUM/ALBUTEROL 0.5-3(2.5)MG/3ML NEB HHN SCH (20:41)
[2020-07-19 22:00] VITALS: BP 109/72
[2020-07-19] MEDS: INSULIN GLARGINE UD 100 UNITS/ML SYR SUBCUT SCH (22:00)
[2020-07-19] MEDS ORDERED: DEXTROSE 50% WATER 50ML SYRINGE IV PRN ×3 (23:15)
[2020-07-19 23:30] VITALS: BP 116/73
[2020-07-20] VITALS (12 sets, daily range): BP systolic 103–150; BP diastolic 55–133
[2020-07-20] MEDS: IPRATROPIUM/ALBUTEROL 0.5-3(2.5)MG/3ML NEB HHN SCH ×4 (01:23→21:29)
[2020-07-20 06:19] LABS: HEMATOCRIT. 36.7 % (36.0-48.0); HEMOGLOBIN. 12.2 g/dL (12.0-16.0); MEAN CORPUSCULAR HEMOGLOBIN 29.3 pg (28.0-32.0); MEAN CORPUSCULAR VOLUME 88.1 fL (81.0-99.0); MEAN PLATELET VOLUME 9.6 fl (7.4-10.4); PLATELET 118 x1000/uL (130-400); RED BLOOD CELL COUNT 4.17 mill/uL (4.2-5.4); RED CELL DISTRIBUTION WIDTH 17.2 % (11.6-14.6)
[2020-07-20] MEDS: BLOOD SUGAR DIAGNOSTIC STRIP TEST SCH ×4 (07:09→21:00)
[2020-07-20] MEDS: ASPIRIN 81MG EC TABLET PO SCH (08:26)
[2020-07-20] MEDS: FUROSEMIDE 40MG/4ML VIAL IV SCH ×2 (08:26→18:52)
[2020-07-20] MEDS: DOCUSATE SODIUM 100MG CAPSULE PO SCH ×2 (08:27→18:52)
[2020-07-20] MEDS: ENOXAPARIN 40MG/0.4ML SYR SUBCUT SCH ×2 (08:27→22:02)
[2020-07-20] MEDS: HYDROCODONE/ACETAMINOPHEN 5/325MG TABLET PO PRN (13:34)
[2020-07-20 14:30] LABS: PLATELET ESTIMATE DECREASED
[2020-07-20] MEDS: INSULIN GLARGINE UD 100 UNITS/ML SYR SUBCUT SCH (22:05)
[2020-07-20] MEDS: ACETAMINOPHEN 325MG TABLET PO PRN (22:16)
[2020-07-21] VITALS (11 sets, daily range): BP systolic 65–130; BP diastolic 25–95
[2020-07-21] MEDS: IPRATROPIUM/ALBUTEROL 0.5-3(2.5)MG/3ML NEB HHN SCH ×4 (00:57→21:09)
[2020-07-21] MEDS: BLOOD SUGAR DIAGNOSTIC STRIP TEST SCH ×4 (07:30→21:00)
[2020-07-21] MEDS: DOCUSATE SODIUM 100MG CAPSULE PO SCH ×2 (09:21→18:09)
[2020-07-21] MEDS: FUROSEMIDE 40MG/4ML VIAL IV SCH ×2 (09:21→18:09)
[2020-07-21] MEDS: ASPIRIN 81MG EC TABLET PO SCH (09:21)
[2020-07-21] MEDS: ENOXAPARIN 40MG/0.4ML SYR SUBCUT SCH ×2 (09:22→22:00)
[2020-07-21 13:07] LABS: CHLORIDE 104 mEq/L (98-107)
[2020-07-21] MEDS: HYDROCODONE/ACETAMINOPHEN 5/325MG TABLET PO PRN (14:51)
[2020-07-21] MEDS ORDERED: LACTULOSE 20G/30ML UDC PO NR (17:30)
[2020-07-21] MEDS: INSULIN GLARGINE UD 100 UNITS/ML SYR SUBCUT SCH (22:34)
[2020-07-22] VITALS (10 sets, daily range): BP systolic 90–135; BP diastolic 48–112
[2020-07-22] MEDS: IPRATROPIUM/ALBUTEROL 0.5-3(2.5)MG/3ML NEB HHN SCH ×4 (01:28→21:33)
[2020-07-22 07:14] LABS: BASOPHILS % 1.1 % (0.0-2.0); EOSINOPHILS % 6.8 % (0.0-5.0); HEMATOCRIT. 36.8 % (36.0-48.0); HEMOGLOBIN. 12.1 g/dL (12.0-16.0); LYMPHOCYTES % 15.4 % (20.0-50.0); MEAN CORPUSCULAR HEMOGLOBIN 28.8 pg (28.0-32.0); MEAN CORPUSCULAR VOLUME 87.5 fL (81.0-99.0); MEAN PLATELET VOLUME 9.9 fl (7.4-10.4); MONOCYTES % 13.2 % (2.0-8.0); NEUTROPHILS % 63.5 % (40.0-76.0); PLATELET 133 x1000/uL (130-400); RED BLOOD CELL COUNT 4.21 mill/uL (4.2-5.4); RED CELL DISTRIBUTION WIDTH 16.8 % (11.6-14.6)
[2020-07-22] MEDS: BLOOD SUGAR DIAGNOSTIC STRIP TEST SCH ×4 (07:30→21:24)
[2020-07-22] MEDS ORDERED: SODIUM BICARBONATE 4% (2.4MEQ) 5ML VIAL IV ONE (07:52)
[2020-07-22] MEDS ORDERED: LIDOCAINE HCL 1% 20ML VIAL (Pyxis) INJ ONE (07:52)
[2020-07-22 08:54] LABS: CHLORIDE 107 mEq/L (98-107)
[2020-07-22] MEDS: ASPIRIN 81MG EC TABLET PO SCH (08:55)
[2020-07-22] MEDS: FUROSEMIDE 40MG/4ML VIAL IV SCH ×2 (08:55→17:00)
[2020-07-22] MEDS: DOCUSATE SODIUM 100MG CAPSULE PO SCH ×2 (08:55→18:25)
[2020-07-22] MEDS ORDERED: LACTULOSE 20G/30ML UDC PO SCH (10:00)
[2020-07-22] MEDS ORDERED: NON FORMULARY PATIENT HOME MED XX SCH (10:15)
[2020-07-22] MEDS: CITALOPRAM HYDROBROMIDE 10MG TABLET PO SCH (11:21)
[2020-07-22] MEDS: ENOXAPARIN 40MG/0.4ML SYR SUBCUT SCH ×2 (11:22→21:24)
[2020-07-22] MEDS ORDERED: LORAZEPAM 0.5MG TABLET PO PRN (12:15)
[2020-07-22] MEDS: PREGABALIN 50 MG CAPSULE PO SCH (18:25)
[2020-07-22] MEDS: MONTELUKAST SODIUM 10MG TABLET PO SCH (18:25)
[2020-07-22] MEDS: ALLOPURINOL 100 MG TABLET PO SCH (18:25)
[2020-07-22] MEDS: ATORVASTATIN CALCIUM 40MG TABLET PO SCH (21:19)
[2020-07-22] MEDS: INSULIN GLARGINE UD 100 UNITS/ML SYR SUBCUT SCH (21:24)
[2020-07-23] MEDS ORDERED: NON FORMULARY PATIENT HOME MED PO SCH (01:00)
[2020-07-23] MEDS: IPRATROPIUM/ALBUTEROL 0.5-3(2.5)MG/3ML NEB HHN SCH ×3 (01:40→08:52)
[2020-07-23 04:00] VITALS: BP 100/58
[2020-07-23 06:00] VITALS: BP 127/100
[2020-07-23] MEDS: BLOOD SUGAR DIAGNOSTIC STRIP TEST SCH ×4 (07:52→21:00)
[2020-07-23] MEDS: ALLOPURINOL 100 MG TABLET PO SCH ×2 (09:53→18:07)
[2020-07-23] MEDS: FUROSEMIDE 40MG/4ML VIAL IV SCH ×2 (09:53→17:00)
[2020-07-23] MEDS: CITALOPRAM HYDROBROMIDE 10MG TABLET PO SCH (09:53)
[2020-07-23] MEDS: DOCUSATE SODIUM 100MG CAPSULE PO SCH ×2 (09:54→18:07)
[2020-07-23] MEDS: PREGABALIN 50 MG CAPSULE PO SCH ×2 (09:54→18:06)
[2020-07-23] MEDS: ASPIRIN 81MG EC TABLET PO SCH (09:55)
[2020-07-23 10:00] VITALS: BP 88/56
[2020-07-23] MEDS ORDERED: BISACODYL 10MG SUPP PR NR (11:45)
[2020-07-23] MEDS ORDERED: LACTULOSE 20G/30ML UDC PO PRN (11:45)
[2020-07-23 12:13] LABS: BASOPHILS % 0.8 % (0.0-2.0); EOSINOPHILS % 9.3 % (0.0-5.0); HEMATOCRIT. 35.8 % (36.0-48.0); HEMOGLOBIN. 11.7 g/dL (12.0-16.0); LYMPHOCYTES % 22.7 % (20.0-50.0); MEAN CORPUSCULAR HEMOGLOBIN 28.8 pg (28.0-32.0); MEAN CORPUSCULAR VOLUME 88.1 fL (81.0-99.0); MEAN PLATELET VOLUME 9.6 fl (7.4-10.4); MONOCYTES % 12.6 % (2.0-8.0); NEUTROPHILS % 54.6 % (40.0-76.0); PLATELET 122 x1000/uL (130-400); RED BLOOD CELL COUNT 4.06 mill/uL (4.2-5.4); RED CELL DISTRIBUTION WIDTH 17.1 % (11.6-14.6)
[2020-07-23] MEDS: ENOXAPARIN 40MG/0.4ML SYR SUBCUT SCH ×2 (15:04→21:49)
[2020-07-23 18:00] VITALS: BP 101/71
[2020-07-23] MEDS: MONTELUKAST SODIUM 10MG TABLET PO SCH (18:06)
[2020-07-23 20:03] VITALS: BP 100/58
[2020-07-23] MEDS: INSULIN GLARGINE UD 100 UNITS/ML SYR SUBCUT SCH (21:48)
[2020-07-23] MEDS: ATORVASTATIN CALCIUM 40MG TABLET PO SCH (21:48)
[2020-07-24] VITALS (12 sets, daily range): BP systolic 89–156; BP diastolic 39–116
[2020-07-24] MEDS: BLOOD SUGAR DIAGNOSTIC STRIP TEST SCH ×4 (07:30→21:05)
[2020-07-24 07:39] LABS: BASOPHILS % 0.4 % (0.0-2.0); EOSINOPHILS % 6.1 % (0.0-5.0); HEMATOCRIT. 34.8 % (36.0-48.0); HEMOGLOBIN. 11.5 g/dL (12.0-16.0); LYMPHOCYTES % 15.6 % (20.0-50.0); MEAN CORPUSCULAR VOLUME 88.1 fL (81.0-99.0); MEAN PLATELET VOLUME 9.8 fl (7.4-10.4); MONOCYTES % 9.5 % (2.0-8.0); NEUTROPHILS % 68.4 % (40.0-76.0); PLATELET 131 x1000/uL (130-400); RED BLOOD CELL COUNT 3.95 mill/uL (4.2-5.4); RED CELL DISTRIBUTION WIDTH 17.2 % (11.6-14.6)
[2020-07-24] MEDS: IPRATROPIUM/ALBUTEROL 0.5-3(2.5)MG/3ML NEB HHN SCH ×3 (09:02→21:23)
[2020-07-24] MEDS: FUROSEMIDE 40MG/4ML VIAL IV SCH ×2 (09:23→18:17)
[2020-07-24] MEDS: CITALOPRAM HYDROBROMIDE 10MG TABLET PO SCH (09:24)
[2020-07-24] MEDS: ALLOPURINOL 100 MG TABLET PO SCH ×2 (09:24→18:19)
[2020-07-24] MEDS: ENOXAPARIN 40MG/0.4ML SYR SUBCUT SCH ×2 (09:24→21:49)
[2020-07-24] MEDS: ASPIRIN 81MG EC TABLET PO SCH (09:24)
[2020-07-24] MEDS: PREGABALIN 50 MG CAPSULE PO SCH ×2 (09:24→18:17)
[2020-07-24] MEDS: DOCUSATE SODIUM 100MG CAPSULE PO SCH ×2 (09:24→18:17)
[2020-07-24] MEDS: MONTELUKAST SODIUM 10MG TABLET PO SCH (18:17)
[2020-07-24] MEDS: ATORVASTATIN CALCIUM 40MG TABLET PO SCH (21:48)
[2020-07-24] MEDS: ACETAMINOPHEN 325MG TABLET PO PRN (21:49)
[2020-07-24] MEDS: INSULIN GLARGINE UD 100 UNITS/ML SYR SUBCUT SCH (21:58)
[2020-07-25] VITALS (12 sets, daily range): BP systolic 104–149; BP diastolic 53–103
[2020-07-25] MEDS: IPRATROPIUM/ALBUTEROL 0.5-3(2.5)MG/3ML NEB HHN SCH ×4 (01:00→21:24)
[2020-07-25] MEDS: BLOOD SUGAR DIAGNOSTIC STRIP TEST SCH ×3 (07:30→17:30)
[2020-07-25 07:33] LABS: BASOPHILS % 0.8 % (0.0-2.0); EOSINOPHILS % 5.7 % (0.0-5.0); HEMATOCRIT. 31.9 % (36.0-48.0); HEMOGLOBIN. 10.4 g/dL (12.0-16.0); LYMPHOCYTES % 18.8 % (20.0-50.0); MEAN CORPUSCULAR HEMOGLOBIN 28.7 pg (28.0-32.0); MEAN CORPUSCULAR VOLUME 87.9 fL (81.0-99.0); MEAN PLATELET VOLUME 9.5 fl (7.4-10.4); NEUTROPHILS % 61.7 % (40.0-76.0); PLATELET 108 x1000/uL (130-400); RED BLOOD CELL COUNT 3.63 mill/uL (4.2-5.4); RED CELL DISTRIBUTION WIDTH 16.6 % (11.6-14.6)
[2020-07-25] MEDS: PREGABALIN 50 MG CAPSULE PO SCH ×2 (09:02→17:40)
[2020-07-25] MEDS: ASPIRIN 81MG EC TABLET PO SCH (09:02)
[2020-07-25] MEDS: DOCUSATE SODIUM 100MG CAPSULE PO SCH ×2 (09:02→17:41)
[2020-07-25] MEDS: FUROSEMIDE 40MG/4ML VIAL IV SCH ×2 (09:03→17:40)
[2020-07-25] MEDS: ALLOPURINOL 100 MG TABLET PO SCH ×2 (09:03→17:41)
[2020-07-25] MEDS: ENOXAPARIN 40MG/0.4ML SYR SUBCUT SCH ×2 (09:03→21:34)
[2020-07-25] MEDS: CITALOPRAM HYDROBROMIDE 10MG TABLET PO SCH (09:03)
[2020-07-25] MEDS ORDERED: POTASSIUM CHLORIDE 20MEQ TABLET SR PO NR (11:30)
[2020-07-25] MEDS: MONTELUKAST SODIUM 10MG TABLET PO SCH (17:41)
[2020-07-25] MEDS: ATORVASTATIN CALCIUM 40MG TABLET PO SCH (21:34)
[2020-07-25] MEDS: INSULIN GLARGINE UD 100 UNITS/ML SYR SUBCUT SCH (21:49)
[2020-07-26] VITALS (10 sets, daily range): BP systolic 101–132; BP diastolic 50–100
[2020-07-26] MEDS: IPRATROPIUM/ALBUTEROL 0.5-3(2.5)MG/3ML NEB HHN SCH ×3 (01:02→20:04)
[2020-07-26] MEDS: PREGABALIN 50 MG CAPSULE PO SCH ×2 (09:06→17:00)
[2020-07-26] MEDS: CITALOPRAM HYDROBROMIDE 10MG TABLET PO SCH (09:06)
[2020-07-26] MEDS: ALLOPURINOL 100 MG TABLET PO SCH ×2 (09:08→17:05)
[2020-07-26] MEDS: DOCUSATE SODIUM 100MG CAPSULE PO SCH ×2 (09:09→17:00)
[2020-07-26] MEDS: ASPIRIN 81MG EC TABLET PO SCH (09:09)
[2020-07-26] MEDS: FUROSEMIDE 40MG/4ML VIAL IV SCH ×2 (09:13→17:00)
[2020-07-26] MEDS: ENOXAPARIN 40MG/0.4ML SYR SUBCUT SCH ×2 (09:26→21:53)
[2020-07-26] MEDS ORDERED: SORBITOL 70% SOLN 30ML PO NR (16:45)
[2020-07-26 16:50] LABS: BASOPHILS % 0.7 % (0.0-2.0); EOSINOPHILS % 3.2 % (0.0-5.0); HEMATOCRIT. 33.1 % (36.0-48.0); HEMOGLOBIN. 11.1 g/dL (12.0-16.0); LYMPHOCYTES % 10.2 % (20.0-50.0); MEAN CORPUSCULAR HEMOGLOBIN 29.2 pg (28.0-32.0); MEAN CORPUSCULAR VOLUME 86.9 fL (81.0-99.0); MEAN PLATELET VOLUME 9.9 fl (7.4-10.4); MONOCYTES % 10.8 % (2.0-8.0); NEUTROPHILS % 75.1 % (40.0-76.0); PLATELET 110 x1000/uL (130-400); RED CELL DISTRIBUTION WIDTH 16.7 % (11.6-14.6)
[2020-07-26] MEDS: MONTELUKAST SODIUM 10MG TABLET PO SCH (17:05)
[2020-07-26] MEDS: ATORVASTATIN CALCIUM 40MG TABLET PO SCH (21:53)
[2020-07-26] MEDS: INSULIN GLARGINE UD 100 UNITS/ML SYR SUBCUT SCH (22:00)
[2020-07-27] VITALS (12 sets, daily range): BP systolic 82–126; BP diastolic 50–101
[2020-07-27] MEDS: IPRATROPIUM/ALBUTEROL 0.5-3(2.5)MG/3ML NEB HHN SCH ×3 (03:06→20:29)
[2020-07-27] MEDS: BLOOD SUGAR DIAGNOSTIC STRIP TEST SCH ×4 (07:30→21:32)
[2020-07-27 07:58] LABS: BASOPHILS % 0.7 % (0.0-2.0); EOSINOPHILS % 0.7 % (0.0-5.0); HEMATOCRIT. 34.1 % (36.0-48.0); MEAN CORPUSCULAR HEMOGLOBIN 28.4 pg (28.0-32.0); MEAN CORPUSCULAR VOLUME 87.8 fL (81.0-99.0); MEAN PLATELET VOLUME 10.1 fl (7.4-10.4); MONOCYTES % 8.9 % (2.0-8.0); NEUTROPHILS % 81.7 % (40.0-76.0); PLATELET 122 x1000/uL (130-400); RED BLOOD CELL COUNT 3.89 mill/uL (4.2-5.4); RED CELL DISTRIBUTION WIDTH 16.9 % (11.6-14.6)
[2020-07-27 08:14] LABS: CHLORIDE 105 mEq/L (98-107)
[2020-07-27] MEDS: PREGABALIN 50 MG CAPSULE PO SCH ×2 (09:00→17:00)
[2020-07-27] MEDS: ASPIRIN 81MG EC TABLET PO SCH (09:28)
[2020-07-27] MEDS: ALLOPURINOL 100 MG TABLET PO SCH ×2 (09:28→17:23)
[2020-07-27] MEDS: FUROSEMIDE 40MG/4ML VIAL IV SCH ×2 (09:28→17:23)
[2020-07-27] MEDS: ENOXAPARIN 40MG/0.4ML SYR SUBCUT SCH ×2 (09:28→21:32)
[2020-07-27] MEDS: DOCUSATE SODIUM 100MG CAPSULE PO SCH ×2 (09:28→17:23)
[2020-07-27] MEDS: CITALOPRAM HYDROBROMIDE 10MG TABLET PO SCH (09:29)
[2020-07-27] MEDS ORDERED: MAGNESIUM 2 G PREMIX 50 ML IV SCH (13:30)
[2020-07-27] MEDS ORDERED: LACTULOSE 20G/30ML UDC PO PRN (13:45)
[2020-07-27] MEDS: MAGNESIUM OXIDE 400MG TABLET PO SCH (15:30)
[2020-07-27] MEDS: MONTELUKAST SODIUM 10MG TABLET PO SCH (17:23)
[2020-07-27] MEDS: ACETAMINOPHEN 325MG TABLET PO PRN (17:37)
[2020-07-27] MEDS: ATORVASTATIN CALCIUM 40MG TABLET PO SCH (21:32)
[2020-07-27] MEDS: INSULIN GLARGINE UD 100 UNITS/ML SYR SUBCUT SCH (21:35)
[2020-07-28] VITALS (11 sets, daily range): BP systolic 84–133; BP diastolic 51–82
[2020-07-28] MEDS: IPRATROPIUM/ALBUTEROL 0.5-3(2.5)MG/3ML NEB HHN SCH ×4 (00:59→20:42)
[2020-07-28 06:57] LABS: BASOPHILS % 0.4 % (0.0-2.0); EOSINOPHILS % 1.2 % (0.0-5.0); HEMATOCRIT. 33.7 % (36.0-48.0); LYMPHOCYTES % 7.9 % (20.0-50.0); MEAN CORPUSCULAR HEMOGLOBIN 28.4 pg (28.0-32.0); MEAN CORPUSCULAR VOLUME 87.4 fL (81.0-99.0); MEAN PLATELET VOLUME 9.8 fl (7.4-10.4); MONOCYTES % 7.3 % (2.0-8.0); NEUTROPHILS % 83.2 % (40.0-76.0); PLATELET 120 x1000/uL (130-400); RED BLOOD CELL COUNT 3.86 mill/uL (4.2-5.4); RED CELL DISTRIBUTION WIDTH 16.7 % (11.6-14.6)
[2020-07-28] MEDS: BLOOD SUGAR DIAGNOSTIC STRIP TEST SCH ×4 (07:51→21:18)
[2020-07-28] MEDS: PREGABALIN 50 MG CAPSULE PO SCH ×2 (09:00→17:00)
[2020-07-28] MEDS: ALLOPURINOL 100 MG TABLET PO SCH ×2 (09:14→17:25)
[2020-07-28] MEDS: ASPIRIN 81MG EC TABLET PO SCH (09:14)
[2020-07-28] MEDS: ENOXAPARIN 40MG/0.4ML SYR SUBCUT SCH ×2 (09:14→21:17)
[2020-07-28] MEDS: DOCUSATE SODIUM 100MG CAPSULE PO SCH ×2 (09:14→17:24)
[2020-07-28] MEDS: FUROSEMIDE 40MG/4ML VIAL IV SCH ×2 (09:15→17:24)
[2020-07-28] MEDS: MAGNESIUM OXIDE 400MG TABLET PO SCH (09:15)
[2020-07-28] MEDS: CITALOPRAM HYDROBROMIDE 10MG TABLET PO SCH (09:15)
[2020-07-28] MEDS: ACETAMINOPHEN 325MG TABLET PO PRN (09:23)
[2020-07-28] MEDS: MONTELUKAST SODIUM 10MG TABLET PO SCH (17:24)
[2020-07-28] MEDS: ATORVASTATIN CALCIUM 40MG TABLET PO SCH (20:06)
[2020-07-28] MEDS: INSULIN GLARGINE UD 100 UNITS/ML SYR SUBCUT SCH (21:18)
[2020-07-29] VITALS (12 sets, daily range): BP systolic 81–135; BP diastolic 49–82
[2020-07-29] MEDS: IPRATROPIUM/ALBUTEROL 0.5-3(2.5)MG/3ML NEB HHN SCH ×4 (01:56→16:20)
[2020-07-29] MEDS: BLOOD SUGAR DIAGNOSTIC STRIP TEST SCH ×4 (07:30→21:00)
[2020-07-29] MEDS: PREGABALIN 50 MG CAPSULE PO SCH ×2 (09:07→17:08)
[2020-07-29] MEDS: ASPIRIN 81MG EC TABLET PO SCH (09:07)
[2020-07-29] MEDS: CITALOPRAM HYDROBROMIDE 10MG TABLET PO SCH (09:07)
[2020-07-29] MEDS: DOCUSATE SODIUM 100MG CAPSULE PO SCH ×2 (09:07→17:08)
[2020-07-29] MEDS: ALLOPURINOL 100 MG TABLET PO SCH ×2 (09:07→17:08)
[2020-07-29] MEDS: ENOXAPARIN 40MG/0.4ML SYR SUBCUT SCH ×2 (09:08→22:31)
[2020-07-29] MEDS: MAGNESIUM OXIDE 400MG TABLET PO SCH (09:08)
[2020-07-29] MEDS: LACTULOSE 20G/30ML UDC PO SCH (09:08)
[2020-07-29] MEDS: FUROSEMIDE 40MG/4ML VIAL IV SCH ×2 (09:22→17:09)
[2020-07-29] MEDS: MONTELUKAST SODIUM 10MG TABLET PO SCH (17:08)
[2020-07-29] MEDS: ACETAMINOPHEN 325MG TABLET PO PRN (17:08)
[2020-07-29] MEDS: ATORVASTATIN CALCIUM 40MG TABLET PO SCH (22:30)
[2020-07-29] MEDS: INSULIN GLARGINE UD 100 UNITS/ML SYR SUBCUT SCH (22:31)
[2020-07-30] VITALS (10 sets, daily range): BP systolic 81–119; BP diastolic 52–84
[2020-07-30] MEDS: ACETAMINOPHEN 325MG TABLET PO PRN ×2 (05:59→22:12)
[2020-07-30 06:54] LABS: BASOPHILS % 0.9 % (0.0-2.0); EOSINOPHILS % 3.1 % (0.0-5.0); HEMATOCRIT. 32.9 % (36.0-48.0); HEMOGLOBIN. 11.1 g/dL (12.0-16.0); LYMPHOCYTES % 17.5 % (20.0-50.0); MEAN CORPUSCULAR HEMOGLOBIN 29.1 pg (28.0-32.0); MEAN PLATELET VOLUME 10.8 fl (7.4-10.4); MONOCYTES % 12.9 % (2.0-8.0); NEUTROPHILS % 65.6 % (40.0-76.0); PLATELET 131 x1000/uL (130-400); RED BLOOD CELL COUNT 3.82 mill/uL (4.2-5.4); RED CELL DISTRIBUTION WIDTH 16.9 % (11.6-14.6)
[2020-07-30] MEDS: IPRATROPIUM/ALBUTEROL 0.5-3(2.5)MG/3ML NEB HHN SCH ×3 (08:00→20:37)
[2020-07-30] MEDS: BLOOD SUGAR DIAGNOSTIC STRIP TEST SCH ×4 (08:17→21:50)
[2020-07-30] MEDS: PREGABALIN 50 MG CAPSULE PO SCH ×2 (08:53→17:20)
[2020-07-30] MEDS: DOCUSATE SODIUM 100MG CAPSULE PO SCH ×2 (08:53→17:19)
[2020-07-30] MEDS: LACTULOSE 20G/30ML UDC PO SCH (08:53)
[2020-07-30] MEDS: MAGNESIUM OXIDE 400MG TABLET PO SCH (08:53)
[2020-07-30] MEDS: CITALOPRAM HYDROBROMIDE 10MG TABLET PO SCH (08:53)
[2020-07-30] MEDS: ASPIRIN 81MG EC TABLET PO SCH (08:53)
[2020-07-30] MEDS: ALLOPURINOL 100 MG TABLET PO SCH ×2 (08:53→17:20)
[2020-07-30] MEDS: FUROSEMIDE 40MG/4ML VIAL IV SCH ×2 (08:54→17:19)
[2020-07-30] MEDS: ENOXAPARIN 40MG/0.4ML SYR SUBCUT SCH ×2 (10:21→21:55)
[2020-07-30] MEDS: MONTELUKAST SODIUM 10MG TABLET PO SCH (17:20)
[2020-07-30] MEDS: ATORVASTATIN CALCIUM 40MG TABLET PO SCH (21:55)
[2020-07-30] MEDS: INSULIN GLARGINE UD 100 UNITS/ML SYR SUBCUT SCH (21:56)
[2020-07-31] VITALS (12 sets, daily range): BP systolic 83–111; BP diastolic 51–84
[2020-07-31] MEDS: IPRATROPIUM/ALBUTEROL 0.5-3(2.5)MG/3ML NEB HHN SCH ×4 (00:28→20:53)
[2020-07-31 06:52] LABS: BASOPHILS % 0.4 % (0.0-2.0); EOSINOPHILS % 3.3 % (0.0-5.0); HEMATOCRIT. 34.3 % (36.0-48.0); HEMOGLOBIN. 11.2 g/dL (12.0-16.0); LYMPHOCYTES % 19.9 % (20.0-50.0); MEAN CORPUSCULAR HEMOGLOBIN 28.4 pg (28.0-32.0); MEAN CORPUSCULAR VOLUME 87.3 fL (81.0-99.0); MEAN PLATELET VOLUME 11.2 fl (7.4-10.4); MONOCYTES % 13.2 % (2.0-8.0); NEUTROPHILS % 63.2 % (40.0-76.0); PLATELET 157 x1000/uL (130-400); RED BLOOD CELL COUNT 3.93 mill/uL (4.2-5.4); RED CELL DISTRIBUTION WIDTH 17.2 % (11.6-14.6)
[2020-07-31] MEDS: BLOOD SUGAR DIAGNOSTIC STRIP TEST SCH ×4 (07:30→21:25)
[2020-07-31] MEDS: LACTULOSE 20G/30ML UDC PO SCH (09:20)
[2020-07-31] MEDS: PREGABALIN 50 MG CAPSULE PO SCH ×2 (09:20→17:24)
[2020-07-31] MEDS: ASPIRIN 81MG EC TABLET PO SCH (09:20)
[2020-07-31] MEDS: MAGNESIUM OXIDE 400MG TABLET PO SCH (09:20)
[2020-07-31] MEDS: ALLOPURINOL 100 MG TABLET PO SCH ×2 (09:20→17:27)
[2020-07-31] MEDS: FUROSEMIDE 40MG/4ML VIAL IV SCH ×2 (09:20→17:24)
[2020-07-31] MEDS: DOCUSATE SODIUM 100MG CAPSULE PO SCH ×2 (09:21→17:24)
[2020-07-31] MEDS: CITALOPRAM HYDROBROMIDE 10MG TABLET PO SCH (10:26)
[2020-07-31] MEDS: ACETAMINOPHEN 325MG TABLET PO PRN (10:30)
[2020-07-31] MEDS: ENOXAPARIN 40MG/0.4ML SYR SUBCUT SCH ×2 (12:55→21:25)
[2020-07-31] MEDS: MONTELUKAST SODIUM 10MG TABLET PO SCH (17:24)
[2020-07-31] MEDS: MIDODRINE HCL 5MG TABLET PO SCH (17:26)
[2020-07-31] MEDS: ATORVASTATIN CALCIUM 40MG TABLET PO SCH (21:24)
[2020-07-31] MEDS: INSULIN GLARGINE UD 100 UNITS/ML SYR SUBCUT SCH (22:29)
[2020-08-01] VITALS (13 sets, daily range): BP systolic 90–115; BP diastolic 38–72
[2020-08-01] MEDS: IPRATROPIUM/ALBUTEROL 0.5-3(2.5)MG/3ML NEB HHN SCH ×4 (00:58→21:20)
[2020-08-01] MEDS: BLOOD SUGAR DIAGNOSTIC STRIP TEST SCH ×4 (07:43→20:40)
[2020-08-01] MEDS: ALLOPURINOL 100 MG TABLET PO SCH ×2 (08:29→17:53)
[2020-08-01] MEDS: CITALOPRAM HYDROBROMIDE 10MG TABLET PO SCH (08:29)
[2020-08-01] MEDS: DOCUSATE SODIUM 100MG CAPSULE PO SCH ×2 (08:29→17:49)
[2020-08-01] MEDS: ASPIRIN 81MG EC TABLET PO SCH (08:30)
[2020-08-01] MEDS: PREGABALIN 50 MG CAPSULE PO SCH ×2 (08:30→17:49)
[2020-08-01] MEDS: LACTULOSE 20G/30ML UDC PO SCH (08:31)
[2020-08-01] MEDS: MAGNESIUM OXIDE 400MG TABLET PO SCH (08:32)
[2020-08-01] MEDS: MIDODRINE HCL 5MG TABLET PO SCH ×3 (08:34→17:49)
[2020-08-01] MEDS: FUROSEMIDE 40MG/4ML VIAL IV SCH ×2 (08:34→17:53)
[2020-08-01] MEDS: GUAIFENESIN 600MG ER TABLET PO SCH ×2 (09:17→20:44)
[2020-08-01] MEDS: ENOXAPARIN 40MG/0.4ML SYR SUBCUT SCH ×2 (09:18→22:12)
[2020-08-01] MEDS: MONTELUKAST SODIUM 10MG TABLET PO SCH (17:49)
[2020-08-01] MEDS: ACETAMINOPHEN 325MG TABLET PO PRN (20:41)
[2020-08-01] MEDS: ATORVASTATIN CALCIUM 40MG TABLET PO SCH (20:41)
[2020-08-01] MEDS: INSULIN GLARGINE UD 100 UNITS/ML SYR SUBCUT SCH (22:12)
[2020-08-02] VITALS (8 sets, daily range): BP systolic 85–116; BP diastolic 61–78
[2020-08-02] MEDS: IPRATROPIUM/ALBUTEROL 0.5-3(2.5)MG/3ML NEB HHN SCH ×3 (00:38→16:51)
[2020-08-02] MEDS: BLOOD SUGAR DIAGNOSTIC STRIP TEST SCH ×2 (08:02→12:30)
[2020-08-02] MEDS: LACTULOSE 20G/30ML UDC PO SCH (08:36)
[2020-08-02] MEDS: ALLOPURINOL 100 MG TABLET PO SCH (08:36)
[2020-08-02] MEDS: CITALOPRAM HYDROBROMIDE 10MG TABLET PO SCH (08:36)
[2020-08-02] MEDS: DOCUSATE SODIUM 100MG CAPSULE PO SCH (08:36)
[2020-08-02] MEDS: FUROSEMIDE 40MG/4ML VIAL IV SCH (08:36)
[2020-08-02] MEDS: PREGABALIN 50 MG CAPSULE PO SCH (08:36)
[2020-08-02] MEDS: ASPIRIN 81MG EC TABLET PO SCH (08:37)
[2020-08-02] MEDS: MIDODRINE HCL 5MG TABLET PO SCH ×2 (08:37→14:11)
[2020-08-02] MEDS: MAGNESIUM OXIDE 400MG TABLET PO SCH (08:37)
[2020-08-02] MEDS: GUAIFENESIN 600MG ER TABLET PO SCH (08:45)
[2020-08-02] MEDS: ENOXAPARIN 40MG/0.4ML SYR SUBCUT SCH (11:27)
[2020-08-02 13:23] LABS: BG BASE EXCESS -0.3 mmol/L (-2.0-2.0); BG CARBOXYHEMOGLOBIN 0.9 % (0.5-1.5); BG FRACTION INSPIRED OXYGEN 35; BG HCO3 ACT 23.9 mmol/L (22.0-26.0); BG METHEMOGLOBIN 0.2 % (0.0-1.5); BG OXYHEMOGLOBIN 94.9 % (94.0-97.0); BG PCO2 37.4 mmHg (35.0-45.0); BG PH 7.423 (7.350-7.450); BG PO2 79.3 mmHg (75.0-100.0); BG SAMPLE SITE RIGHT RADIAL; BG TOTAL HEMOGLOBIN 11.5 g/dL (12.0-18.0); BG VENT MODE MASK - BIPAP
== END 2020-08-02 18:20 | DRG 291 ==
LOC: ER 14:50 → EDBEDREQTM 17:37 → MICUSO 18:49 → EDBEDREQ 18:53 → EDBEDREQTM 18:53 → 5EST 07-19 16:46
PROVIDERS: ADMIT Internal Medicine; ATTEND Internal Medicine
PROC: 5A09557 Assistance with Respiratory Ventilation, Greater than 96 Consecutive Hours, Continuous Positive Airway Pressure (ICD-10-PCS; principal; 2020-07-16)
PROC: 05HA33Z Insertion of Infusion Device into Left Brachial Vein, Percutaneous Approach (ICD-10-PCS; 2020-07-22)
PROC: B54NZZA Ultrasonography of Left Upper Extremity Veins, Guidance (ICD-10-PCS; 2020-07-22)
DX: I13.0 Hypertensive heart and chronic kidney disease with heart failure and stage 1 through stage 4 chronic kidney disease, or unspecified chronic kidney disease (principal); J96.00 Acute respiratory failure, unspecified whether with hypoxia or hypercapnia; I50.23 Acute on chronic systolic (congestive) heart failure; E66.2 Morbid (severe) obesity with alveolar hypoventilation; I47.2 Ventricular tachycardia; Z68.43 Body mass index [BMI] 50.0-59.9, adult; I42.9 Cardiomyopathy, unspecified; D64.9 Anemia, unspecified; E78.5 Hyperlipidemia, unspecified; I27.20 Pulmonary hypertension, unspecified; I48.0 Paroxysmal atrial fibrillation; J45.909 Unspecified asthma, uncomplicated; M10.9 Gout, unspecified; N18.9 Chronic kidney disease, unspecified; E11.22 Type 2 diabetes mellitus with diabetic chronic kidney disease; E83.42 Hypomagnesemia; F41.9 Anxiety disorder, unspecified; F80.81 Childhood onset fluency disorder; I05.2 Rheumatic mitral stenosis with insufficiency; I25.10 Atherosclerotic heart disease of native coronary artery without angina pectoris; I44.0 Atrioventricular block, first degree; K59.00 Constipation, unspecified; Z20.828 Contact with and (suspected) exposure to other viral communicable diseases; R00.8 Other abnormalities of heart beat; I27.21 Secondary pulmonary arterial hypertension; Z79.4 Long term (current) use of insulin; Z85.43 Personal history of malignant neoplasm of ovary; Z85.71 Personal history of Hodgkin lymphoma; Z95.810 Presence of automatic (implantable) cardiac defibrillator; Z87.891 Personal history of nicotine dependence; Z90.710 Acquired absence of both cervix and uterus; Z92.21 Personal history of antineoplastic chemotherapy; Z79.899 Other long term (current) drug therapy
CPT/HCPCS: 36415; 36600; 71045; 74018; 76937; 80048; 80053; 80061; 82375; 82550; 82553; 82805; 82962; 83036; 83735; 83880; 84443; 84484; 85025; 87635; 93005; 93306; 93970; 93971; 94640; 94660; 99291; C1725; J1100; J1650; J1815; J1940; J3475; J3490; J7070; U0003